=== PATIENT | female | born 1965 | race Caucasian/White ===

== ENCOUNTER 2018-04-29 18:07 | Emergency (ER) | payer MEDICAID, SELFPAY ==
[2018-04-29 18:09] VITALS: BP 138/98; PULSE 95; RESP 18; TEMP 37.1; O2SAT 99
--- NOTE | 2018-04-29 18:14 | DI.CT_ITS ---
SYMPTOM/DIAGNOSIS: RT SUPRAORBITAL PAIN AND SWELLING CT ORBITS: The study was carried out without contrast enhancement. No focal pathology is identified. There is some deterioration of image quality secondary to patient motion. Minimal mucosal thickening in the sphenoid and ethmoid sinuses are noted. There are no air fluid levels. A cortical stepoff is seen at the nasal maxillary suture anteriorly, incompletely imaged which could reflect a nondisplaced age indeterminate fracture. There is mild motion artifact at the skull base. No displaced fractures are visualized in the mandible. The right thomas-orbital soft tissues demonstrate swelling, The visualized pterygoid plates are intact. SUMMARY: No displaced fracture is seen with note made of motion artifact. A cortical step-off is seen at the nasal maxillary suture anteriorly which is incompletely issued and could reflect a nondisplaced age indeterminate fracture. Note is made of right periorbital soft tissue swelling.
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
--- NOTE | 2018-04-29 18:17 | DI.RAD_ITS ---
SYMPTOM/DIAGNOSIS: TRAUMA RIGHT WRIST: There is no evidence of a fracture or dislocation.
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
[2018-04-29 19:49] LABS: Abs Immature Grans 0.01 k/cumm (0.0-0.09); Absolute Basophil Count 0.01 k/cumm (0.0-0.2); Absolute Eosinophil Count 0.04 k/cumm (0.0-0.7); Absolute Lymphocyte Count 1.83 k/cumm (1.2-3.4); Absolute Monocyte Count 0.11 k/cumm (0.11-0.7); Absolute Neutrophil Count 2.21 k/cumm (1.2-6.7); Basophils % 0.2; Immature Grans % 0.2; Lymphocytes % 43.5; Mean Corp. HGB Concentration 34.1 g/dL (32.0-36.0); Mean Corpuscular Hemoglobin 32.4 pg (27.0-33.0); Mean Corpuscular Volume 94.9 fL (80-95); Mean Platelet Volume 10.1 fL (8.0-11.0); Monocytes % 2.6; Neutrophils % 52.5; RBC 4.32 m/cumm (4.00-5.20); RBC Distribution Width 13.3 % (11.7-14.6); White Blood Cell Count 4.21 k/cumm (4.4-10.8)
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
[2018-04-29 20:08] LABS: Anion Gap 8.2 mmol/L (3-11); BUN 24 mg/dL (7-18); CO2 25.8 mmol/L (21.0-32.0); CREATININE 0.78 mg/dL (0.55-1.02); Calcium 8.3 mg/dL (8.5-10.1); Chloride 107 mmol/L (98-107); ETHANOL BLOOD 176.4 mg/dL (<3); Glucose 90 mg/dL (70-100); Potassium 4.2 mmol/L (3.5-5.1); Sodium 141 mmol/L (136-145)
--- NOTE | 2018-04-29 20:11 | NUR.NOTE ---
Nursing Note: Pt resting comfortably - asleep but arousable. C-collar remains in place. Given blankets for comfort. Continue to monitor.
[2018-04-29 20:13] LABS: Platelet Count 83 x1000/uL (130-400)
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
[2018-04-29 20:32] LABS: *AMPHETAMINES SCREEN URINE Negative (Negative); *BARBITURATES SCREEN URINE Negative (Negative); *BENZODIAZEPINES SCREEN URINE Negative (Negative); Cannabinoids THC POSITIVE (Negative); Cocaine Screen,Urine Negative (Negative); METHADONE URINE SCREEN Negative (Negative); OPIATES URINE SCREEN Negative (Negative)
[2018-04-29 20:36] LABS: Tricyclic Antidepressants POSITIVE (Negative)
--- NOTE | 2018-04-29 22:31 | NUR.NOTE ---
Nursing Note: Pt reassessed. Resting comfortably, sleeping but arousable. Declines comfort measures
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
[2018-04-29 23:34] VITALS: BP 138/98; PULSE 95; RESP 18; TEMP 37.1; O2SAT 99
== END 2018-04-29 23:34 | disposition other institution (70) ==
PROVIDERS: Student in an Organized Health Care Education/Training Program; Emergency Provider Student in an Organized Health Care Education/Training Program; PCP Family Medicine
DX: S00.83XA Contusion of other part of head, initial encounter (principal); S02.2XXA Fracture of nasal bones, initial encounter for closed fracture; S69.91XA Unspecified injury of right wrist, hand and finger(s), initial encounter; F10.129 Alcohol abuse with intoxication, unspecified; Y90.6 Blood alcohol level of 120-199 mg/100 ml; Y35.813A Legal intervention involving manhandling, suspect injured, initial encounter; D69.6 Thrombocytopenia, unspecified; F11.20 Opioid dependence, uncomplicated; J44.9 Chronic obstructive pulmonary disease, unspecified; F17.210 Nicotine dependence, cigarettes, uncomplicated
CPT/HCPCS: 21310; 29125; 36415; 80048; 80307; 99285; 70450; 70480; 72125; 73110; 80320; 85025; L0172; L3807

== ENCOUNTER 2018-07-10 11:55 | Outpatient (CLI) | payer MEDICAID, SELFPAY ==
[2018-07-10 12:56] LABS: Abs Immature Grans 0.01 k/cumm (0.0-0.09); Absolute Basophil Count 0.01 k/cumm (0.0-0.2); Absolute Eosinophil Count 0.06 k/cumm (0.0-0.7); Absolute Lymphocyte Count 2.14 k/cumm (1.2-3.4); Absolute Monocyte Count 0.31 k/cumm (0.11-0.7); Absolute Neutrophil Count 2.61 k/cumm (1.2-6.7); Basophils % 0.2; Eosinophils % 1.2; HCT 37.2 % (36.0-46.0); HGB 12.2 g/dL (12.0-15.5); Immature Grans % 0.2; Lymphocytes % 41.6; Mean Corp. HGB Concentration 32.8 g/dL (32.0-36.0); Mean Corpuscular Hemoglobin 32.2 pg (27.0-33.0); Mean Corpuscular Volume 98.2 fL (80-95); Mean Platelet Volume 10.2 fL (8.0-11.0); Neutrophils % 50.8; Platelet Count 202 x1000/uL (130-400); RBC 3.79 m/cumm (4.00-5.20); White Blood Cell Count 5.14 k/cumm (4.4-10.8)
[2018-07-10 13:34] LABS: ALT 28 U/L (12-78); AST 28 U/L (15-37); Albumin 3.4 g/dL (3.4-5.0); Alkaline Phosphatase 74 U/L (46-116); Anion Gap 10.7 mmol/L (3-11); BUN 29 mg/dL (7-18); Bilirubin, Total 0.4 mg/dL (0.2-1.0); CO2 26.3 mmol/L (21.0-32.0); CREATININE 0.89 mg/dL (0.55-1.02); Calcium 8.6 mg/dL (8.5-10.1); Chloride 103 mmol/L (98-107); Glucose 108 mg/dL (70-100); Potassium 3.8 mmol/L (3.5-5.1); Sodium 140 mmol/L (136-145); Total Protein 7.5 g/dL (6.4-8.2)
[2018-07-11 10:00] LABS: Hepatitis C Ab w Rflx HCV PCR Reactive (NEGAT)
[2018-07-14 15:43] LABS: HCV RNA Detection Quantitative Undetected IU/mL (UNDECT)
== END 2018-07-10 12:15 ==
PROVIDERS: PCP Family Medicine; Visit Provider Nurse Practitioner Adult Health
DX: B18.2 Chronic viral hepatitis C (principal)
CPT/HCPCS: 36415; 80053; 86803; 85025; 87522

== ENCOUNTER 2018-09-07 02:49 | Emergency (ER) | payer MEDICAID, SELFPAY ==
--- NOTE | 2018-09-07 02:32 | W.ED.GENAD ---
Discharge Plan Disposition Patient Disposition: [facility] Condition: Stable Discharge Details Chief Complaint: ColdExpose Clinical Impression: Frostbite of both hands Reason For Visit: NATALIYA Primary Care Provider: Sujata Werner ED Provider: Angel Luis Gurrola Home Meds and New Rx's Prescriptions: No Action acetaminophen [Arthritis Pain Relief (acetam)] 650 MG tablet extended release 650 mg PO Q8H PRN RF: 0 lansoprazole 30 MG capsule,delayed release(DR/EC) 30 mg PO DAILY Qty: 90 RF: 3 dextroamphetamine-amphetamine [Adderall XR] 20 MG capsule,extended release 24hr 15 mg PO BID RF: 0 SHERIN Ankle Brace 1 EACH misc 1 ea Miscellaneous DAILY Qty: 1 RF: 0 promethazine 25 MG tablet 25 mg PO TID PRNQty: 90 RF: 11 spironolactone 25 MG tablet 25 mg PO DAILY Qty: 90 RF: 3 nabumetone 500 MG tablet 500 mg PO DAILY Qty: 90 RF: 3 cholecalciferol (vitamin D3) 1,000 UNIT tablet 1,000 unit PO DAILY Qty: 90 RF: 3 baclofen 10 MG tablet 10 mg PO Q4H PRN Qty: 540 RF: 3 short walking boot 1 u Miscellaneous ONCE Qty: 1 RF: 0 cetirizine 10 MG tablet 10 mg PO BID Qty: 180 RF: 3 Lyrica 100 MG capsule 100 mg PO BID Qty: 56 RF: 5 furosemide 40 MG tablet 40 mg PO DAILY Qty: 90 RF: 1 ProAir HFA 8.5 GM HFA aerosol inhaler 2 puff Inhalation Q4H PRN Qty: 5 RF: 0 Flovent HFA 12 GM HFA aerosol inhaler 110 mcg Inhalation prn bid Qty: 5 RF: 0 Multi 1 EACH tablet 1 ea PO DAILY Qty: 90 RF: 1 Boost 237 ML liquid 237 ml PO AC & HS PRNQty: 120 RF: 3 lorazepam 2 MG tablet 10 mg PO BID RF: 0 methadone [Dolophine] 10 MG tablet 40 mg PO DAILY RF: 0 cephalexin 500 MG capsule 500 mg PO QID Qty: 39 RF: 0 doxycycline hyclate 100 MG capsule 100 mg PO BID Qty: 19 RF: 0 Medical Decision Making 53 yo female states that yesterday morning at some time she was outside trying to help her dog when she fell and was unable to get up for unknown period of time. She was eventually able to get back inside and has had progressive worsening of pain, swelling and finger discoloaration of all of her fingers. On exam she has multiple rings on her fingers in multiple locations. The fingers are all significantly swollen, cold to touch and has no sensation to soft touch. She has very large blisters that appear hemorrhagic on exam on the fingers. Feel she requires tertiary care for this, nursing to try and remove the rings on her fingers and will place in warm water bath as well Spoke with [facility] who did not feel they could manage this. Spoke with Dr. Quiroz at [facility] who accepts the patient in transfer. Patient's hands were in a warm water bath for about 30 minutes, fingers are more pliable and warm to touch and do not feel continued warm water bath during transport would be beneficial as they have been at room temperature for quite some time prior to transfer. Differential Diagnosis frostbite, gangrene HPI General Mode of arrival: EMS. Date/Time Provider Initiated Documentation: 09/07/18 03:26. Limitations to Documentation: no limitations. Information obtained by: patient. History of Present Illness 53 year old F presents to the emergency department with the chief complaint of bilateral hand pain and swelling, described as severe, with intensity rated at >10. Quality is described as aching and crushing, and is localized to the upper extremity. Patient reports no radiation. Patient started experiencing this hour(s) (12) and it has been constant. No relieving factors improve symptom(s), No exacerbating factors reported . Patient notes no other symptoms.. Patient did receive the following treatments prior to arrival, none Related Data Home Medications Medication Instructions Recorded Confirmed acetaminophen [Arthritis Pain 650 mg PO Q8H PRN 12/25/16 09/07/18 Relief (acetam)] lansoprazole 30 mg PO DAILY #90 tab-cap 02/11/17 09/07/18 SHERIN Ankle Brace #1 ea 03/05/17 09/07/18 dextroamphetamine-amphetamine 15 mg PO BID tab-cap 03/05/17 09/07/18 [Adderall XR] promethazine 25 mg PO TID PRN #90 tab-cap 05/15/17 09/07/18 spironolactone 25 mg PO DAILY #90 tab-cap 05/23/17 09/07/18 cholecalciferol (vitamin D3) 1,000 unit PO DAILY #90 tab-cap 06/18/17 09/07/18 nabumetone 500 mg PO DAILY #90 tab 06/18/17 09/07/18 baclofen 10 mg PO Q4H PRN #540 tab-cap 06/26/17 09/07/18 cetirizine 10 mg PO BID #180 tab-cap 07/16/17 09/07/18 Lyrica 100 mg PO BID #56 tab-cap 08/20/17 09/07/18 Boost 237 ml PO AC & HS PRN #120 bottle 08/27/17 09/07/18 Flovent HFA 110 mcg INHALATION prn bid #5 08/27/17 09/07/18 inhaler Multi 1 ea PO DAILY #90 tab 08/27/17 09/07/18 ProAir HFA 2 puff INHALATION Q4H PRN #5 08/27/17 09/07/18 inhaler furosemide 40 mg PO DAILY #90 tab-cap 08/27/17 09/07/18 lorazepam 10 mg PO BID 11/05/17 09/07/18 cephalexin 500 mg PO QID #39 cap 11/09/17 09/07/18 doxycycline hyclate 100 mg PO BID #19 cap 11/09/17 09/07/18 methadone [Dolophine] 40 mg PO DAILY 11/09/17 09/07/18 Previous Rx's Medication Instructions Recorded spironolactone 25 mg PO DAILY #90 tab-cap 05/23/17 cholecalciferol (vitamin D3) 1,000 unit PO DAILY #90 tab-cap 06/18/17 nabumetone 500 mg PO DAILY #90 tab 06/18/17 baclofen 10 mg PO Q4H PRN #540 tab-cap 06/26/17 cetirizine 10 mg PO BID #180 tab-cap 07/16/17 Lyrica 100 mg PO BID #56 tab-cap 08/20/17 Flovent HFA 110 mcg INHALATION prn bid #5 08/27/17 inhaler Multi 1 ea PO DAILY #90 tab 08/27/17 ProAir HFA 2 puff INHALATION Q4H PRN #5 08/27/17 inhaler furosemide 40 mg PO DAILY #90 tab-cap 08/27/17 cephalexin 500 mg PO QID #39 cap 11/09/17 doxycycline hyclate 100 mg PO BID #19 cap 11/09/17 Allergies Allergy/AdvReac Type Severity Reaction Status Date / Time codeine Allergy Severe THROAT Unverified 09/07/18 03:15 SWELLING adhesive Allergy Itching Unverified 09/07/18 03:15 cat dander Allergy Unverified 09/07/18 03:15 pollen extracts Allergy Unverified 09/07/18 03:15 DANDER DUST Allergy Mild Uncoded 09/07/18 03:15 LOTIONS Allergy Unknown Uncoded 09/07/18 03:15 General MAXI: 3 Review of Systems Review of Systems All systems reviewed & are unremarkable except as noted in HPI and below Constitutional Denies chills and Denies fever(s) Cardiovascular Denies chest pain Gastrointestinal Denies abdominal pain, Denies nausea and Denies vomiting PFSH Medical History Bipolar disorder (Acute) Endocarditis (Acute) Polysubstance dependence including opioid type drug with complication, continuous use (Acute) Chronic osteomyelitis of right shoulder region (Acute) Alcohol abuse Asthma Bipolar disorder Cervical spondylosis Chronic hepatitis Drug abuse Endocarditis Endometriosis Gastroesophageal reflux disease Hepatitis C Inactive tuberculosis Lichen simplex chronicus Methicillin resistant Staphylococcus aureus infection Osteomyelitis Tobacco dependence syndrome Surgical History Abdominal hysterectomy (05/05/03) Colonoscopy - MAC Debridement, Bone Diagnostic Laproscopy EGD - MAC (~2001) Family History Mother Diabetes Brother Diabetes Other Neoplasm Social History Smoking/Tobacco Use Status: Current-Occasional Exam Const General: no acute distress Orientation: alert HENMT Head: normal to inspection Ears: external ears normal General nose exam: external nose normal Mouth: moist mucous membranes Eyes General: appearance normal, both eyes and all related structures Neck Neck: normal visual inspection Resp Effort & Inspection: normal respiratory effort and able to speak in complete sentences Cardio Rate: regular rate Skin General skin exam: pallor Neuro General: alert and oriented x3 Extrem Right upper extremity: cyanosis and edema Left upper extremity: cyanosis and edema Psych Mental Status: mental status grossly normal
--- NOTE | 2018-09-07 02:55 | ED.GENADUL_ITS ---
Discharge Plan Disposition Patient Disposition: [facility] Condition: Stable Discharge Details Chief Complaint: ColdExpose Clinical Impression: Frostbite of both hands Reason For Visit: NATALIYA Primary Care Provider: Sujata Werner ED Provider: Angel Luis Gurrola Home Meds and New Rx's Prescriptions: No Action acetaminophen [Arthritis Pain Relief (acetam)] 650 MG tablet extended release 650 mg PO Q8H PRN RF: 0 lansoprazole 30 MG capsule,delayed release(DR/EC) 30 mg PO DAILY Qty: 90 RF: 3 dextroamphetamine-amphetamine [Adderall XR] 20 MG capsule,extended release 24hr 15 mg PO BID RF: 0 SHERIN Ankle Brace 1 EACH misc 1 ea Miscellaneous DAILY Qty: 1 RF: 0 promethazine 25 MG tablet 25 mg PO TID PRNQty: 90 RF: 11 spironolactone 25 MG tablet 25 mg PO DAILY Qty: 90 RF: 3 nabumetone 500 MG tablet 500 mg PO DAILY Qty: 90 RF: 3 cholecalciferol (vitamin D3) 1,000 UNIT tablet 1,000 unit PO DAILY Qty: 90 RF: 3 baclofen 10 MG tablet 10 mg PO Q4H PRN Qty: 540 RF: 3 short walking boot 1 u Miscellaneous ONCE Qty: 1 RF: 0 cetirizine 10 MG tablet 10 mg PO BID Qty: 180 RF: 3 Lyrica 100 MG capsule 100 mg PO BID Qty: 56 RF: 5 furosemide 40 MG tablet 40 mg PO DAILY Qty: 90 RF: 1 ProAir HFA 8.5 GM HFA aerosol inhaler 2 puff Inhalation Q4H PRN Qty: 5 RF: 0 Flovent HFA 12 GM HFA aerosol inhaler 110 mcg Inhalation prn bid Qty: 5 RF: 0 Multi 1 EACH tablet 1 ea PO DAILY Qty: 90 RF: 1 Boost 237 ML liquid 237 ml PO AC & HS PRNQty: 120 RF: 3 lorazepam 2 MG tablet 10 mg PO BID RF: 0 methadone [Dolophine] 10 MG tablet 40 mg PO DAILY RF: 0 cephalexin 500 MG capsule 500 mg PO QID Qty: 39 RF: 0 doxycycline hyclate 100 MG capsule 100 mg PO BID Qty: 19 RF: 0 Medical Decision Making 53 yo female states that yesterday morning at some time she was outside trying to help her dog when she fell and was unable to get up for unknown period of time. She was eventually able to get back inside and has had progressive worsening of pain, swelling and finger discoloaration of all of her fingers. On exam she has multiple rings on her fingers in multiple locations. The fingers are all significantly swollen, cold to touch and has no sensation to soft touch. She has very large blisters that appear hemorrhagic on exam on the fingers. Feel she requires tertiary care for this, nursing to try and remove the rings on her fingers and will place in warm water bath as well Spoke with [facility] [place] did not feel they could manage this. Spoke with [facility]. Quiroz at [facility] who accepts the patient in transfer. Patient's hands were in a warm water bath for about 30 minutes, fingers are more pliable and warm to touch and do not feel continued warm water bath during transport would be beneficial as they have been at room temperature for quite some time prior to transfer. Differential Diagnosis frostbite, gangrene HPI General Mode of arrival: EMS . Date/Time Provider Initiated Documentation: 09/07/18 03:26 . Limitations to Documentation: no limitations . Information obtained by: patient . History of Present Illness 53 year old F presents to the emergency department with the chief complaint of bilateral hand pain and swelling, described as severe, with intensity rated at >10. Quality is described as aching and crushing, and is localized to the upper extremity. Patient reports no radiation. Patient started experiencing this hour(s) (12) and it has been constant. No relieving factors improve symptom(s), No exacerbating factors reported . Patient notes no other symptoms.. Patient did receive the following treatments prior to arrival, none Related Data Home Medications Medication Instructions Recorded Confirmed acetaminophen [Arthritis Pain 650 mg PO Q8H PRN 12/25/16 09/07/18 Relief (acetam)] lansoprazole 30 mg PO DAILY #90 tab-cap 02/11/17 09/07/18 SHERIN Ankle Brace #1 ea 03/05/17 09/07/18 dextroamphetamine-amphetamine 15 mg PO BID tab-cap 03/05/17 09/07/18 [Adderall XR] promethazine 25 mg PO TID PRN #90 tab-cap 05/15/17 09/07/18 spironolactone 25 mg PO DAILY #90 tab-cap 05/23/17 09/07/18 cholecalciferol (vitamin D3) 1,000 unit PO DAILY #90 tab-cap 06/18/17 09/07/18 nabumetone 500 mg PO DAILY #90 tab 06/18/17 09/07/18 baclofen 10 mg PO Q4H PRN #540 tab-cap 06/26/17 09/07/18 cetirizine 10 mg PO BID #180 tab-cap 07/16/17 09/07/18 Lyrica 100 mg PO BID #56 tab-cap 08/20/17 09/07/18 Boost 237 ml PO AC & HS PRN #120 bottle 08/27/17 09/07/18 Flovent HFA 110 mcg INHALATION prn bid #5 08/27/17 09/07/18 inhaler Multi 1 ea PO DAILY #90 tab 08/27/17 09/07/18 ProAir HFA 2 puff INHALATION Q4H PRN #5 08/27/17 09/07/18 inhaler furosemide 40 mg PO DAILY #90 tab-cap 08/27/17 09/07/18 lorazepam 10 mg PO BID 11/05/17 09/07/18 cephalexin 500 mg PO QID #39 cap 11/09/17 09/07/18 doxycycline hyclate 100 mg PO BID #19 cap 11/09/17 09/07/18 methadone [Dolophine] 40 mg PO DAILY 11/09/17 09/07/18 Previous Rx's Medication Instructions Recorded spironolactone 25 mg PO DAILY #90 tab-cap 05/23/17 cholecalciferol (vitamin D3) 1,000 unit PO DAILY #90 tab-cap 06/18/17 nabumetone 500 mg PO DAILY #90 tab 06/18/17 baclofen 10 mg PO Q4H PRN #540 tab-cap 06/26/17 cetirizine 10 mg PO BID #180 tab-cap 07/16/17 Lyrica 100 mg PO BID #56 tab-cap 08/20/17 Flovent HFA 110 mcg INHALATION prn bid #5 08/27/17 inhaler Multi 1 ea PO DAILY #90 tab 08/27/17 ProAir HFA 2 puff INHALATION Q4H PRN #5 08/27/17 inhaler furosemide 40 mg PO DAILY #90 tab-cap 08/27/17 cephalexin 500 mg PO QID #39 cap 11/09/17 doxycycline hyclate 100 mg PO BID #19 cap 11/09/17 Allergies Allergy/AdvReac Type Severity Reaction Status Date / Time codeine Allergy Severe THROAT Unverified 09/07/18 03:15 SWELLING adhesive Allergy Itching Unverified 09/07/18 03:15 cat dander Allergy Unverified 09/07/18 03:15 pollen extracts Allergy Unverified 09/07/18 03:15 DANDER DUST Allergy Mild Uncoded 09/07/18 03:15 LOTIONS Allergy Unknown Uncoded 09/07/18 03:15 General MAXI: 3 Review of Systems Review of Systems All systems reviewed & are unremarkable except as noted in HPI and below Constitutional Denies chills and Denies fever(s) Cardiovascular Denies chest pain Gastrointestinal Denies abdominal pain, Denies nausea and Denies vomiting PFSH Medical History Bipolar disorder (Acute) Endocarditis (Acute) Polysubstance dependence including opioid type drug with complication, continuous use (Acute) Chronic osteomyelitis of right shoulder region (Acute) Alcohol abuse Asthma Bipolar disorder Cervical spondylosis Chronic hepatitis Drug abuse Endocarditis Endometriosis Gastroesophageal reflux disease Hepatitis C Inactive tuberculosis Lichen simplex chronicus Methicillin resistant Staphylococcus aureus infection Osteomyelitis Tobacco dependence syndrome Surgical History Abdominal hysterectomy (05/05/03) Colonoscopy - MAC Debridement, Bone Diagnostic Laproscopy EGD - MAC (~2001) Family History Mother Diabetes Brother Diabetes Other Neoplasm Social History Smoking/Tobacco Use Status: Current-Occasional Exam Const General: no acute distress Orientation: alert HENMT Head: normal to inspection Ears: external ears normal General nose exam: external nose normal Mouth: moist mucous membranes Eyes General: appearance normal, both eyes and all related structures Neck Neck: normal visual inspection Resp Effort & Inspection: normal respiratory effort and able to speak in complete sentences Cardio Rate: regular rate Skin General skin exam: pallor Neuro General: alert and oriented x3 Extrem Right upper extremity: cyanosis and edema Left upper extremity: cyanosis and edema Psych Mental Status: mental status grossly normal
[2018-09-07] MEDS: HYDROmorphone 2 MG/ML VIAL IVP (03:00)
[2018-09-07 03:06] VITALS: BP 133/81; PULSE 125; RESP 20; TEMP 37.5; O2SAT 97
[2018-09-07 03:10] LABS: Abs Immature Grans 0.01 k/cumm (0.0-0.09); Absolute Basophil Count 0.01 k/cumm (0.0-0.2); Absolute Eosinophil Count 0.05 k/cumm (0.0-0.7); Absolute Monocyte Count 0.57 k/cumm (0.11-0.7); Absolute Neutrophil Count 4.34 k/cumm (1.2-6.7); Basophils % 0.1; Eosinophils % 0.7; HCT 40.5 % (36.0-46.0); HGB 13.8 g/dL (12.0-15.5); Immature Grans % 0.1; Lymphocytes % 26.5; Mean Corp. HGB Concentration 34.1 g/dL (32.0-36.0); Mean Corpuscular Hemoglobin 31.2 pg (27.0-33.0); Mean Corpuscular Volume 91.6 fL (80-95); Mean Platelet Volume 10.2 fL (8.0-11.0); Monocytes % 8.4; Neutrophils % 64.2; RBC 4.42 m/cumm (4.00-5.20); RBC Distribution Width 12.8 % (11.7-14.6); White Blood Cell Count 6.78 k/cumm (4.4-10.8)
[2018-09-07 03:23] LABS: ALT 34 U/L (12-78); AST 39 U/L (15-37); Albumin 3.3 g/dL (3.4-5.0); Alkaline Phosphatase 59 U/L (46-116); Anion Gap 9.3 mmol/L (3-11); BUN 19 mg/dL (7-18); CO2 24.7 mmol/L (21.0-32.0); Calcium 8.7 mg/dL (8.5-10.1); Chloride 101 mmol/L (98-107); Glucose 135 mg/dL (70-100); Potassium 3.7 mmol/L (3.5-5.1); Sodium 135 mmol/L (136-145); Total Protein 7.7 g/dL (6.4-8.2)
[2018-09-07 03:30] LABS: Prothrombin Time 10.2 sec (9.3-11.0)
[2018-09-07 03:32] LABS: ETHANOL BLOOD < 3.0 mg/dL (<3)
[2018-09-07 03:41] LABS: Platelet Count 80 x1000/uL (130-400)
[2018-09-07 03:46] VITALS: BP 133/81; PULSE 125; RESP 20; TEMP 37.5; O2SAT 97
== END 2018-09-07 03:41 ==
LOC: ER 03:25
PROVIDERS: Emergency Provider Emergency Medicine; PCP Family Medicine
DX: T33.531A Superficial frostbite of right finger(s), initial encounter (principal); T33.532A Superficial frostbite of left finger(s), initial encounter; X31.XXXA Exposure to excessive natural cold, initial encounter; W18.30XA Fall on same level, unspecified, initial encounter; R23.0 Cyanosis; R60.0 Localized edema; J44.9 Chronic obstructive pulmonary disease, unspecified; F17.210 Nicotine dependence, cigarettes, uncomplicated
CPT/HCPCS: 36415; 80053; 96374; 96375; 99285; 80320; 85025; 85610; 85730

== ENCOUNTER 2018-09-25 11:57 | Inpatient (IN) | payer MEDICAID, SELFPAY ==
[2018-09-25] VITALS (34 sets, daily range): BP systolic 103–132; BP diastolic 61–92; PULSE 80–140; RESP 11–37; TEMP 36.5; O2SAT 98–100
--- NOTE | 2018-09-25 12:12 | W.ED.GENAD ---
Discharge Plan Disposition Patient Disposition: [facility] Condition: Stable Discharge Details Chief Complaint: PsychEval Clinical Impression: Hypercalcemia, Depression, Suicidal ideations Primary Care Provider: Sujata Werner ED Provider: David Caldera Home Meds and New Rx's Prescriptions: No Action acetaminophen [Arthritis Pain Relief (acetam)] 650 MG tablet extended release 650 mg PO Q8H PRN RF: 0 lansoprazole 30 MG capsule,delayed release(DR/EC) 30 mg PO DAILY Qty: 90 RF: 3 dextroamphetamine-amphetamine [Adderall XR] 20 MG capsule,extended release 24hr 15 mg PO BID RF: 0 SHERIN Ankle Brace 1 EACH misc 1 ea Miscellaneous DAILY Qty: 1 RF: 0 promethazine 25 MG tablet 25 mg PO TID PRNQty: 90 RF: 11 spironolactone 25 MG tablet 25 mg PO DAILY Qty: 90 RF: 3 nabumetone 500 MG tablet 500 mg PO DAILY Qty: 90 RF: 3 cholecalciferol (vitamin D3) 1,000 UNIT tablet 1,000 unit PO DAILY Qty: 90 RF: 3 short walking boot 1 u Miscellaneous ONCE Qty: 1 RF: 0 cetirizine 10 MG tablet 10 mg PO BID Qty: 180 RF: 3 Lyrica 100 MG capsule 100 mg PO BID Qty: 56 RF: 5 furosemide 40 MG tablet 40 mg PO DAILY Qty: 90 RF: 1 ProAir HFA 8.5 GM HFA aerosol inhaler 2 puff Inhalation Q4H PRN Qty: 5 RF: 0 Flovent HFA 12 GM HFA aerosol inhaler 110 mcg Inhalation prn bid Qty: 5 RF: 0 Multi 1 EACH tablet 1 ea PO DAILY Qty: 90 RF: 1 Boost 237 ML liquid 237 ml PO AC & HS PRNQty: 120 RF: 3 lorazepam 2 MG tablet 10 mg PO BID RF: 0 methadone [Dolophine] 10 MG tablet 40 mg PO DAILY RF: 0 polyethylene glycol 3350 [Miralax] 17 gram Powder In Packet 17 g PO DAILY PRNRF: 0 calcium carbonate 600 mg calcium (1,500 mg) Tablet 600 mg PO BID RF: 0 diclofenac potassium 50 mg Tablet 1 tab PO BID RF: 0 Medical Decision Making This is a 53-year-old female with multiple past medical problems, who presents today for evaluation of suicidal ideations. She has had multiple stressors in her life as of late, and she states that currently she just wants her life to end. She would like to get in the bathtub and slit her wrists or take a tunnel pills so I . She denies taking any extra medications today. She has had a suicidal attempt in 2016. Patient does look notably anxious. She does show signs of chronic pain in her hands secondary to her old frostbite, but no signs of ischemia or other abnormalities. We will perform medical clearance, consult psychiatry, and recommended admission and placement. 1:57 PM Patient's laboratory workup has returned, no significant abnormalities aside for slightly elevated BUN/creatinine ratio suggesting dehydration, as well as slightly elevated calcium at 12.1. The patient shows no signs of psychosis, significant weakness, or profound fatigue. I doubt that the hypercalcemia is the cause of her depression as this would be inconsistent with a hypercalcemic episode, additionally she has a history of depression, and suicidality in the past. Treatment for this level of otherwise asymptomatic hypercalcemia is merely fluids, which we are already giving secondary to her mild dehydration. I do feel that the patient is otherwise medically cleared, and we will have mental health come and discussed the case with the patient. I do feel that she would benefit from inpatient admission with her history, previous attempts, and current plan. 3:20 PM Our mental health advocates have seen and assessed the patient, and in spite of contacting multiple facilities there are no current beds available. I have contacted the hospitalist Dr. Rajan and discussed the case with him, he agrees with the current assessment and plan. Patient will be [facility] to [facility] for further management until bed placement at a psychiatric facility can be found. I have extensively reviewed the treatment plan with the patient. I have addressed all patient concerns at this time. I have also discussed the plan with the admitting physician and they agree with the current assessment and plan and have agreed to assume responsibility for the patient. All parties demonstrate verbal understanding and agreement with our assessment and plan at this time. EKG 12: 54 Rate 123, intervals normal, sinus tachycardia, no ST elevations or depressions, less than 1 mm elevation in V1 V2. This is J-point elevation. This is normal. There is an inverted T wave in lead III and aVF. No broad terminal S wave in lead I. HPI General Date/Time Provider Initiated Documentation: 09/25/18 11:59. HPI Narrative: This is a 53-year-old female with multiple medical problems including recent frostbite of her hands bilaterally, in addition to a history of hepatitis C, COPD, bipolar disorder, and previous suicide attempt in 2016. She presents today for evaluation of suicidal ideations. Patient states that she has had multiple prior stressors and complications in her life over the last month. She feels that her life is overwhelming and she just wants it to end. She states that she would like to end her life by either cutting her wrist, taking a tub and slicing her wrists in the tub, or taking copious amounts of medications. Patient denies having taken any extra medications today. She denies any auditory or visual hallucinations. She was sent by her psychologist today for further evaluation. Aside for chronic pain, including chronic pain in her hands up to the frostbite the patient has no other complaints. No other modifying factors. She denies any recent surgeries. Related Data Home Medications Medication Instructions Recorded Confirmed acetaminophen [Arthritis Pain 650 mg PO Q8H PRN 12/25/16 09/25/18 Relief (acetam)] lansoprazole 30 mg PO DAILY #90 tab-cap 02/11/17 09/25/18 SHERIN Ankle Brace #1 ea 03/05/17 09/07/18 dextroamphetamine-amphetamine 15 mg PO BID tab-cap 03/05/17 09/07/18 [Adderall XR] promethazine 25 mg PO TID PRN #90 tab-cap 05/15/17 09/25/18 spironolactone 25 mg PO DAILY #90 tab-cap 05/23/17 09/25/18 cholecalciferol (vitamin D3) 1,000 unit PO DAILY #90 tab-cap 06/18/17 09/25/18 nabumetone 500 mg PO DAILY #90 tab 06/18/17 09/25/18 cetirizine 10 mg PO BID #180 tab-cap 07/16/17 09/25/18 Lyrica 100 mg PO BID #56 tab-cap 08/20/17 09/07/18 Boost 237 ml PO AC & HS PRN #120 bottle 08/27/17 09/25/18 Flovent HFA 110 mcg INHALATION prn bid #5 08/27/17 09/25/18 inhaler Multi 1 ea PO DAILY #90 tab 08/27/17 09/25/18 ProAir HFA 2 puff INHALATION Q4H PRN #5 08/27/17 09/25/18 inhaler furosemide 40 mg PO DAILY #90 tab-cap 08/27/17 09/25/18 lorazepam 10 mg PO BID 11/05/17 09/07/18 methadone [Dolophine] 40 mg PO DAILY 11/09/17 09/07/18 calcium carbonate 600 mg PO BID 09/25/18 09/25/18 diclofenac potassium 1 tab PO BID 09/25/18 09/25/18 polyethylene glycol 3350 [Miralax] 17 g PO DAILY PRN 09/25/18 09/25/18 Previous Rx's Medication Instructions Recorded spironolactone 25 mg PO DAILY #90 tab-cap 05/23/17 cholecalciferol (vitamin D3) 1,000 unit PO DAILY #90 tab-cap 06/18/17 nabumetone 500 mg PO DAILY #90 tab 06/18/17 cetirizine 10 mg PO BID #180 tab-cap 07/16/17 Lyrica 100 mg PO BID #56 tab-cap 08/20/17 Flovent HFA 110 mcg INHALATION prn bid #5 08/27/17 inhaler Multi 1 ea PO DAILY #90 tab 08/27/17 ProAir HFA 2 puff INHALATION Q4H PRN #5 08/27/17 inhaler furosemide 40 mg PO DAILY #90 tab-cap 08/27/17 Allergies Allergy/AdvReac Type Severity Reaction Status Date / Time codeine Allergy Severe THROAT Unverified 09/07/18 03:15 SWELLING adhesive Allergy Itching Unverified 09/07/18 03:15 cat dander Allergy Unverified 09/07/18 03:15 pollen extracts Allergy Unverified 09/07/18 03:15 DANDER DUST Allergy Mild Uncoded 09/07/18 03:15 LOTIONS Allergy Unknown Uncoded 09/07/18 03:15 General Stated Complaint: PsychEval MAXI: 2 Review of Systems Review of Systems All systems reviewed & are unremarkable except as noted in HPI and below PFSH Social History Smoking and Tabacco status: Current-Occasional Exam Narrative Exam Narrative: 1.Const: Well-nourished, Well-developed, appearing stated age 2.Eyes: PERRL, no conjunctival injection, and symmetrical lids. 3.ENT: Atraumatic external nose and ears. Moist MM. Neck: Symmetric, trachea midline, No thyromegaly. 4.CVS: +S1/S2, No murmurs or gallops. Peripheral pulses 2+ and equal in all extremities. Brisk capillary refill in all extremities. 5.RESP: Unlabored respiratory effort. Clear to auscultation bilaterally. No wheezes rales or rhonchi 6.GI: Soft, Nontender/Nondistended, No hepatosplenomegaly. No guarding or rebound. 7.MSK: Normocephalic/Atraumatic, Extremities w/o deformity or ttp,Normal movement of all extremities, his fingers are a very evi red. Notable old blisters, and chronic skin breakdown at the tips. Capillary refill remains brisk. Sensation is intact. 8.Skin: Warm, Dry. Please see musculoskeletal 9.Neuro: radiology teacher II-XII grossly intact. Sensation grossly intact, no focal neurologic deficits. 10.Psych: (AAO) x3. Very anxious appearing, tearful and crying Course Vital Signs Pulse 140 H 09/25/18 12:03 Respiratory Rate 18 09/25/18 12:03 Blood Pressure 125/92 H 09/25/18 12:03 Pulse Oximetry 100 09/25/18 12:03 Pulse 140 H 09/25/18 12:03 Respiratory Rate 18 09/25/18 12:03 Respiratory Effort Non-Labored 09/25/18 12:09 Blood Pressure 125/92 H 09/25/18 12:03 Pulse Oximetry 100 09/25/18 12:03 Oxygen Delivery Method Room Air 09/25/18 12:03 Oxygen Flow Rate 0 09/25/18 12:03 Pain Level 10 09/25/18 12:03
[2018-09-25] MEDS: Acetaminophen 500 MG TAB 1000 MG PO (12:58)
[2018-09-25] MEDS: Ketorolac 30 MG/ML VIAL IM (12:59)
[2018-09-25] MEDS: MORPHine 10 MG/ML VIAL 4 MG IVP (12:59)
[2018-09-25] MEDS: Normal Saline 1,000 ML 1000 ML IV ×3 (13:02→14:40)
[2018-09-25 13:05] LABS: Abs Immature Grans 0.02 k/cumm (0.0-0.09); HCT 46.5 % (36.0-46.0); HGB 16.1 g/dL (12.0-15.5); Mean Corp. HGB Concentration 34.6 g/dL (32.0-36.0); Mean Corpuscular Hemoglobin 30.7 pg (27.0-33.0); Mean Corpuscular Volume 88.7 fL (80-95); Mean Platelet Volume 9.8 fL (8.0-11.0); RBC 5.24 m/cumm (4.00-5.20); RBC Distribution Width 13.8 % (11.7-14.6); White Blood Cell Count 11.35 k/cumm (4.4-10.8)
[2018-09-25 13:05] LABS: Bilirubin Negative (Negative); Blood Negative (Negative); Clarity Clear; Glucose Negative (Negative); Ketones Trace mg/dL (Negative); Leukocyte Esterase Negative (Negative); Nitrite Negative (Negative); Specific Gravity 1.015 (1.005-1.025); Urobilinogen 0.2 EU/dL (Up TO 0.2); pH 5.5 (5-8)
[2018-09-25 13:18] LABS: *AMPHETAMINES SCREEN URINE Negative (Negative); *BARBITURATES SCREEN URINE Negative (Negative); *BENZODIAZEPINES SCREEN URINE Negative (Negative); Cannabinoids THC POSITIVE (Negative); Cocaine Screen,Urine Negative (Negative); METHADONE URINE SCREEN Negative (Negative); OPIATES URINE SCREEN Negative (Negative)
[2018-09-25 13:21] LABS: Tricyclic Antidepressants POSITIVE (Negative)
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
[2018-09-25 13:22] LABS: Absolute Monocyte Count 0.68 k/cumm (0.11-0.7); Absolute Neutrophil Count 8.17 k/cumm (1.2-6.7); Atypical Lymphocytes % 5; Diff Comment Manual Differential; Platelet Count 220 x1000/uL (130-400); RBC Morphology Normal
[2018-09-25 13:27] LABS: ALT 26 U/L (12-78); AST 23 U/L (15-37); Albumin 4.1 g/dL (3.4-5.0); Alkaline Phosphatase 70 U/L (46-116); Anion Gap 11.2 mmol/L (3-11); BUN 40 mg/dL (7-18); Bilirubin, Total 0.7 mg/dL (0.2-1.0); CO2 30.8 mmol/L (21.0-32.0); CREATININE 1.57 mg/dL (0.55-1.02); Chloride 93 mmol/L (98-107); Estimated GFR 34.73 (mL/min/1.73m2); Glucose 100 mg/dL (70-100); Potassium 3.6 mmol/L (3.5-5.1); Sodium 135 mmol/L (136-145); TSH (W/Ref FT4) 1.39 uIU/mL (0.358-3.74); Total Protein 10.1 g/dL (6.4-8.2)
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
[2018-09-25 13:36] LABS: Calcium 12.1 mg/dL (8.5-10.1)
[2018-09-25 13:38] LABS: Salicylate 4.4 mg/dL (2.8-20.0)
[2018-09-25 13:45] LABS: ETHANOL BLOOD < 3.0 mg/dL (<3)
[2018-09-25 13:46] LABS: Acetaminophen < 2 ug/mL (10-30)
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
[2018-09-25 15:56] LABS: ALT 19 U/L (12-78); AST 14 U/L (15-37); Albumin 2.4 g/dL (3.4-5.0); Alkaline Phosphatase 40 U/L (46-116); Anion Gap 7.1 mmol/L (3-11); BUN 35 mg/dL (7-18); Bilirubin, Total 0.3 mg/dL (0.2-1.0); CO2 27.9 mmol/L (21.0-32.0); CREATININE 1.22 mg/dL (0.55-1.02); Calcium 8.1 mg/dL (8.5-10.1); Chloride 107 mmol/L (98-107); Estimated GFR 46.47 (mL/min/1.73m2); Glucose 138 mg/dL (70-100); Sodium 142 mmol/L (136-145)
[2018-09-25 16:28] LABS: Potassium 2.8 mmol/L (3.5-5.1)
[2018-09-25] MEDS: Potassium Chloride 20 MEQ TABCR 40 MEQ PO (16:35)
--- NOTE | 2018-09-25 17:04 | HPE_ITS ---
Date of service: 09/25/18 Time of Service: 16:43 Assessment and Plan (1) Depression: Current visit: Yes Status: Chronic Acute on chronic depression. She is voicing suicidal ideation. She had at this point has not had any active attempt but states that she would either slit her wrists or take an overdose. Mental health has seen her and is looking for psychiatric placement. (2) Bipolar disorder: Current visit: Yes Status: Chronic Not currently actively treating bipolar disorder. It is not clear that she has had active follow-up with an ROSA Quesada. She says she sees Nadiya Tyler in [facility] for psychiatric treatment. (3) Tobacco dependence syndrome: Current visit: Yes Status: Chronic Will provide nicotine replete (4) Hepatitis C: Current visit: Yes Status: Chronic No evidence of jaundice or hepatosplenomegaly. No evidence of chronic liver disease at this time. (5) Psychogenic nonepileptic seizure: Current visit: Yes Status: Chronic She has been on Klonopin 1 mg twice daily. Will continue (6) Attention deficit disorder (ADD) in adult: Current visit: Yes Status: Chronic She has been on Adderall XR 20 mg twice daily. Will continue. (7) History of intravenous drug use in remission: Current visit: Yes Status: Resolved She denies any recent IV drug use. Her urine drug screen does not show evidence of intravenous drug abuse. (8) On stimulant medication: Current visit: Yes Status: Chronic Chronically on Adderall for ADHD History of Present Illness Chief Complaint: Suicidal ideation Narrative: This is a 53-year-old woman who presents to the emergency room with suicidal ideation. She states that she is depressed and can no longer take care of herself. Her plan is to either take a drug overdose or slit her wrists. She has a history of a previous very serious drug overdose attempt. She has underlying bipolar disorder, a history of substance abuse. She was evaluated by mental health in the emergency room in an attempt to voluntarily place her in a psychiatric facility failed as there w ere no available beds. She is being admitted to [facility] for further observation in anticipation of psychiatric bed availability. Review of Systems Constitutional Denies excessive sweating, Denies frequent falls, Denies headache(s) and Reports weight loss ENT Denies dizziness, Denies headache(s), Reports nasal congestion and Denies throat swelling Cardiovascular Denies chest pain, Denies edema, Denies dyspnea, Denies dyspnea on exertion and Denies orthopnea Respiratory Denies change in phlegm color, Denies cough, Denies excessive phlegm production, Denies dyspnea and Denies dyspnea on exertion Gastrointestinal Denies change in bowel habits, Denies diarrhea, Denies nausea and Denies vomiting Genitourinary Denies urinary frequency and Denies urinary incontinence Musculoskeletal Denies back pain and Reports deformity (Both hands show residual signs from previous frostbite, swelling, redness, ) Integumentary/Breasts Denies rash, Denies sores and Denies wounds Neurologic Denies confusion, Denies dizziness, Denies frequent falls, Denies headache(s), Denies focal weakness and Denies sensory deficit Psychiatric Reports anxiety, Denies confusion, Denies depression, Reports difficulty concentrating, Reports irritability, Reports mood swings and Reports suicidal ideation Endocrine Denies cold intolerance and Denies excessive sweating Hematologic/Lymphatic Denies easy bleeding and Denies easy bruising Allergic/Immunologic Denies urticaria and Denies throat swelling [facility] Medical History Tobacco dependence syndrome (Chronic) Inactive tuberculosis (Inactive) Drug abuse (Inactive) Alcohol abuse (Inactive) Chronic hepatitis (Chronic) Bipolar disorder (Chronic) Endocarditis (Resolved) Methicillin resistant Staphylococcus aureus infection (Resolved) Cervical spondylosis (Chronic) Lichen simplex chronicus (Resolved) Hepatitis C (Chronic) Gastroesophageal reflux disease (Chronic) Asthma (Chronic) Osteomyelitis (Resolved) Thrombocytopenia (Resolved 08/23/16) Staphylococcal infection of skin (Resolved 11/07/16) Sleep disturbance (Resolved 08/23/16) Psychogenic nonepileptic seizure (Chronic 11/27/16) Paresthesia (Chronic 08/23/16) Osteomyelitis (Resolved 07/09/14) On stimulant medication (Chronic 08/20/17) Mood disorder (Chronic 08/23/16) MRSA (methicillin resistant Staphylococcus aureus) (Resolved 07/09/14) Lichen simplex chronicus (Resolved 07/16/14) History of intravenous drug use in remission (Resolved 07/09/14) History of endocarditis (Resolved 07/09/14) GERD (gastroesophageal reflux disease) (Chronic 07/09/14) Depression (Chronic 08/23/16) Congenital connective tissue disorder (Chronic) Cirrhosis of liver without ascites (Chronic 11/27/16) Chronic pain syndrome (Chronic 10/03/16) Chronic nausea (Chronic 07/09/14) Cervical spondylosis (Chronic 07/09/14) COPD (chronic obstructive pulmonary disease) (Chronic 08/23/16) Attention deficit disorder (ADD) in adult (Chronic) Alcohol abuse (Resolved 07/09/14) Adjustment disorder with mixed anxiety and depressed mood (Chronic 08/27/17) Acute allergic rhinitis due to pollen (Chronic 05/29/17) Polysubstance dependence including opioid type drug with complication, continuous use (Resolved) Chronic osteomyelitis of right shoulder region (Chronic) Endometriosis (Resolved) Surgical History Colonoscopy - MAC (Resolved) Debridement, Bone (Resolved) Abdominal hysterectomy (Resolved 05/05/03) Diagnostic Laproscopy (Resolved) EGD - MAC (Resolved ~2001) Family History Mother Diabetes Brother Diabetes Other Neoplasm Social History Smoking and Tabacco status: Current-Occasional Meds Home Medications Medication Instructions Recorded Confirmed Type acetaminophen [Arthritis Pain 650 mg PO Q8H PRN 12/25/16 09/25/18 History Relief (acetam)] lansoprazole 30 mg PO DAILY #90 tab-cap 02/11/17 09/25/18 History SHERIN Ankle Brace #1 ea 03/05/17 09/07/18 History dextroamphetamine-amphetamine 15 mg PO BID tab-cap 03/05/17 09/07/18 History [Adderall XR] promethazine 25 mg PO TID PRN #90 tab-cap 05/15/17 09/25/18 History spironolactone 25 mg PO DAILY #90 tab-cap 05/23/17 09/25/18 Rx cholecalciferol (vitamin D3) 1,000 unit PO DAILY #90 tab-cap 06/18/17 09/25/18 Rx nabumetone 500 mg PO DAILY #90 tab 06/18/17 09/25/18 Rx Short Walking Boot 1 u MISCELLANEOUS ONCE #1 unit 07/11/17 09/07/18 Clinic cetirizine 10 mg PO BID #180 tab-cap 07/16/17 09/25/18 Rx Lyrica 100 mg PO BID #56 tab-cap 08/20/17 09/07/18 Rx Boost 237 ml PO AC & HS PRN #120 bottle 08/27/17 09/25/18 History Flovent HFA 110 mcg INHALATION prn bid #5 08/27/17 09/25/18 Rx inhaler Multi 1 ea PO DAILY #90 tab 08/27/17 09/25/18 Rx ProAir HFA 2 puff INHALATION Q4H PRN #5 08/27/17 09/25/18 Rx inhaler furosemide 40 mg PO DAILY #90 tab-cap 08/27/17 09/25/18 Rx calcium carbonate 600 mg PO BID 09/25/18 09/25/18 History clonazepam [Klonopin] 1 mg PO BID 09/25/18 09/25/18 History diclofenac potassium 1 tab PO BID 09/25/18 09/25/18 History polyethylene glycol 3350 [Miralax] 17 g PO DAILY PRN 09/25/18 09/25/18 History Allergies Allergy/AdvReac Type Severity Reaction Status Date / Time codeine Allergy Severe THROAT Unverified 09/07/18 03:15 SWELLING adhesive Allergy Itching Unverified 09/07/18 03:15 cat dander Allergy Unverified 09/07/18 03:15 pollen extracts Allergy Unverified 09/07/18 03:15 DANDER DUST Allergy Mild Uncoded 09/07/18 03:15 LOTIONS Allergy Unknown Uncoded 09/07/18 03:15 Exam Narrative Exam Narrative: Anxious appearing, pressured speech, frequent tearful episodes which rapidly joe Const General: cooperative, comfortable, no acute distress and disheveled Nutritional Appearance: thin Orientation: alert, awake and oriented x3 HENMT Head: normal to inspection Ears: hearing grossly normal bilaterally, TM normal on the right and TM normal on the left Outer ear/TM images: 1. red, dry areas 2. red, dry areas General nose exam: external nose normal Face and sinus: face symmetric Mouth: oropharynx normal Teeth and gingiva: poor dentition (No upper teeth, only front teeth in the lower) Eyes General: appearance normal, both eyes and all related structures Neck Neck: normal visual inspection Thyroid: symmetrical Carotids: normal carotid upstroke Lymphatic: no lymphadenopathy noted Chest Chest: normal inspection of the chest Resp Effort & Inspection: normal respiratory effort Auscultation: clear to auscultation bilaterally Cardio Jugular venous pressure: no JVD Rate: regular rate Rhythm: regular rhythm Heart Sounds: S1 normal, S2 normal and no murmurs GI Inspection: normal to inspection Palpation: soft, no hepatosplenomegaly and nontender Back/Spine/Pelvis Back: no CVA tenderness Cervical Spine: normal cervical lordosis Thoracic/Lumbar Spine: thoracic and lumbar spine normal to inspection Skin General skin exam: no rashes or lesions noted Wounds: amputation site (Tips of 2 of her 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 exfoliated, crusted over, no infection) Neuro General: alert, awake, oriented x3, moves all extremities and no focal motor deficits Cranial Nerves: CN's II-XI intact bilaterally Speech: speech normal Extrem General: normal to inspection Hand/finger images: 1. swollen, tender 2. swollen, tender Psych Appearance: disheveled Speech and Movement: agitated and pressured speech Mood: anxious mood, dysthymic mood and manic mood Affect: labile affect, animated and anxious affect Attitude: cooperative Thought Process: circumstantial Insight: limited Other: I can't take care of myself anymore Results Labs : 09/25/18 12:50 09/25/18 15:19 Laboratory Results - last 24 hr 09/25/18 09/25/18 09/25/18 12:00 12:00 12:50 WBC RBC Hgb Hct MCV MCH MCHC RDW Plt Count MPV Immature Gran % Neutrophils % Lymphocytes % Atypical Lymphs % Monocytes % Eosinophils % Basophils % Absolute Neutrophils Absolute Lymphocytes Absolute Monocytes Absolute Eosinophils Absolute Basophils Differential Comment RBC Morphology Sodium Potassium Chloride Carbon Dioxide Anion Gap BUN Creatinine Estimated GFR/1.73 m2 Glucose Calcium Total Bilirubin AST ALT Alkaline Phosphatase Total Protein Albumin TSH Urine Color Yellow Urine Clarity Clear Urine pH 5.5 Ur Specific [place] 1.015 Urine Protein Negative Urine Ketones Trace H Urine Blood Negative Urine Nitrite Negative Urine Bilirubin Negative Urine Urobilinogen 0.2 Ur Leukocyte Esterase Negative Urine Glucose Negative Salicylates 4.4 Urine Opiates Screen Negative Urine Methadone Screen Negative Acetaminophen < 2 L Ur Barbiturates Screen Negative Ur Tricyclics Screen Positive Ur Amphetamines Screen Negative U Benzodiazepines Scrn Negative Urine Cocaine Screen Negative Ur THC Screen Positive Ethyl Alcohol 09/25/18 09/25/18 09/25/18 12:50 12:50 15:19 WBC 11.35 H RBC 5.24 H Hgb 16.1 H Hct 46.5 H MCV 88.7 MCH 30.7 MCHC 34.6 RDW 13.8 Plt Count 220 D MPV 9.8 Immature Gran % 0.0 Neutrophils % 72.0 Lymphocytes % 17.0 Atypical Lymphs % 5 Monocytes % 6.0 Eosinophils % 0.0 Basophils % 0.0 Absolute Neutrophils 8.17 H Absolute Lymphocytes 2.50 Absolute Monocytes 0.68 Absolute Eosinophils 0.00 Absolute Basophils 0.00 Differential Comment Manual differential RBC Morphology Normal Sodium 135 L 142 Potassium 3.6 2.8 L* Chloride 93 L 107 Carbon Dioxide 30.8 27.9 Anion Gap 11.2 H 7.1 BUN 40 H 35 H Creatinine 1.57 H 1.22 H Estimated GFR/1.73 m2 34.73 46.47 Glucose 100 138 H Calcium 12.1 H* 8.1 L Total Bilirubin 0.7 0.3 AST 23 14 L ALT 26 19 Alkaline Phosphatase 70 40 L Total Protein 10.1 H 6.0 L Albumin 4.1 2.4 L TSH 1.39 Urine Color Urine Clarity Urine pH Ur Specific [place] Urine Protein Urine Ketones Urine Blood Urine Nitrite Urine Bilirubin Urine Urobilinogen Ur Leukocyte Esterase Urine Glucose Salicylates Urine Opiates Screen Urine Methadone Screen Acetaminophen Ur Barbiturates Screen Ur Tricyclics Screen Ur Amphetamines Screen U Benzodiazepines Scrn Urine Cocaine Screen Ur THC Screen Ethyl Alcohol < 3.0 Last Vital Signs Pulse 109 H 09/25/18 15:16 Resp 15 09/25/18 15:16 BP 115/68 09/25/18 15:16 Pulse Ox 100 09/25/18 12:03
[2018-09-25] MEDS: clonazePAM 1 MG TAB PO (21:43)
[2018-09-25] MEDS: Pregabalin 100 MG CAP PO (21:44)
[2018-09-25] MEDS: Acetaminophen 325 MG TAB PO (21:45)
[2018-09-25] MEDS: Ibuprofen 400 MG TAB PO (21:46)
[2018-09-26 01:16] VITALS: BP 99/59; PULSE 95; RESP 20; TEMP 36.6; O2SAT 98
[2018-09-26] MEDS: clonazePAM 1 MG TAB PO ×2 (08:04→19:29)
[2018-09-26] MEDS: Lansoprazole 30 MG CAPCR PO (08:04)
[2018-09-26] MEDS: Pregabalin 100 MG CAP PO ×2 (08:04→19:29)
[2018-09-26 08:22] VITALS: BP 120/79; PULSE 109; RESP 28; TEMP 36.6; O2SAT 97
--- NOTE | 2018-09-26 10:22 | INITIAL_ITS ---
- If Service Date Differs Date of service: 09/26/18 Time of Service: 09:53 Care Management Initial Assess REASON FOR HOSPITALIZATION:: Suicidal Ideation PAST MEDICAL HISTORY/PAST SURGICAL HISTORY:: Tobacco dependence syndrome (Chronic). Inactive tuberculosis (Inactive). Drug abuse (Inactive). Alcohol abuse (Inactive). Chronic hepatitis (Chronic). Bipolar disorder (Chronic). Endocarditis (Resolved). Methicillin resistant Staphylococcus aureus infection (Resolved). Cervical spondylosis (Chronic). Lichen simplex chronicus (Resolved). Hepatitis C (Chronic). Gastroesophageal reflux disease (Chronic). Asthma (Chronic). Osteomyelitis (Resolved). Thrombocytopenia (Resolved 08/23/16). Staphylococcal infection of skin (Resolved 11/07/16). Sleep disturbance (Resolved 08/23/16). Psychogenic nonepileptic seizure (Chronic 11/27/16). Paresthesia (Chronic 08/23/16). Osteomyelitis (Resolved 07/09/14). On stimulant medication (Chronic 08/20/17). Mood disorder (Chronic 08/23/16). MRSA (methicillin resistant Staphylococcus aureus) (Resolved 07/09/14). Lichen simplex chronicus (Resolved 07/16/14). History of intravenous drug use in remission (Resolved 07/09/14). History of endocarditis (Resolved 07/09/14). GERD (gastroesophageal reflux disease) (Chronic 07/09/14). Depression (Chronic 08/23/16). Congenital connective tissue disorder (Chronic). Cirrhosis of liver without ascites (Chronic 11/27/16). Chronic pain syndrome (Chronic 10/03/16). Chronic nausea (Chronic 07/09/14). Cervical spondylosis (Chronic 07/09/14). COPD (chronic obstructive pulmonary disease) (Chronic 08/23/16). Attention deficit disorder (ADD) in adult (Chronic). Alcohol abuse (Resolved 07/09/14). Adjustment disorder with mixed anxiety and depressed mood (Chronic 08/27/17). Acute allergic rhinitis due to pollen (Chronic 05/29/17). Polysubstance dependence including opioid type drug with complication, continuous use (Resolved). Chronic osteomyelitis of right shoulder region (Chronic). Endometriosis (Resolved). Colonoscopy - MAC (Resolved). Debridement, Bone (Resolved). Abdominal hysterectomy (Resolved 05/05/03). Diagnostic Laproscopy (Resolved). EGD - MAC (Resolved ~2001) PREVIOUS FUNCTIONAL STATUS/SOCIAL/FAMILY SUPPORTS:: Joe resides with a friend locally. She is independent at baseline, and states that she sees a therapist in the community. CURRENT FUNCTIONAL STATUS:: Currently Joe is lying in bed. She is tearful at times throughout discussion. Joe states that she would like to make a phone call to her daughter, which CM has provided a phone for. ADVANCE DIRECTIVES:: None on file Has patient been provided with information about the portal?: Yes Did the patient sign up for the portal?: No (already signed up) CODE STATUS:: Full Code INSURANCE COVERAGE / FINANCIAL ISSUES:: Medicaid CURRENT HOME/COMMUNITY SERVICES/EQUIPMENT:: Currently Joe has a counselor in the community. she has no medical equipment at home. PRIMARY CARE PHYSICIAN:: Sujata Werner POTENTIAL DISCHARGE NEEDS:: Psychiatric facility placement PATIENT/FAMILY EDUCATION NEEDS:: Review DC instructions, any limitations, and ongoing DC planning discussion. Discuss 'Ask Me Three' ANTICIPATED BARRIERS TO DISCHARGE:: None identified at this time. TRANSPORTATION:: Via [employer] PLAN:: Joe to be placed at a psychiatric facility. Transportation to be via [employer] which CM will assist to facilitate.
--- NOTE | 2018-09-26 11:03 | DI.RAD_ITS ---
SYMPTOMS/DIAGNOSIS: LEUKOCYTOSIS PORTABLE AP CHEST: Note is made of proximal humeral deformity on the right as noted on previous examinations. The heart is not enlarged. The lungs are clear with changes of COPD and scarring. CONCLUSION: No evidence of acute disease.
[2018-09-26] MEDS: Normal Saline 1,000 ML 1000 ML IV (12:07)
[2018-09-26 12:22] LABS: Abs Immature Grans 0.01 k/cumm (0.0-0.09); Absolute Basophil Count 0.02 k/cumm (0.0-0.2); Absolute Eosinophil Count 0.01 k/cumm (0.0-0.7); Absolute Lymphocyte Count 1.93 k/cumm (1.2-3.4); Absolute Monocyte Count 0.39 k/cumm (0.11-0.7); Basophils % 0.3; Eosinophils % 0.2; HGB 12.7 g/dL (12.0-15.5); Immature Grans % 0.2; Lymphocytes % 29.3; Mean Corp. HGB Concentration 33.4 g/dL (32.0-36.0); Mean Corpuscular Hemoglobin 30.7 pg (27.0-33.0); Mean Corpuscular Volume 91.8 fL (80-95); Mean Platelet Volume 9.8 fL (8.0-11.0); Monocytes % 5.9; Neutrophils % 64.1; Platelet Count 137 x1000/uL (130-400); RBC 4.14 m/cumm (4.00-5.20); White Blood Cell Count 6.59 k/cumm (4.4-10.8)
[2018-09-26 12:29] VITALS: BP 123/81; RESP 18; TEMP 37.1; O2SAT 96
[2018-09-26 12:32] LABS: Absolute Neutrophil Count 4.22 k/cumm (1.2-6.7)
[2018-09-26 12:38] LABS: Anion Gap 6.6 mmol/L (3-11); BUN 26 mg/dL (7-18); CO2 26.4 mmol/L (21.0-32.0); CREATININE 0.81 mg/dL (0.55-1.02); Chloride 107 mmol/L (98-107); Glucose 91 mg/dL (70-100); Magnesium 1.5 mg/dL (1.8-2.4); Potassium 4.1 mmol/L (3.5-5.1); Sodium 140 mmol/L (136-145)
[2018-09-26 13:02] LABS: Bilirubin Negative (Negative); Blood Negative (Negative); Clarity Clear; Glucose Negative (Negative); Ketones Negative (Negative); Leukocyte Esterase Negative (Negative); Nitrite Negative (Negative); Urobilinogen 0.2 EU/dL (Up TO 0.2)
[2018-09-26] MEDS: Magnesium Chloride 64 MG TABCR 128 MG PO (13:18)
[2018-09-26] MEDS: MAGNESIUM SULFATE 2 GM/50 ML BAG IVPB (13:18)
[2018-09-26] MEDS: Acetaminophen 325 MG TAB PO (13:50)
[2018-09-26] MEDS: Ibuprofen 400 MG TAB PO (13:50)
[2018-09-26] MEDS: traMADol 50 MG TAB PO (14:51)
--- NOTE | 2018-09-26 15:00 | PDOC.CMPRO ---
- If Service Date Differs Date of service: 09/26/18 Time of Service: 15:00 Care Management Progress Note VOLUNTARY FOR INPATIENT PSYCHIATRIC STABILIZATION. Joe is cooperative and appropriate in all interactions since arriving at [facility]; she has demonstrated appropriate coping and communication skills, has articulated her needs and concerns and is fully engaged during staff interactions. Patient has been crying throughout the conversation and is very emotional. Safety plan has been established with patient, and care team, to adhere to patient goals, identify restrictions based on behavioral status, address nutrition, and determine allowed personal belongings, tools for hygiene and personal care. Determine level of activity including ambulation, level of supervision, visitors, and determine privileges based on behaviors and level of engagement by pt. SAFETY PLAN: 1. Will remain on suicide precautions. In Paper Clothes 2. Will remain in room under direct supervision of one-on-one staff at all times provided by CPSO, SCRIP CLERK, DIRECTOR OF MEDICAL STAFF SERVICES supervisor natural gas plant. 3. May have paper cups, plates, finger foods as well as a metal spoon with which to eat meals. [facility] staff will be responsible for accounting of utensils after meals. 4. Follow [facility] Management of the Admitted Behavioral Health Patient policy. 5. Comfort bath system, may shower if staff available 6. No personal belongings in room 7. Visitors at the discretion of the provider 8. Phone at the discretion of the provider, and if patient?s behavior is appropriate 8. Activities: Coloring, paper, crayons, television if available. 9. May have music therapy IPAD and cordless headphones at the discretion of the provider 11. Due to VOLUNTARY status, if patient wishes to leave [facility], the [facility] day care worker must be contacted to re-evaluate patient prior to patient exiting the building.
[2018-09-26] MEDS: Normal Saline 1,000 ML 80 ML IV (15:40)
[2018-09-26] MEDS: Lidocaine/Prilocaine Cream 5 GM TUBE (15:46)
[2018-09-26 16:00] VITALS: BP 124/80; PULSE 70; RESP 14; TEMP 36.2; O2SAT 98
[2018-09-26] MEDS: Normal Saline Flush 10 ML SYR IVP (17:14)
[2018-09-26 17:30] VITALS: BP 126/70; PULSE 82; RESP 14; TEMP 36; O2SAT 98
--- NOTE | 2018-09-26 17:30 | PHARADMIT ---
Addendum entered by Owen Parham III 09/30/18 12:12: Pharmacy Note Subjective Hand abscess is resolving, ABX switched to Kelfex 1000mg po tid x 14 days. Observed seizure overnight. Objective VS-OK Pain:05/14 ANC- 0.44 WBC- 2.11 Lytes, SCr, H&H,-OK still no BM Assessment Hand cellulits resolving Plan MD Concerned regarding ANC Original Note: Addendum entered by Kandi Corado 09/28/18 11:15: Pharmacy Note Subjective Some discussion about her wanting to leave AMA yesterday Objective BP ok, HR>100 at times, Afebrile, pain 05/14, weight up 3.5kg since admission, I/O ++ Lytes in range Micro right hand drainage: scant/gram positive Vanco trough high 27.3 Assessment IVF's dc'd Buspar dc'd, Hydroxyzine changed to scheduled for anxiety Held Vanco dose total of 12 hours, rescheduled for 750mg IV Q12h Zosyn continues Adderall XR changed from BID to TID with special times (odd dosing) Flexeril added prn for chronic back pain-not rec'd any doses Lovenox for DVT prophylaxis Pain meds: APAP, Flexeril, Ibuprofen, MS IVP, Lyrica No BM recorded, pt voiding independently Plan watch for Micro sensitivity, follow Vanco, Hx of MRSA, may be able to narrow Anbx coverage Original Note: Admission Pharmacy Clinical Review Code Status Full Code Current Weight 45.359 kg Renally Cleared and Narrow Therapeutic Index Meds CRCL ~69 QTc Value / Action Taken 435 BP Control, Fever 123/81 afebrile Electrolytes reviewed K 4.1 (up from 2.8); Mag 1.5 DVT Prophylaxis none Opiate Usage / Scheduled Bowel Regimen Ordered Tramadol prn and Morphine IVP PRN; docusate and miralax Plt/SCr for Heparin / Enoxaparin 137/0.81 INR for Warfarin n/a H/H stable, WBC/Bands 38.0/12.7 Antibiotic appropriateness Zosyn and Vanco (right hand abcess) Cultures and Sensitivities Pending Surgical ABX d/c within 24 hr n/a DM control / Insulin Dosing n/a Heart Failure (Check EF%) (SHERIN's, B-Block, Diuretics) furosemide 40mg daily (home med) sprinolactone 25mg daily (home med) IV to PO Switch no Home Meds Reviewed yes Home Meds Not Ordered promethazine 25 MG tablet 25 mg PO TID PRNQty: 90 RF: 11 spironolactone 25 MG tablet 25 mg PO DAILY Qty: 90 RF: 3 nabumetone 500 MG tablet 500 mg PO DAILY Qty: 90 RF: 3 cholecalciferol (vitamin D3) 1,000 UNIT tablet 1,000 unit PO DAILY Qty: 90 RF: 3 cetirizine 10 MG tablet 10 mg PO BID Qty: 180 RF: 3 Lyrica 100 MG capsule 100 mg PO BID Qty: 56 RF: 5 furosemide 40 MG tablet 40 mg PO DAILY Qty: 90 RF: 1 ProAir HFA 8.5 GM HFA aerosol inhaler 2 puff Inhalation Q4H PRN Qty: 5 RF: 0 Flovent HFA 12 GM HFA aerosol inhaler 110 mcg Inhalation prn bid Qty: 5 RF: 0 Multi 1 EACH tablet 1 ea PO DAILY Qty: 90 RF: 1 Boost 237 ML liquid 237 ml PO AC & HS PRNQty: 120 RF: 3 lorazepam 2 MG tablet 10 mg PO BID RF: 0 methadone [Dolophine] 10 MG tablet 40 mg PO DAILY RF: 0 calcium carbonate 600 mg calcium (1,500 mg) Tablet 600 mg PO BID RF: 0 diclofenac potassium 50 mg Tablet 1 tab PO BID RF: 0 Comments Waiting for a bed at [facility]; IV abx started due to right hand abcess
[2018-09-26] MEDS: PIPERACILLIN/TAZO 3.375 GM in Normal Saline 50 ML IVPB ×2 (19:04→23:38)
--- NOTE | 2018-09-26 21:23 | PGE_ITS ---
Date of Service Date of service: 09/26/18 Time of Service: 14:30 Assessment and Plan (1) Cellulitis and abscess of hand: Current visit: Yes Status: Acute now s/p I&D by Dr Merlos. The patient has a history of MRSA - will cover with vancomycin/zosyn. Await wound culture. (2) Frostbite of both hands: Current visit: Yes Status: Acute with secondary cellulitis. As above (3) Depression: Current visit: Yes Status: Chronic with suicidal ideation ( she would either slit her wrists or take an overdose). Discharge to a psychiatric facility once cellulitis improves/resolves. (4) Bipolar disorder: Current visit: Yes Status: Chronic Not currently actively treating bipolar disorder. It is not clear that she has had active follow-up with an ROSA Quesada. She says she sees Nadiya Tyler in [facility] for psychiatric treatment. (5) Tobacco dependence syndrome: Current visit: Yes Status: Chronic Nicotrol inhaler (6) Hepatitis C: Current visit: Yes Status: Chronic No evidence of jaundice or hepatosplenomegaly. No evidence of chronic liver disease at this time. Per CT of the abdomen in 12/2016, she has hepatic steatosis, but no cirrhosis. (7) Psychogenic nonepileptic seizure: Current visit: Yes Status: Chronic Continue Klonopin 1 mg twice daily. (8) Attention deficit disorder (ADD) in adult: Current visit: Yes Status: Chronic Continue Adderall XR 20 mg twice daily (9) History of intravenous drug use in remission: Current visit: Yes Status: Resolved She denies any recent IV drug use. Her urine drug screen does not show evidence of intravenous drug abuse. (10) On stimulant medication: Current visit: Yes Status: Chronic Chronically on Adderall for ADHD (11) Discharge planning issues: Current visit: Yes Status: Acute Full code Awaiting medical clearance prior to transfer to a psychiatric facility (12) DVT prophylaxis: Current visit: Yes Status: Acute Lovenox SC Subjective Interval history since last seen: Ms Peña complains of uncontrolled pain in her hands/fingers, especially her R hand. There is a fluid collection that is now visible on her R hand that wasn't there before, and fingers look more red. She is very anxious, agitated, screaming and tearful, and I am unable to get her to focus on anything I am asking. Exam Narrative Exam Narrative: General: A&Ox3, very agitated HEENT: EOMI, MMM Heart: RRR, tachycardic Lungs: CTAB GI: abdomen is soft, nontender, nondistended Extremeties: B hands with sausage like fingers, which do look erythematous. R hand with an abscess on dorsal surface, about 2 cm in diameter, extremely TTP; tips of multiple fingers appear necrosed. Objective Objective Clinical Data: Abnormal lab results 09/26/18 Range/Units 12:00 BUN 26 H D (7-18) mg/dL Calcium 8.0 L (8.5-10.1) mg/dL Magnesium 1.5 L (1.8-2.4) mg/dL Vital Signs Temperature 37.1 C 09/26/18 12:29 Temperature Source Tympanic 09/26/18 08:22 Pulse 109 H 09/26/18 08:22 Pulse Rhythm Regular 09/26/18 16:00 Pulse 104 H 09/25/18 16:31 Respiratory Rate 18 09/26/18 12:29 Respiratory Effort Non-Labored 09/26/18 16:00 Respiratory Depth Normal 09/26/18 16:00 Respiratory Pattern Normal 09/26/18 16:00 Blood Pressure 123/81 09/26/18 12:29 Blood Pressure Mean 73 09/25/18 16:31 Pulse Oximetry 98 09/26/18 16:00 Oxygen Delivery Method Room Air 09/26/18 16:00 Oxygen Flow Rate 0 09/26/18 16:00 Pain Level 10 09/26/18 12:29 Intake & Output 09/25/18 09/26/18 09/26/18 23:59 11:59 23:59 Intake Total 3120 / 3120 0 / 660 660 / 660 Balance 3120 / 3120 0 / 660 660 / 660 Weight 45.359 kg Intake: IV 3000 / 3000 Oral 120 / 120 0 / 660 660 / 660 Other: Urine Color Yellow Yellow Urine Appearance Clear Clear Clear Urine Odor None None Voiding Methods Toilet Toilet Laboratory Results WBC 6.59 k/cumm (4.4-10.8) D 09/26/18 12:00 RBC 4.14 m/cumm (4.00-5.20) 09/26/18 12:00 Hgb 12.7 g/dL (12.0-15.5) D 09/26/18 12:00 Hct 38.0 % (36.0-46.0) 09/26/18 12:00 MCV 91.8 fL (80-95) D 09/26/18 12:00 MCH 30.7 pg (27.0-33.0) 09/26/18 12:00 MCHC 33.4 g/dL (32.0-36.0) 09/26/18 12:00 RDW 14.0 % (11.7-14.6) 09/26/18 12:00 Plt Count 137 x1000/uL (130-400) 09/26/18 12:00 MPV 9.8 fL (8.0-11.0) 09/26/18 12:00 Immature Gran % 0.2 09/26/18 12:00 Neutrophils % 64.1 09/26/18 12:00 Lymphocytes % 29.3 09/26/18 12:00 Atypical Lymphs % 5 09/25/18 12:50 Monocytes % 5.9 09/26/18 12:00 Eosinophils % 0.2 09/26/18 12:00 Basophils % 0.3 09/26/18 12:00 Absolute Neutrophils 4.22 k/cumm (1.2-6.7) 09/26/18 12:00 Absolute Lymphocytes 1.93 k/cumm (1.2-3.4) 09/26/18 12:00 Absolute Monocytes 0.39 k/cumm (0.11-0.7) 09/26/18 12:00 Absolute Eosinophils 0.01 k/cumm (0.0-0.7) 09/26/18 12:00 Absolute Basophils 0.02 k/cumm (0.0-0.2) 09/26/18 12:00 Differential Comment Manual differential 09/25/18 12:50 RBC Morphology Normal 09/25/18 12:50 Sodium 140 mmol/L (136-145) 09/26/18 12:00 Potassium 4.1 mmol/L (3.5-5.1) D 09/26/18 12:00 Chloride 107 mmol/L (98-107) 09/26/18 12:00 Carbon Dioxide 26.4 mmol/L (21.0-32.0) 09/26/18 12:00 Anion Gap 6.6 mmol/L (3-11) 09/26/18 12:00 BUN 26 mg/dL (7-18) H D 09/26/18 12:00 Creatinine 0.81 mg/dL (0.55-1.02) 09/26/18 12:00 Estimated GFR/1.73 m2 >= 60.00 (mL/min/1.73m2) 09/26/18 12:00 Glucose 91 mg/dL (70-100) 09/26/18 12:00 Calcium 8.0 mg/dL (8.5-10.1) L 09/26/18 12:00 Magnesium 1.5 mg/dL (1.8-2.4) L 09/26/18 12:00 Total Bilirubin 0.3 mg/dL (0.2-1.0) 09/25/18 15:19 AST 14 U/L (15-37) L 09/25/18 15:19 ALT 19 U/L (12-78) 09/25/18 15:19 Alkaline Phosphatase 40 U/L (46-116) L 09/25/18 15:19 Total Protein 6.0 g/dL (6.4-8.2) L 09/25/18 15:19 Albumin 2.4 g/dL (3.4-5.0) L 09/25/18 15:19 TSH 1.39 uIU/mL (0.358-3.74) 09/25/18 12:50 Urine Color Yellow (Yellow) 09/26/18 12:50 Urine Clarity Clear 09/26/18 12:50 Urine pH 7.0 (5-8) 09/26/18 12:50 Ur Specific [place] 1.020 (1.005-1.025) 09/26/18 12:50 Urine Protein Negative mg/dL (Negative) 09/26/18 12:50 Urine Ketones Negative mg/dL (Negative) 09/26/18 12:50 Urine Blood Negative (Negative) 09/26/18 12:50 Urine Nitrite Negative (Negative) 09/26/18 12:50 Urine Bilirubin Negative (Negative) 09/26/18 12:50 Urine Urobilinogen 0.2 EU/dL (Up TO 0.2) 09/26/18 12:50 Ur Leukocyte Esterase Negative (Negative) 09/26/18 12:50 Urine Glucose Negative mg/dL (Negative) 09/26/18 12:50 Salicylates 4.4 mg/dL (2.8-20.0) 09/25/18 12:50 Urine Opiates Screen Negative (Negative) 09/25/18 12:00 Urine Methadone Screen Negative (Negative) 09/25/18 12:00 Acetaminophen < 2 ug/mL (10-30) L 09/25/18 12:50 Ur Barbiturates Screen Negative (Negative) 09/25/18 12:00 Ur Tricyclics Screen Positive (Negative) 09/25/18 12:00 Ur Amphetamines Screen Negative (Negative) 09/25/18 12:00 U Benzodiazepines Scrn Negative (Negative) 09/25/18 12:00 Urine Cocaine Screen Negative (Negative) 09/25/18 12:00 Ur THC Screen Positive (Negative) 09/25/18 12:00 Ethyl Alcohol < 3.0 mg/dL (<3) 09/25/18 12:50
[2018-09-26] MEDS: Enoxaparin 40 MG/0.4 ML SYR SC (22:47)
[2018-09-27 00:28] VITALS: BP 121/78; PULSE 71; RESP 18; TEMP 37.4; O2SAT 93
[2018-09-27] MEDS: VANCOMYCIN 750 MG in Normal Saline 250 ML 167 MG IVPB ×2 (01:40→18:44)
[2018-09-27] MEDS: Ibuprofen 400 MG TAB PO ×2 (05:33→20:38)
[2018-09-27] MEDS: PIPERACILLIN/TAZO 3.375 GM in Normal Saline 50 ML IVPB ×4 (05:33→23:35)
[2018-09-27 07:52] LABS: HCT 37.1 % (36.0-46.0); HGB 12.2 g/dL (12.0-15.5); Mean Corp. HGB Concentration 32.9 g/dL (32.0-36.0); Mean Corpuscular Hemoglobin 30.3 pg (27.0-33.0); Mean Corpuscular Volume 92.1 fL (80-95); Mean Platelet Volume 10.4 fL (8.0-11.0); Platelet Count 125 x1000/uL (130-400); RBC 4.03 m/cumm (4.00-5.20); RBC Distribution Width 14.1 % (11.7-14.6); White Blood Cell Count 4.27 k/cumm (4.4-10.8)
[2018-09-27 08:09] LABS: Anion Gap 8.5 mmol/L (3-11); BUN 19 mg/dL (7-18); CO2 26.5 mmol/L (21.0-32.0); CREATININE 0.79 mg/dL (0.55-1.02); Calcium 8.6 mg/dL (8.5-10.1); Chloride 106 mmol/L (98-107); Glucose 84 mg/dL (70-100); Potassium 4.6 mmol/L (3.5-5.1); Sodium 141 mmol/L (136-145)
[2018-09-27] MEDS: Lansoprazole 30 MG CAPCR PO (08:20)
[2018-09-27] MEDS: clonazePAM 1 MG TAB PO ×2 (08:20→20:37)
[2018-09-27] MEDS: Pregabalin 100 MG CAP PO ×2 (08:20→20:37)
[2018-09-27] MEDS: Magnesium Chloride 64 MG TABCR PO (08:20)
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
[2018-09-27 08:51] VITALS: BP 131/78; PULSE 97; RESP 18; TEMP 36.6; O2SAT 99
--- NOTE | 2018-09-27 09:44 | PDOC.CMPRO ---
- If Service Date Differs Date of service: 09/27/18 Time of Service: 09:44 Care Management Progress Note S/O: Joe states she is not feeling suicidal at this time and she has no intentions of harming herself. She states she was sad about her daughters situation and was tearful. She states she wants to move in with her daughter in [place], [place] and has been looking for an apartment in that area. Joe did meet with mental health (please see [facility] note). Joe will be taken of suicidal precautions at this time per mental health and provider. Joe is active in the room. She walks in the room frequently she is asking to wear her own clothing. Joe has a large amount of her belongings here. Nursing is coordinating washing of her clothes with laundry services. Joe is currently homeless she does not have her own apartment and has recently from her fiance. She has been working with [employer] on aging toward her housing goals. CM did review options including the [facility] as a resource. Joe will remain on IV antibiotics over the weekend. She was started on Xanax for symptoms of anxiety and will be monitored closely. Joe will need a new consult for mental health if needed. Joe will be referred to [facility] upon discharge for services for outpatient treatment. A: Joe is a 53 year old female with a significant history of Bipolar, depression, previous suicide attempts and multiple psychiatric admissions.Joe was admitted with SI which has since stabilized. She is now currently inpatient for cellulitis and abscess of right hand r/t recent frostbite. P: Joe will be discharged home vs [facility] when medically ready. She is currently being treated for right hand cellulitis and will remain inpatient over the weekend. Joe will transport via [facility] upon discharge.
[2018-09-27 09:50] VITALS: O2SAT 98
[2018-09-27] MEDS: Mometasone 220 MCG 14 DOSE INHALER 2 PUFF IH (09:50)
--- NOTE | 2018-09-27 09:50 | CMPROGNOTE_ITS ---
- If Service Date Differs Date of service: 09/27/18 Time of Service: 09:44 Care Management Progress Note S/O: Joe states she is not feeling suicidal at this time and she has no intentions of harming herself. She states she was sad about her daughters situation and was tearful. She states she wants to move in with her daughter in [place], [place] and has been looking for an apartment in that area. Joe did meet with mental health (please see [facility] note). Joe will be taken of suicidal precautions at this time per mental health and provider. Joe is active in the room. She walks in the room frequently she is asking to wear her own clothing. Joe has a large amount of her belongings here. Nursing is coordinating washing of her clothes with laundry services. Joe is currently homeless she does not have her own apartment and has recently from her fiance. She has been working with [employer] on aging toward her housing goals. CM did review options including the [facility] as a resource. Jeo will remain on IV antibiotics over the weekend. She was started on Xanax for symptoms of anxiety and will be monitored closely. Joe will need a new consult for mental health if needed. Joe will be referred to [facility] upon discharge for services for outpatient treatment. A: Joe is a 53 year old female with a significant history of Bipolar, depression, previous suicide attempts and multiple psychiatric admissions.Joe was admitted with SI which has since stabilized. She is now currently inpatient for cellulitis and abscess of right hand r/t recent frostbite. P: Joe will be discharged home vs [facility] when medically ready. She is currently being treated for right hand cellulitis and will remain inpatient over the weekend. Joe will transport via [facility] upon discharge.
[2018-09-27 11:04] LABS: Magnesium 2.1 mg/dL (1.8-2.4)
[2018-09-27] MEDS: VANCOMYCIN 750 MG in Normal Saline 250 ML 166 MG IVPB (11:35)
--- NOTE | 2018-09-27 12:44 | W.PM.PROGNOT ---
Date of Service Date of service: 09/27/18 Time of Service: 12:45 Assessment and Plan (1) Cellulitis and abscess of hand: Current visit: Yes Status: Acute s/p I&D by Dr Merlos. has a history of MRSA - will cover with vancomycin/zosyn. wound culture pending (2) Frostbite of both hands: Current visit: Yes Status: Acute cellulitis secondary to frostbite. As above (3) Depression: Current visit: Yes Status: Chronic Denying SI and HI today, no intent on harming herself. She wants to go home and get outpatient help (4) Bipolar disorder: Current visit: Yes Status: Chronic Not currently taking medication for bipolar. having manic phases. Xanax 0.25 mg BID prn for anxiety. (5) Psychogenic nonepileptic seizure: Current visit: Yes Status: Chronic Continue Klonopin 1 mg twice daily. (6) Attention deficit disorder (ADD) in adult: Current visit: Yes Status: Chronic Continue Adderall XR 20 mg twice daily (7) On stimulant medication: Current visit: Yes Status: Chronic Chronically on Adderall for ADHD (8) Discharge planning issues: Current visit: Yes Status: Acute Full code Awaiting medical clearance prior to transfer to a psychiatric facility (9) DVT prophylaxis: Current visit: Yes Status: Acute Lovenox SC (10) Anxious mood: Start date: 09/27/18 Start time: 13:34 Current visit: Yes Status: Chronic currently hyperfocused, anxious, talking about multiple topics and concerned about finding a house. xanax 0.25mg po bid prn has been ordered for anxiety. Subjective Interval history since last seen: Ms Peña is having hyperfocused ideas today. Not really able to concentrate on one topic. Continues to talk about a court case and looking for apartments with her daughter. She appears anxious. She is asking for flexeril for her neck and back she does endorse taking it TID. It has been ordered 10 mg TID prn. She does feel her hand is getting better and she is having less pain. Her hand does appear less swollen as she was comparing it today to pictures she had on her phone from a couple days ago. It is not as erythemic as well. She is currently on vancomycin 1 gm while awaiting cultures. She has a hx or MRSA infections. Today she is not suicidal or homicidal. Exam Const General: cooperative, comfortable, no acute distress and disheveled Nutritional Appearance: thin Orientation: alert, awake and oriented x3 HENMT Head: normal to inspection Teeth and gingiva: poor dentition (No upper teeth, only front teeth in the lower) Eyes General: appearance normal, both eyes and all related structures Neck Neck: normal visual inspection Thyroid: symmetrical Lymphatic: no lymphadenopathy noted Chest Chest: normal inspection of the chest Resp Effort & Inspection: normal respiratory effort Auscultation: clear to auscultation bilaterally Cardio Jugular venous pressure: no JVD Rate: regular rate Rhythm: regular rhythm Heart Sounds: S1 normal and S2 normal GI Inspection: normal to inspection Palpation: soft, no hepatosplenomegaly and nontender Back/Spine/Pelvis Back: no CVA tenderness Cervical Spine: normal cervical lordosis Thoracic/Lumbar Spine: thoracic and lumbar spine normal to inspection Skin General skin exam: no rashes or lesions noted Neuro General: alert, awake, oriented x3, moves all extremities and no focal motor deficits Cranial Nerves: CN's II-XI intact bilaterally Speech: speech normal Extrem General: normal to inspection Right upper extremity: hand (erythematous, swollen s/p I&D) Psych Appearance: disheveled Mental Status: other Speech and Movement: speech and movement normal and agitated Mood: congruent mood, anxious mood, dysthymic mood, manic mood and other Affect: normal affect, labile affect, animated and anxious affect Attitude: cooperative Thought Process: normal and circumstantial Thought Content: normal Insight: insight good and limited Objective Objective Clinical Data: Abnormal lab results 09/27/18 09/27/18 Range/Units 06:45 06:45 WBC 4.27 L D (4.4-10.8) k/cumm Plt Count 125 L (130-400) x1000/uL BUN 19 H D (7-18) mg/dL Vital Signs Temperature 37.4 C 09/27/18 00:28 Temperature Source Tympanic 09/27/18 00:28 Pulse 71 09/27/18 00:28 Pulse Rhythm Regular 09/26/18 23:27 Pulse 104 H 09/25/18 16:31 Respiratory Rate 18 09/27/18 00:28 Respiratory Effort Non-Labored 09/26/18 23:27 Respiratory Depth Normal 02/22/19 23:27 Respiratory Pattern Normal 09/26/18 23:27 Blood Pressure 121/78 09/27/18 00:28 Blood Pressure Mean 73 09/25/18 16:31 Pulse Oximetry 93 L 09/27/18 00:28 Oxygen Delivery Method Room Air 09/27/18 00:28 Oxygen Flow Rate 0 09/27/18 00:28 Pain Level 9 09/27/18 08:20 Intake & Output 09/26/18 09/27/18 09/27/18 23:59 11:59 23:59 Intake Total 2547.333 / 2547.333 1387.333 / 1387.333 Balance 2547.333 / 2547.333 1387.333 / 1387.333 Weight 48.9 kg Intake: IV 1887.333 / 1887.333 647.333 / 647.333 Oral 660 / 660 740 / 740 Other: Urine Color Yellow Yellow Urine Appearance Clear Clear Urine Odor None Normal Voiding Methods Toilet Toilet Laboratory Results WBC 4.27 k/cumm (4.4-10.8) L D 09/27/18 06:45 RBC 4.03 m/cumm (4.00-5.20) 09/27/18 06:45 Hgb 12.2 g/dL (12.0-15.5) 09/27/18 06:45 Hct 37.1 % (36.0-46.0) 09/27/18 06:45 MCV 92.1 fL (80-95) 09/27/18 06:45 MCH 30.3 pg (27.0-33.0) 09/27/18 06:45 MCHC 32.9 g/dL (32.0-36.0) 09/27/18 06:45 RDW 14.1 % (11.7-14.6) 09/27/18 06:45 Plt Count 125 x1000/uL (130-400) L 09/27/18 06:45 MPV 10.4 fL (8.0-11.0) 09/27/18 06:45 Immature Gran % 0.2 09/26/18 12:00 Neutrophils % 64.1 09/26/18 12:00 Lymphocytes % 29.3 09/26/18 12:00 Atypical Lymphs % 5 09/25/18 12:50 Monocytes % 5.9 09/26/18 12:00 Eosinophils % 0.2 09/26/18 12:00 Basophils % 0.3 09/26/18 12:00 Absolute Neutrophils 4.22 k/cumm (1.2-6.7) 09/26/18 12:00 Absolute Lymphocytes 1.93 k/cumm (1.2-3.4) 09/26/18 12:00 Absolute Monocytes 0.39 k/cumm (0.11-0.7) 09/26/18 12:00 Absolute Eosinophils 0.01 k/cumm (0.0-0.7) 09/26/18 12:00 Absolute Basophils 0.02 k/cumm (0.0-0.2) 09/26/18 12:00 Differential Comment Manual differential 09/25/18 12:50 RBC Morphology Normal 09/25/18 12:50 Sodium 141 mmol/L (136-145) 09/27/18 06:45 Potassium 4.6 mmol/L (3.5-5.1) 09/27/18 06:45 Chloride 106 mmol/L (98-107) 09/27/18 06:45 Carbon Dioxide 26.5 mmol/L (21.0-32.0) 09/27/18 06:45 Anion Gap 8.5 mmol/L (3-11) 09/27/18 06:45 BUN 19 mg/dL (7-18) H D 09/27/18 06:45 Creatinine 0.79 mg/dL (0.55-1.02) 09/27/18 06:45 Estimated GFR/1.73 m2 >= 60.00 (mL/min/1.73m2) 09/27/18 06:45 Glucose 84 mg/dL (70-100) 09/27/18 06:45 Calcium 8.6 mg/dL (8.5-10.1) 09/27/18 06:45 Magnesium 2.1 mg/dL (1.8-2.4) 09/27/18 06:15 Total Bilirubin 0.3 mg/dL (0.2-1.0) 09/25/18 15:19 AST 14 U/L (15-37) L 09/25/18 15:19 ALT 19 U/L (12-78) 09/25/18 15:19 Alkaline Phosphatase 40 U/L (46-116) L 09/25/18 15:19 Total Protein 6.0 g/dL (6.4-8.2) L 09/25/18 15:19 Albumin 2.4 g/dL (3.4-5.0) L 09/25/18 15:19 TSH 1.39 uIU/mL (0.358-3.74) 09/25/18 12:50 Urine Color Yellow (Yellow) 09/26/18 12:50 Urine Clarity Clear 09/26/18 12:50 Urine pH 7.0 (5-8) 09/26/18 12:50 Ur Specific [place] 1.020 (1.005-1.025) 09/26/18 12:50 Urine Protein Negative mg/dL (Negative) 09/26/18 12:50 Urine Ketones Negative mg/dL (Negative) 09/26/18 12:50 Urine Blood Negative (Negative) 09/26/18 12:50 Urine Nitrite Negative (Negative) 09/26/18 12:50 Urine Bilirubin Negative (Negative) 09/26/18 12:50 Urine Urobilinogen 0.2 EU/dL (Up TO 0.2) 09/26/18 12:50 Ur Leukocyte Esterase Negative (Negative) 09/26/18 12:50 Urine Glucose Negative mg/dL (Negative) 09/26/18 12:50 Salicylates 4.4 mg/dL (2.8-20.0) 09/25/18 12:50 Urine Opiates Screen Negative (Negative) 09/25/18 12:00 Urine Methadone Screen Negative (Negative) 09/25/18 12:00 Acetaminophen < 2 ug/mL (10-30) L 09/25/18 12:50 Ur Barbiturates Screen Negative (Negative) 09/25/18 12:00 Ur Tricyclics Screen Positive (Negative) 09/25/18 12:00 Ur Amphetamines Screen Negative (Negative) 09/25/18 12:00 U Benzodiazepines Scrn Negative (Negative) 09/25/18 12:00 Urine Cocaine Screen Negative (Negative) 09/25/18 12:00 Ur THC Screen Positive (Negative) 09/25/18 12:00 Ethyl Alcohol < 3.0 mg/dL (<3) 09/25/18 12:50
--- NOTE | 2018-09-27 12:44 | PDOC.MHPN2 ---
Date of service: 09/27/18 Time of Service: 12:45 Mental Health Progress Note Progress Note: Presenting Issue: Joe first came to [facility] on 09/25/18 at her psychiatric provider's recommendation due to suicidal ideation with intent and plan. Precipitating Factors Joe was feeling overwhelmed by pain and concerns that she will end up in a wheelchair. She also was frustrated with the housing agency assisting her in finding an apartment. Today when I meet with Joe, she greets me with I'm not going to do anything stupid. She denies current suicidal ideation and states that she is feeling better, though continues to be extremely anxious. Disposition * Behavior: Cooperative. *Eye Contact: Good. *Mood: Anxious. *Affect: Congruent to mood. *Appetite: Poor. *Sleep(trouble falling/staying asleep): Poor. Plan(please elaborate and include that physician is consulted with plan and/or placement): Joe is currently denying suicidal ideation. She therefore will be removed from suicide precautions at [facility]. As long as her mood continues to be improved and she continues to deny SI, Joe no longer meets criteria for psych hospitalization. She, however, will remain at [facility] for a few additional days as she is not medically stable due to an infection. Clinician's Name , Title, and Signature Make sure that you are photocopying and submitting this to [facility] records Dept. to be scanned into chart.
--- NOTE | 2018-09-27 13:06 | MHPN_ITS ---
Date of service: 09/27/18 Time of Service: 12:45 Mental Health Progress Note Progress Note: Presenting Issue: Joe first came to [facility] on 09/25/18 at her psychiatric provider's recommendation due to suicidal ideation with intent and plan. Precipitating Factors Joe was feeling overwhelmed by pain and concerns that she will end up in a wheelchair. She also was frustrated with the housing agency assisting her in finding an apartment. Today when I meet with Joe, she greets me with I'm not going to do anything stupid. She denies current suicidal ideation and states that she is feeling better, though continues to be extremely anxious. Disposition * Behavior: Cooperative. *Eye Contact: Good. *Mood: Anxious. *Affect: Congruent to mood. *Appetite: Poor. *Sleep(trouble falling/staying asleep): Poor. Plan(please elaborate and include that physician is consulted with plan and/or placement): Joe is currently denying suicidal ideation. She therefore will be removed from suicide precautions at [facility]. As long as her mood continues to be improved and she continues to deny SI, Joe no longer meets criteria for psych hospitalization. She, however, will remain at [facility] for a few additional days as she is not medically stable due to an infection. Clinician's Name , Title, and Signature Make sure that you are photocopying and submitting this to [facility] records Dept. to be scanned into chart.
[2018-09-27] MEDS: ALPRAZolam 0.25 MG TAB PO (14:31)
[2018-09-27] MEDS: MAGNESIUM SULFATE 2 GM/50 ML BAG IVPB (15:05)
[2018-09-27] MEDS: Normal Saline 1,000 ML 80 ML IV (15:44)
[2018-09-27 15:52] VITALS: BP 117/79; PULSE 86; RESP 18; TEMP 37.1; O2SAT 96
[2018-09-27] MEDS: Normal Saline Flush 10 ML SYR IVP (16:22)
[2018-09-27] MEDS: Oxymetazolone 0.05% SPRAY 15 ML BTL NS (19:35)
[2018-09-27] MEDS: Acetaminophen 325 MG TAB PO (20:37)
[2018-09-27] MEDS: busPIRone 5 MG TAB PO (20:38)
[2018-09-28] MEDS: VANCOMYCIN 750 MG in Normal Saline 250 ML 167 MG IVPB (01:14)
[2018-09-28] MEDS: PIPERACILLIN/TAZO 3.375 GM in Normal Saline 50 ML IVPB ×2 (05:34→11:46)
[2018-09-28 07:30] LABS: Abs Immature Grans 0.01 k/cumm (0.0-0.09); Absolute Basophil Count 0.02 k/cumm (0.0-0.2); Absolute Eosinophil Count 0.06 k/cumm (0.0-0.7); Absolute Lymphocyte Count 1.09 k/cumm (1.2-3.4); Absolute Monocyte Count 0.17 k/cumm (0.11-0.7); Absolute Neutrophil Count 1.22 k/cumm (1.2-6.7); Basophils % 0.8; Eosinophils % 2.3; HCT 36.6 % (36.0-46.0); HGB 12.3 g/dL (12.0-15.5); Immature Grans % 0.4; Lymphocytes % 42.4; Mean Corp. HGB Concentration 33.6 g/dL (32.0-36.0); Mean Corpuscular Hemoglobin 31.1 pg (27.0-33.0); Mean Corpuscular Volume 92.7 fL (80-95); Mean Platelet Volume 10.5 fL (8.0-11.0); Monocytes % 6.6; Neutrophils % 47.5; Platelet Count 109 x1000/uL (130-400); RBC 3.95 m/cumm (4.00-5.20); White Blood Cell Count 2.57 k/cumm (4.4-10.8)
[2018-09-28 07:38] LABS: Anion Gap 5.3 mmol/L (3-11); BUN 17 mg/dL (7-18); CO2 27.7 mmol/L (21.0-32.0); CREATININE 1.01 mg/dL (0.55-1.02); Calcium 8.3 mg/dL (8.5-10.1); Chloride 108 mmol/L (98-107); Estimated GFR 57.79 (mL/min/1.73m2); Glucose 90 mg/dL (70-100); Magnesium 2.1 mg/dL (1.8-2.4); Potassium 4.7 mmol/L (3.5-5.1); Sodium 141 mmol/L (136-145)
[2018-09-28] MEDS: busPIRone 5 MG TAB PO (07:59)
[2018-09-28] MEDS: Pregabalin 100 MG CAP PO ×2 (07:59→20:59)
[2018-09-28] MEDS: Magnesium Chloride 64 MG TABCR PO (08:00)
[2018-09-28] MEDS: Lansoprazole 30 MG CAPCR PO (08:00)
[2018-09-28] MEDS: clonazePAM 1 MG TAB PO ×2 (08:00→21:00)
[2018-09-28 08:04] VITALS: BP 109/77; PULSE 93; RESP 20; TEMP 36.2; O2SAT 93
[2018-09-28 08:11] LABS: Diff Comment Agrees w/ Instrument
[2018-09-28] MEDS: Acetaminophen 325 MG TAB PO (08:17)
[2018-09-28] MEDS: traMADol 50 MG TAB PO ×2 (08:17→15:17)
[2018-09-28 09:22] VITALS: BP 110/78; PULSE 108; RESP 18; TEMP 37.1
[2018-09-28 09:23] VITALS: BP 110/78; PULSE 108; RESP 18; TEMP 37.1; O2SAT 96
[2018-09-28 09:30] VITALS: O2SAT 98
--- NOTE | 2018-09-28 09:31 | CMPROGNOTE_ITS ---
- If Service Date Differs Date of service: 09/28/18 Time of Service: 09:31 Care Management Progress Note S/O: Joe thoughts are scattered, she is talkative, she is shaky and active in the room. She expresses frustration that new medication was ordered to treat her symptoms of anxiety and she was not aware. She expresses concern that she will no longer be on her clonidine was stopped by her primary care provider and she has been told that Dr. Werner will no longer prescribe it. Joe states that she needs this medication to control her PN ES seizures related to her anxiety. Joe states that she has nowhere to go when she leaves here, and that she is unable to return to her friend Frandy's house. Joe is currently receiving IV antibiotics for right hand cellulitis related to frostbite. She remains acute no change in status today anticipate she will transition to oral a ntibiotics when she is ready for discharge. A: Joe is a 53 year old female with a significant history of Bipolar, depression, previous suicide attempts and multiple psychiatric admissions.Joe was admitted with SI which has since stabilized. She is now currently inpatient for cellulitis and abscess of right hand r/t recent frostbite. P: Joe will be discharged home vs warming longterm when medically ready. She is currently being treated for right hand cellulitis and will remain inpatient over the weekend. CM will fax a referral to chronic healthcare economics manager at [facility], and follow-up with credit counselor on aging related to housing and supports in the community. Joe will transport via [facility] upon discharge.
[2018-09-28 10:17] LABS: Vancomycin, Trough 27.3 ug/mL (10.0-20.0)
--- NOTE | 2018-09-28 11:15 | W.PM.PROGNOT ---
Date of Service Date of service: 09/28/18 Time of Service: 12:01 Assessment and Plan (1) Cellulitis and abscess of hand: Current visit: Yes Status: Acute s/p I&D by Dr Merlos. has a history of MRSA - will cover with vancomycin/zosyn. wound culture pending (2) Frostbite of both hands: Current visit: Yes Status: Acute cellulitis secondary to frostbite. As above (3) Depression: Current visit: Yes Status: Chronic Denying SI and HI today (4) Bipolar disorder: Current visit: Yes Status: Chronic Not currently taking medication for bipolar. having manic phases. Atarax 50 mg BID for anxiety. (5) Psychogenic nonepileptic seizure: Current visit: Yes Status: Chronic Continue Klonopin 1 mg twice daily. (6) Attention deficit disorder (ADD) in adult: Current visit: Yes Status: Chronic Continue Adderall XR 20 mg twice daily (7) On stimulant medication: Current visit: Yes Status: Chronic Chronically on Adderall for ADHD (8) Discharge planning issues: Current visit: Yes Status: Acute will go home or to services on discharge (9) DVT prophylaxis: Current visit: Yes Status: Acute Lovenox SC (10) Anxious mood: Current visit: Yes Status: Chronic currently depressed anxious, she was upset about the buspar which was ordered she has taken it in the past, buspar was dcd and atarax was started 50 mg BID Subjective Interval history since last seen: Ms Peña is having depression today. She will talk in normal sentences followed up bouts of crying. She is denying SI. She is upset about medication and finding a physician today. She was upset that she was placed on buspar she states she has tried this in the past and it has not worked. She was started on atarax 50 mg PO BID. Her fluids have been dcd as she is eating drinking and having no n/v/d. She does endorse a poor diet, ensure has been added to her meal trays. Per nursing she did have an event this am. She was ambulating with a walker and IV pole and fell to her knees. She c/o pain to her left hand but is refusing imaging, She states nothing is broken, I don't need an xray. PT/OT have been consulted to work with her. Exam Const General: cooperative, comfortable and no acute distress Nutritional Appearance: thin Orientation: alert, awake and oriented x3 HENMT Head: normal to inspection Teeth and gingiva: poor dentition (No upper teeth, only front teeth in the lower) Eyes General: appearance normal, both eyes and all related structures Neck Neck: normal visual inspection Thyroid: symmetrical Lymphatic: no lymphadenopathy noted Chest Chest: normal inspection of the chest Resp Effort & Inspection: normal respiratory effort Auscultation: clear to auscultation bilaterally Cardio Jugular venous pressure: no JVD Rate: regular rate Rhythm: regular rhythm Heart Sounds: S1 normal, S2 normal and no murmurs GI Inspection: normal to inspection Palpation: soft, no hepatosplenomegaly and nontender Back/Spine/Pelvis Back: no CVA tenderness Cervical Spine: normal cervical lordosis Thoracic/Lumbar Spine: thoracic and lumbar spine normal to inspection Skin General skin exam: no rashes or lesions noted Wounds: amputation site (Tips of 2 of her 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 exfoliated, crusted over, no infection) Other: wound to first digit healing Neuro General: alert, awake, oriented x3, moves all extremities and no focal motor deficits Extrem General: normal to inspection Right upper extremity: hand (erythematous, swollen s/p I&D) Psych Appearance: disheveled Mental Status: other Speech and Movement: speech and movement normal, agitated and pressured speech Mood: congruent mood, anxious mood, dysthymic mood, manic mood and other Affect: normal affect, labile affect, animated and anxious affect Attitude: cooperative Thought Process: normal and circumstantial Thought Content: normal Insight: insight good and limited Objective Objective Clinical Data: Abnormal lab results 09/28/18 09/28/18 09/28/18 Range/Units 06:35 06:35 09:38 WBC 2.57 L D (4.4-10.8) k/cumm RBC 3.95 L (4.00-5.20) m/cumm Plt Count 109 L (130-400) x1000/uL Absolute Lymphocytes 1.09 L (1.2-3.4) k/cumm Chloride 108 H (98-107) mmol/L Calcium 8.3 L (8.5-10.1) mg/dL Vancomycin Trough 27.3 H* (10.0-20.0) ug/mL Vital Signs Temperature 37.1 C 09/28/18 09:23 Temperature Source Tympanic 09/28/18 09:22 Pulse 108 H 09/28/18 09:23 Pulse Rhythm Regular 09/27/18 19:36 Pulse 104 H 09/25/18 16:31 Respiratory Rate 18 09/28/18 09:23 Respiratory Effort Non-Labored 09/27/18 19:36 Respiratory Depth Normal 09/27/18 19:36 Respiratory Pattern Normal 09/27/18 19:36 Blood Pressure 110/78 09/28/18 09:23 Blood Pressure Mean 73 09/25/18 16:31 Pulse Oximetry 96 09/28/18 09:23 Oxygen Delivery Method Room Air 09/28/18 09:23 Oxygen Flow Rate 0 09/28/18 09:23 Pain Level 10 09/28/18 09:22 Intake & Output 09/27/18 09/27/18 09/28/18 11:59 23:59 11:59 Intake Total 1452.667 / 2519.334 1066.667 / 2519.334 688.000 / 688.000 Balance 1452.667 / 2519.334 1066.667 / 2519.334 688.000 / 688.000 Weight 48.9 kg 48.9 kg Intake: IV 712.667 / 2484.502 1412.667 / 1779.334 688.000 / 688.000 Oral 740 / 740 Other: Urine Color Yellow Yellow Urine Appearance Clear Clear Clear Urine Odor Normal Normal Comment pt voiding independently in the bathroom Voiding Methods Toilet Toilet Toilet Laboratory Results WBC 2.57 k/cumm (4.4-10.8) L D 09/28/18 06:35 RBC 3.95 m/cumm (4.00-5.20) L 09/28/18 06:35 Hgb 12.3 g/dL (12.0-15.5) 09/28/18 06:35 Hct 36.6 % (36.0-46.0) 09/28/18 06:35 MCV 92.7 fL (80-95) 09/28/18 06:35 MCH 31.1 pg (27.0-33.0) 09/28/18 06:35 MCHC 33.6 g/dL (32.0-36.0) 09/28/18 06:35 RDW 14.0 % (11.7-14.6) 09/28/18 06:35 Plt Count 109 x1000/uL (130-400) L 09/28/18 06:35 MPV 10.5 fL (8.0-11.0) 09/28/18 06:35 Immature Gran % 0.4 09/28/18 06:35 Neutrophils % 47.5 09/28/18 06:35 Lymphocytes % 42.4 09/28/18 06:35 Atypical Lymphs % 5 09/25/18 12:50 Monocytes % 6.6 09/28/18 06:35 Eosinophils % 2.3 09/28/18 06:35 Basophils % 0.8 09/28/18 06:35 Absolute Neutrophils 1.22 k/cumm (1.2-6.7) 09/28/18 06:35 Absolute Lymphocytes 1.09 k/cumm (1.2-3.4) L 09/28/18 06:35 Absolute Monocytes 0.17 k/cumm (0.11-0.7) 09/28/18 06:35 Absolute Eosinophils 0.06 k/cumm (0.0-0.7) 09/28/18 06:35 Absolute Basophils 0.02 k/cumm (0.0-0.2) 09/28/18 06:35 Differential Comment Agrees w/ instrument 09/28/18 06:35 RBC Morphology Normal 09/25/18 12:50 Sodium 141 mmol/L (136-145) 09/28/18 06:35 Potassium 4.7 mmol/L (3.5-5.1) 09/28/18 06:35 Chloride 108 mmol/L (98-107) H 09/28/18 06:35 Carbon Dioxide 27.7 mmol/L (21.0-32.0) 09/28/18 06:35 Anion Gap 5.3 mmol/L (3-11) 09/28/18 06:35 BUN 17 mg/dL (7-18) 09/28/18 06:35 Creatinine 1.01 mg/dL (0.55-1.02) 09/28/18 06:35 Estimated GFR/1.73 m2 57.79 (mL/min/1.73m2) 09/28/18 06:35 Glucose 90 mg/dL (70-100) 09/28/18 06:35 Calcium 8.3 mg/dL (8.5-10.1) L 09/28/18 06:35 Magnesium 2.1 mg/dL (1.8-2.4) 09/28/18 06:35 Total Bilirubin 0.3 mg/dL (0.2-1.0) 09/25/18 15:19 AST 14 U/L (15-37) L 09/25/18 15:19 ALT 19 U/L (12-78) 09/25/18 15:19 Alkaline Phosphatase 40 U/L (46-116) L 09/25/18 15:19 Total Protein 6.0 g/dL (6.4-8.2) L 09/25/18 15:19 Albumin 2.4 g/dL (3.4-5.0) L 09/25/18 15:19 TSH 1.39 uIU/mL (0.358-3.74) 09/25/18 12:50 Urine Color Yellow (Yellow) 09/26/18 12:50 Urine Clarity Clear 09/26/18 12:50 Urine pH 7.0 (5-8) 09/26/18 12:50 Ur Specific [place] 1.020 (1.005-1.025) 09/26/18 12:50 Urine Protein Negative mg/dL (Negative) 09/26/18 12:50 Urine Ketones Negative mg/dL (Negative) 09/26/18 12:50 Urine Blood Negative (Negative) 09/26/18 12:50 Urine Nitrite Negative (Negative) 09/26/18 12:50 Urine Bilirubin Negative (Negative) 09/26/18 12:50 Urine Urobilinogen 0.2 EU/dL (Up TO 0.2) 09/26/18 12:50 Ur Leukocyte Esterase Negative (Negative) 09/26/18 12:50 Urine Glucose Negative mg/dL (Negative) 09/26/18 12:50 Vancomycin Trough 27.3 ug/mL (10.0-20.0) H* 09/28/18 09:38 Salicylates 4.4 mg/dL (2.8-20.0) 09/25/18 12:50 Urine Opiates Screen Negative (Negative) 09/25/18 12:00 Urine Methadone Screen Negative (Negative) 09/25/18 12:00 Acetaminophen < 2 ug/mL (10-30) L 09/25/18 12:50 Ur Barbiturates Screen Negative (Negative) 09/25/18 12:00 Ur Tricyclics Screen Positive (Negative) 09/25/18 12:00 Ur Amphetamines Screen Negative (Negative) 09/25/18 12:00 U Benzodiazepines Scrn Negative (Negative) 09/25/18 12:00 Urine Cocaine Screen Negative (Negative) 09/25/18 12:00 Ur THC Screen Positive (Negative) 09/25/18 12:00 Ethyl Alcohol < 3.0 mg/dL (<3) 09/25/18 12:50
[2018-09-28] MEDS: Enoxaparin 40 MG/0.4 ML SYR SC (11:18)
[2018-09-28] MEDS: Normal Saline Flush 10 ML SYR IVP ×3 (11:47→19:06)
[2018-09-28 12:20] LABS: RBC Morphology Normal
[2018-09-28] MEDS: VANCOMYCIN 750 MG in Normal Saline 250 ML 166.667 MG IVPB (13:53)
[2018-09-28] MEDS: Ibuprofen 400 MG TAB PO (15:17)
[2018-09-28 16:34] VITALS: BP 169/68; PULSE 100; RESP 19; TEMP 37.1; O2SAT 97
[2018-09-28 20:04] VITALS: BP 117/93; PULSE 95; RESP 16; TEMP 36; O2SAT 94
[2018-09-28] MEDS: hydrOXYzine HCL 25 MG TAB 50 MG PO (20:59)
[2018-09-29] MEDS: VANCOMYCIN 750 MG in Normal Saline 250 ML 166.667 MG IVPB (01:28)
[2018-09-29] MEDS: Normal Saline Flush 10 ML SYR IVP ×8 (01:29→20:18)
--- NOTE | 2018-09-29 03:10 | NUR.NOTE ---
Nursing Note: Pt able to sleep but awaken due to Vancomycin IV at 0200 which upsets patient. Requested for nicotrol and morphine given for pain and with some relief. Voiding independently. Conversant and easily redirected. Behaviors offered are manageable.
[2018-09-29 07:43] LABS: Absolute Basophil Count 0.01 k/cumm (0.0-0.2); Absolute Eosinophil Count 0.06 k/cumm (0.0-0.7); Absolute Lymphocyte Count 1.23 k/cumm (1.2-3.4); Absolute Monocyte Count 0.16 k/cumm (0.11-0.7); Basophils % 0.5; Eosinophils % 2.9; HCT 33.6 % (36.0-46.0); HGB 11.3 g/dL (12.0-15.5); Lymphocytes % 59.7; Mean Corp. HGB Concentration 33.6 g/dL (32.0-36.0); Mean Corpuscular Hemoglobin 31.2 pg (27.0-33.0); Mean Corpuscular Volume 92.8 fL (80-95); Mean Platelet Volume 10.4 fL (8.0-11.0); Monocytes % 7.8; Neutrophils % 29.1; RBC 3.62 m/cumm (4.00-5.20); RBC Distribution Width 13.9 % (11.7-14.6); White Blood Cell Count 2.06 k/cumm (4.4-10.8)
[2018-09-29 07:54] LABS: Anion Gap 5.1 mmol/L (3-11); BUN 25 mg/dL (7-18); CO2 27.9 mmol/L (21.0-32.0); CREATININE 0.71 mg/dL (0.55-1.02); Calcium 8.3 mg/dL (8.5-10.1); Chloride 106 mmol/L (98-107); Glucose 112 mg/dL (70-100); Magnesium 1.7 mg/dL (1.8-2.4); Potassium 4.2 mmol/L (3.5-5.1); Sodium 139 mmol/L (136-145)
[2018-09-29 08:19] LABS: Diff Comment Diff Reviewed; Platelet Count 109 x1000/uL (130-400); RBC Morphology Normal
[2018-09-29] MEDS: Pregabalin 100 MG CAP PO (08:34)
[2018-09-29] MEDS: clonazePAM 1 MG TAB PO ×2 (08:34→20:20)
[2018-09-29] MEDS: hydrOXYzine HCL 25 MG TAB 50 MG PO (08:35)
[2018-09-29] MEDS: Magnesium Chloride 64 MG TABCR PO (08:36)
[2018-09-29] MEDS: Lansoprazole 30 MG CAPCR PO (08:36)
[2018-09-29 09:00] VITALS: BP 132/83; PULSE 118; RESP 22; TEMP 36.9; O2SAT 99
[2018-09-29] MEDS: Enoxaparin 40 MG/0.4 ML SYR SC (09:30)
[2018-09-29] MEDS: MAGNESIUM SULFATE 2 GM/50 ML BAG IVPB (09:45)
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
--- NOTE | 2018-09-29 11:46 | PT.INIE ---
Date of service: 09/29/18 Time of Service: 08:50 PT Notes Inpatient Physical Therapy Evaluation Date: 09/29/18 Referring Doctor: Dianne Peck NP PT Orders: PT CONSULT: weakness, hand infection Precautions: Fall, standard Patient Profile/Admitting Diagnosis: Patient admitted 09/26/2018 for psychiatric disorder. She was also found to have cellulitis of the right hand secondary to frostbite; she underwent I&D performed by Dr. Merlos on 09/26. She suffered a fall in her hospital room 224, and PT consult was requested to assess mobility. PMHX: Tobacco dependence syndrome (Chronic) Inactive tuberculosis (Inactive) Drug abuse (Inactive) Alcohol abuse (Inactive) Chronic hepatitis (Chronic) Bipolar disorder (Chronic) Endocarditis (Resolved) Methicillin resistant Staphylococcus aureus infection (Resolved) Cervical spondylosis (Chronic) Lichen simplex chronicus (Resolved) Hepatitis C (Chronic) Gastroesophageal reflux disease (Chronic) Asthma (Chronic) Osteomyelitis (Resolved) Thrombocytopenia (Resolved 08/23/16) Staphylococcal infection of skin (Resolved 11/07/16) Sleep disturbance (Resolved 08/23/16) Psychogenic nonepileptic seizure (Chronic 11/27/16) Paresthesia (Chronic 08/23/16) Osteomyelitis (Resolved 07/09/14) On stimulant medication (Chronic 08/20/17) Mood disorder (Chronic 08/23/16) MRSA (methicillin resistant Staphylococcus aureus) (Resolved 07/09/14) Lichen simplex chronicus (Resolved 07/16/14) History of intravenous drug use in remission (Resolved 07/09/14) History of endocarditis (Resolved 07/09/14) GERD (gastroesophageal reflux disease) (Chronic 07/09/14) Depression (Chronic 08/23/16) Congenital connective tissue disorder (Chronic) Cirrhosis of liver without ascites (Chronic 11/27/16) Chronic pain syndrome (Chronic 10/03/16) Chronic nausea (Chronic 07/09/14) Cervical spondylosis (Chronic 07/09/14) COPD (chronic obstructive pulmonary disease) (Chronic 08/23/16) Attention deficit disorder (ADD) in adult (Chronic) Alcohol abuse (Resolved 07/09/14) Adjustment disorder with mixed anxiety and depressed mood (Chronic 08/27/17) Acute allergic rhinitis due to pollen (Chronic 05/29/17) Polysubstance dependence including opioid type drug with complication, continuous use (Resolved) Chronic osteomyelitis of right shoulder region (Chronic) Endometriosis (Resolved) Social History/Home Situation: Patient reports that she is currently homeless. She has family in the [place] area, and states that she is hopeful she will be able to stay with them upon discharge. She states that she plans to stay with her daughter, who is currently in the process of looking for a new living situation herself. Her baseline level of mobility is difficult to ascertain, although patient does report history of multiple falls. Equipment Owned/DME: None Subjective: Patient states that she is having a difficult day. She is having a great deal of pain in her right hand, and states that she has a great deal of social stressors. States Objective: General Observation: Sitting at edge of bed at initiation of session. Patient is in constant motion during session, frequently rocking forward and back. Mental Status: A and O x3, although with deviating history and need for frequent cueing and redirection Pain: 10/10 right hand ROM: Right Upper Extremity: Shoulder flexion allows 140 degrees. Elbow motion grossly within normal limits. Hand motion allows only partial clothing sorter. Left Upper Extremity: Shoulder flexion allows 120 degrees. Elbow motion grossly within normal limits. Hand motion allows only partial clothing sorter. Right Lower Extremity: WFL Left Lower Extremity: WFL Strength: Right Upper Extremity: Shoulder flexion grossly 3-/5. Left Upper Extremity: Shoulder flexion grossly 3-/5. Right Lower Extremity: hip Flexion 3+/5. Quads 3+/5. Ankle dorsiflexion 3/5 Left Lower Extremity: hip Flexion 3+/5. Quads 4/5. Ankle dorsiflexion 3/5 Sensation: Diminished through plantar aspect of both feet Bed Mobility/Transfers: Supine to sit: Supervision Sit to supine: Supervision Sit to stand: Supervision Stand to sit: Supervision Bed to chair: FW W, CG Gait: Patient ambulates 20 feet with FW W and contact-guard. She demonstrates poor safety awareness, with loss of balance x2, requiring assistance for recovery. She has positive antalgia, with right knee buckling on various occasions during ambulation. Balance: Static Sitting: Good Dynamic Sitting: Good Static Standing: Fair Dynamic Standing: poor Special Tests: Mobility Limitations Standardized Measure [facility] AM-PAC 6 clicks Basic Mobility Inpatient Short Form: Raw Score: 18 CMS Score: 51% deficit Informed Consent/Education: Patient instructed in purpose of PT consult and plan of care. Assessment: Patient is a 53 year old female referred to physical therapy services with the diagnosis of weakness, hand infection. Patient presents with clinical signs and symptoms consistent with chronic mobility issues, exacerbated by recent hospitalization to address psychiatric disorder and cellulitis of the right hand. Patient has a long history of falls, as well as a complicated medical history, placing her at high risk for future falls. She has lower extremity weakness and balance deficits, on top of limitations in safety awareness, which make her an unsafe candidate for return to independent living in the community. She currently demonstrates the following impairment level findings: 1. Decreased safety awareness 2. Decreased balance 3. Decreased LE strength 4. Decreased UE ROM Impairments are contributing to the following functional limitations: 1. High fall risk 2. Decreased independence with household distance ambulation Patient is assessed as High 52004 complexity based on the following: History: 53-year-old female with extensive medical history, admitted for management of psychiatric disorder and cellulitis of the right hand. She has a long history of falls, as well as contributing social factors including current homelessness. Examination: Functional limitations as noted above, with patient unable to demonstrate appropriate safety awareness for independent ambulation, and already suffering a fall during her hospitalization Presentation: Unstable Decision Making: High complexity Goals: Goals X1 week 1. Supine-Sit: Supervision 2. Sit-Supine : Supervision 3. Sit-Stand: Supervision 4. Stand-Sit : Supervision 5. Bed-Chair: Supervision 6. Chair-Bed: Supervision 7. Gait: Supervision with FWW x 50' Plan of Care/Treatment Plan: 1x/day, 7 days/week x 1 week. Plan of care has been reviewed with the [employer] providing the service under Physical Therapy direction. Initiate Physical Therapy intervention for strengthening, bed mobility, transfers, gait, stairs, balance training, use of assistive device. DISCHARGE RECOMMENDATIONS: nursing home facility for continued rehabilitation TREATMENT CODE/TIME: [id number] ([id number])
--- NOTE | 2018-09-29 11:52 | IN_ITS ---
Date of service: 09/29/18 Time of Service: 08:50 PT Notes Inpatient Physical Therapy Evaluation Date: 09/29/18 Referring Doctor: Dianne Peck NP PT Orders: PT CONSULT: weakness, hand infection Precautions: Fall, standard Patient Profile/Admitting Diagnosis: Patient admitted 09/26/2018 for psychiatric disorder. She was also found to have cellulitis of the right hand secondary to frostbite; she underwent I&D performed by Dr. Merlos on 09/26. She suffered a fall in her hospital room 224, and PT consult was requested to assess mobility. PMHX: Tobacco dependence syndrome (Chronic) Inactive tuberculosis (Inactive) Drug abuse (Inactive) Alcohol abuse (Inactive) Chronic hepatitis (Chronic) Bipolar disorder (Chronic) Endocarditis (Resolved) Methicillin resistant Staphylococcus aureus infection (Resolved) Cervical spondylosis (Chronic) Lichen simplex chronicus (Resolved) Hepatitis C (Chronic) Gastroesophageal reflux disease (Chronic) Asthma (Chronic) Osteomyelitis (Resolved) Thrombocytopenia (Resolved 08/23/16) Staphylococcal infection of skin (Resolved 11/07/16) Sleep disturbance (Resolved 08/23/16) Psychogenic nonepileptic seizure (Chronic 11/27/16) Paresthesia (Chronic 08/23/16) Osteomyelitis (Resolved 07/09/14) On stimulant medication (Chronic 08/20/17) Mood disorder (Chronic 08/23/16) MRSA (methicillin resistant Staphylococcus aureus) (Resolved 07/09/14) Lichen simplex chronicus (Resolved 07/16/14) History of intravenous drug use in remission (Resolved 07/09/14) History of endocarditis (Resolved 07/09/14) GERD (gastroesophageal reflux disease) (Chronic 07/09/14) Depression (Chronic 08/23/16) Congenital connective tissue disorder (Chronic) Cirrhosis of liver without ascites (Chronic 11/27/16) Chronic pain syndrome (Chronic 10/03/16) Chronic nausea (Chronic 07/09/14) Cervical spondylosis (Chronic 07/09/14) COPD (chronic obstructive pulmonary disease) (Chronic 08/23/16) Attention deficit disorder (ADD) in adult (Chronic) Alcohol abuse (Resolved 07/09/14) Adjustment disorder with mixed anxiety and depressed mood (Chronic 08/27/17) Acute allergic rhinitis due to pollen (Chronic 05/29/17) Polysubstance dependence including opioid type drug with complication, continuous use (Resolved) Chronic osteomyelitis of right shoulder region (Chronic) Endometriosis (Resolved) Social History/Home Situation: Patient reports that she is currently homeless. She has family in the [place] area, and states that she is hopeful she will be able to stay with them upon discharge. She states that she plans to stay with her daughter, who is currently in the process of looking for a new living situation herself. Her baseline level of mobility is difficult to ascertain, although patient does report history of multiple falls. Equipment Owned/DME: None Subjective: Patient states that she is having a difficult day. She is having a great deal of pain in her right hand, and states that she has a great deal of social stressors. States Objective: General Observation: Sitting at edge of bed at initiation of session. Patient is in constant motion during session, frequently rocking forward and back. Mental Status: A and O x3, although with deviating history and need for frequent cueing and redirection Pain: 10/10 right hand ROM: Right Upper Extremity: Shoulder flexion allows 140 degrees. Elbow motion grossly within normal limits. Hand motion allows only partial managed care specialist. Left Upper Extremity: Shoulder flexion allows 120 degrees. Elbow motion grossly within normal limits. Hand motion allows only partial managed care specialist. Right Lower Extremity: WFL Left Lower Extremity: WFL Strength: Right Upper Extremity: Shoulder flexion grossly 3-/5. Left Upper Extremity: Shoulder flexion grossly 3-/5. Right Lower Extremity: hip Flexion 3+/5. Quads 3+/5. Ankle dorsiflexion 3/5 Left Lower Extremity: hip Flexion 3+/5. Quads 4/5. Ankle dorsiflexion 3/5 Sensation: Diminished through plantar aspect of both feet Bed Mobility/Transfers: Supine to sit: Supervision Sit to supine: Supervision Sit to stand: Supervision Stand to sit: Supervision Bed to chair: FW W, CG Gait: Patient ambulates 20 feet with FW W and contact-guard. She demonstrates poor safety awareness, with loss of balance x2, requiring assistance for recovery. She has positive antalgia, with right knee buckling on various occasions during ambulation. Balance: Static Sitting: Good Dynamic Sitting: Good Static Standing: Fair Dynamic Standing: poor Special Tests: Mobility Limitations Standardized Measure [facility] AM-PAC 6 clicks Basic Mobility Inpatient Short Form: Raw Score: 18 CMS Score: 51% deficit Informed Consent/Education: Patient instructed in purpose of PT consult and plan of care. Assessment: Patient is a 53 year old female referred to physical therapy services with the diagnosis of weakness, hand infection. Patient presents with clinical signs and symptoms consistent with chronic mobility issues, exacerbated by recent hospitalization to address psychiatric disorder and cellulitis of the right hand. Patient has a long history of falls, as well as a complicated medical history, placing her at high risk for future falls. She has lower extremity weakness and balance deficits, on top of limitations in safety awareness, which make her an unsafe candidate for return to independent living in the community. She currently demonstrates the following impairment level findings: 1. Decreased safety awareness 2. Decreased balance 3. Decreased LE strength 4. Decreased UE ROM Impairments are contributing to the following functional limitations: 1. High fall risk 2. Decreased independence with household distance ambulation Patient is assessed as High 00540 complexity based on the following: History: 53-year-old female with extensive medical history, admitted for management of psychiatric disorder and cellulitis of the right hand. She has a long history of falls, as well as contributing social factors including current homelessness. Examination: Functional limitations as noted above, with patient unable to demonstrate appropriate safety awareness for independent ambulation, and already suffering a fall during her hospitalization Presentation: Unstable Decision Making: High complexity Goals: Goals X1 week 1. Supine-Sit: Supervision 2. Sit-Supine : Supervision 3. Sit-Stand: Supervision 4. Stand-Sit : Supervision 5. Bed-Chair: Supervision 6. Chair-Bed: Supervision 7. Gait: Supervision with FWW x 50' Plan of Care/Treatment Plan: 1x/day, 7 days/week x 1 week. Plan of care has been reviewed with the OFFICE COORDINATOR providing the service under Physical Therapy direction. Initiate Physical Therapy intervention for strengthening, bed mobility, transfers, gait, stairs, balance training, use of assistive device. DISCHARGE RECOMMENDATIONS: alf facility for continued rehabilitation TREATMENT CODE/TIME: [id number] ([id number])
[2018-09-29] MEDS: traMADol 50 MG TAB PO ×2 (12:11→17:18)
[2018-09-29] MEDS: Normal Saline 500 ML 10 ML IV (12:12)
[2018-09-29] MEDS: Acetaminophen 325 MG TAB PO ×2 (12:14→17:18)
--- NOTE | 2018-09-29 13:53 | W.NUTCONSULT ---
Date of service: 09/29/18 Time of Service: 13:53 Nutritional Consult ASSESSMENT: Ms. Peña has variable PO intake here from refusing meals to eating 100% of her meal. She gets strawberry Ensure plus with each meal. She is on a regular diet with psychiatric precautions. She is 62 and 48.9 kg. Her BMI is 19.7 kg/m2 which is WNL. Of note, her weight in November of 2017 was 56.1 kg and in April of 2018 was 51.4 kg. These weights represent a 19.6% and 4.9% weight loss respectively. Her weight loss since November of 2017 is considered significant, however her weight loss since April of 2018 is only mild and looking at serial weights has stabilized. NUTRITIONAL DIAGNOSIS: Unintentional weight loss related inadequate intake of calories and protein as evidenced by weight loss noted above. INTERVENTION: Will continue to encourage nutrient dense oral intake of foods and fluids. Will continue to encourage Ensure Plus with meals. MONITORING AND EVALUATION: 1. Will monitor PO intake, weight, and progress. 2. Will evaluate nutrition care plan ongoing and adjust as needed. Time Spent in Nutritional Counseling and Treatment: MOODY
--- NOTE | 2018-09-29 14:17 | PDOC.CMPRO ---
- If Service Date Differs Date of service: 09/29/18 Time of Service: 14:17 Care Management Progress Note S/O: Joe is sitting up in her bed when this play writer visits. Her thoughts are very scattered throughout discussion. Joe requests that this CM contact Urgent care with her ([phone]) in regards to DC plans. CM spoke with Urgent Care with Joe present, whom referred Joe to [facility] [phone]. CM and Joe spoke with [facility], [facility], whom states that they are a private pay company, and that due to Joe's finances she would not qualify for this. CM attempted to speak with Joe about SNF's locally, and she states she would like to be placed in [place], as this is closer to her daughter. Joe was unable to give this play writer choices for SNF's in the [place] area, as she was very scattered with her thought process throughout discussion, and talking about her history, as well as her daughters past. Joe states that she would ultimately like to move into an apartment with her daughter. Alexa Duffy, [facility], will be in to visit with Joe today, which CM notified her of, Joe is receptive to this. Nevin Troncoso has also spoken with Joe today from [facility]. A: Joe is a 53 year old female with a significant history of Bipolar, depression, previous suicide attempts and multiple psychiatric admissions.Joe was admitted with SI which has since stabilized. She is now currently inpatient for cellulitis and abscess of right hand r/t recent frostbite. P: Joe will be discharged to a SNF once medically cleared, and once appropriate placement is found. She is currently being treated for right hand cellulitis and will remain inpatient over the weekend. Joe will transport via [facility] upon discharge.
--- NOTE | 2018-09-29 14:29 | CMPROGNOTE_ITS ---
- If Service Date Differs Date of service: 09/29/18 Time of Service: 14:17 Care Management Progress Note S/O: Joe is sitting up in her bed when this gag writer visits. Her thoughts are very scattered throughout discussion. Joe requests that this CM contact Urgent care with her ([phone]) in regards to DC plans. CM spoke with Urgent Care with Joe present, whom referred Joe to [facility] [phone]. CM and Joe spoke with [facility], [facility], whom states that they are a private pay company, and that due to Joe's finances she would not qualify for this. CM attempted to speak with Joe about SNF's locally, and she states she would like to be placed in [place], as this is closer to her daughter. Joe was unable to give this gag writer choices for SNF's in the [place] area, as she was very scattered with her thought process throughout discussion, and talking about her history, as well as her daughters past. Joe states that she would ultimately like to move into an apartment with her daughter. Alexa Duffy, [facility], will be in to visit with Joe today, which CM notified her of, Joe is receptive to this. Nevin Troncoso has also spoken with Joe today from [facility]. A: Joe is a 53 year old female with a significant history of Bipolar, depression, previous suicide attempts and multiple psychiatric admissions.Joe was admitted with SI which has since stabilized. She is now currently inpatient for cellulitis and abscess of right hand r/t recent frostbite. P: Joe will be discharged to a SNF once medically cleared, and once appropriate placement is found. She is currently being treated for right hand cellulitis and will remain inpatient over the weekend. Joe will transport via [facility] upon discharge.
--- NOTE | 2018-09-29 14:41 | PGE_ITS ---
Date of Service Date of service: 09/29/18 Time of Service: 14:47 Assessment and Plan (1) Cellulitis and abscess of hand: Current visit: Yes Status: Acute culture identified MSSA, ID contacted and antibiotic changed to cefazolin per recommendation. (2) Frostbite of both hands: Current visit: Yes Status: Acute Increasing pain to hands, tingling, burning, lyrica increased to 200 mg BID (3) Depression: Current visit: Yes Status: Chronic Denying SI and HI today (4) Bipolar disorder: Current visit: Yes Status: Chronic Atarax increased to 100 mg BID, pt states not helping but appearing less anxious today then last 2 days and did get dressed and put makeup on today. (5) Psychogenic nonepileptic seizure: Current visit: Yes Status: Chronic Continue Klonopin 1 mg twice daily. (6) Attention deficit disorder (ADD) in adult: Current visit: Yes Status: Chronic Continue Adderall XR 20 mg twice daily (7) On stimulant medication: Current visit: Yes Status: Chronic Chronically on Adderall for ADHD (8) Discharge planning issues: Current visit: Yes Status: Acute PT/OT recommendation SNIF for rehab due to high fall risk and injury (9) DVT prophylaxis: Current visit: Yes Status: Acute Lovenox SC (10) Anxious mood: Current visit: Yes Status: Chronic see above. Subjective Interval history since last seen: Ms Peña is all over the place today with converstation. She will talk in normal sentences followed up bouts of crying. She is denying SI. She was started on atarax 50 mg PO BID she does not believe it is working, though she appears to less anxious today. Her dose was increased to 100 mg BID. Her wound culture came back with MSSA after speaking with ID she has been taking off of vancomycin and placed on cefazolin for better coverage. She is upset abou t losing her hand today. She states the color is worse and the pain is worse. She c/o worsening neuropathy pain with pins and needles and tingling. She currently takes lyrica it has been increased to 200 mg BID. The wound on the first finger digit has increased since yesterday and become more discolored. We will evaluate in 24 hours to see if wound is improving with change in antibiotics. Exam Const General: cooperative, comfortable and no acute distress Nutritional Appearance: thin Orientation: alert, awake and oriented x3 Limitations: physical limitations HENMT Head: normal to inspection Teeth and gingiva: poor dentition (No upper teeth, only front teeth in the lower) Eyes General: appearance normal, both eyes and all related structures Neck Neck: normal visual inspection Lymphatic: no lymphadenopathy noted Chest Chest: normal inspection of the chest Resp Effort & Inspection: normal respiratory effort Auscultation: clear to auscultation bilaterally Cardio Jugular venous pressure: no JVD Rate: regular rate Rhythm: regular rhythm Heart Sounds: S1 normal, S2 normal and no murmurs GI Inspection: normal to inspection Palpation: soft, no hepatosplenomegaly and nontender Back/Spine/Pelvis Back: no CVA tenderness Cervical Spine: normal cervical lordosis Thoracic/Lumbar Spine: thoracic and lumbar spine normal to inspection Skin General skin exam: no rashes or lesions noted Wounds: amputation site (Tips of 2 of her 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 exfoliated, crusted over, no infection) Other: wound to first digit from tip to mid nail bed Neuro General: alert, awake, oriented x3, moves all extremities and no focal motor deficits Extrem General: normal to inspection Right upper extremity: hand (erythematous, swollen s/p I&D) Other: right hand with wound and erythema, cool to touch, left hand is erythemic Psych Appearance: disheveled Mental Status: other Speech and Movement: speech and movement normal, agitated and pressured speech Mood: congruent mood, anxious mood, dysthymic mood, manic mood and other Affect: normal affect, labile affect, animated and anxious affect Attitude: cooperative Thought Process: normal, circumstantial and flight of ideas Insight: limited Judgment: limited Objective Objective Clinical Data: Abnormal lab results 09/29/18 09/29/18 Range/Units 07:30 07:30 WBC 2.06 L (4.4-10.8) k/cumm RBC 3.62 L (4.00-5.20) m/cumm Hgb 11.3 L (12.0-15.5) g/dL Hct 33.6 L (36.0-46.0) % Plt Count 109 L (130-400) x1000/uL Absolute Neutrophils 0.60 L (1.2-6.7) k/cumm BUN 25 H (7-18) mg/dL Glucose 112 H (70-100) mg/dL Calcium 8.3 L (8.5-10.1) mg/dL Magnesium 1.7 L (1.8-2.4) mg/dL Vital Signs Temperature 36.9 C 09/29/18 09:00 Temperature Source Temporal Artery Scan 09/29/18 09:00 Pulse 118 H 09/29/18 09:00 Pulse Rhythm Regular 09/28/18 22:04 Pulse 104 H 09/25/18 16:31 Respiratory Rate 22 09/29/18 09:00 Respiratory Effort 09/29/18 08:00 Respiratory Depth Shallow 09/29/18 08:00 Respiratory Pattern Tachypnea 09/29/18 08:00 Blood Pressure 132/83 09/29/18 09:00 Blood Pressure Mean 73 09/25/18 16:31 Pulse Oximetry 99 09/29/18 09:00 Oxygen Delivery Method Room Air 09/29/18 09:00 Oxygen Flow Rate 0 09/29/18 09:00 Pain Level 10 09/29/18 03:28 Intake & Output 09/28/18 09/29/18 09/29/18 23:59 11:59 23:59 Intake Total 1030 / 2293.333 740 / 740 Balance 1030 / 2293.333 740 / 740 Intake: IV 310 / 1093.333 250 / 250 Oral 720 / 1200 490 / 490 Other: Urine Color Yellow Urine Appearance Cloudy Urine Odor Normal Voiding Methods Toilet Toilet Laboratory Results WBC 2.06 k/cumm (4.4-10.8) L 09/29/18 07:30 RBC 3.62 m/cumm (4.00-5.20) L 09/29/18 07:30 Hgb 11.3 g/dL (12.0-15.5) L 09/29/18 07:30 Hct 33.6 % (36.0-46.0) L 09/29/18 07:30 MCV 92.8 fL (80-95) 09/29/18 07:30 MCH 31.2 pg (27.0-33.0) 09/29/18 07:30 MCHC 33.6 g/dL (32.0-36.0) 09/29/18 07:30 RDW 13.9 % (11.7-14.6) 09/29/18 07:30 Plt Count 109 x1000/uL (130-400) L 09/29/18 07:30 MPV 10.4 fL (8.0-11.0) 09/29/18 07:30 Immature Gran % 0.0 09/29/18 07:30 Neutrophils % 29.1 09/29/18 07:30 Lymphocytes % 59.7 09/29/18 07:30 Atypical Lymphs % 5 09/25/18 12:50 Monocytes % 7.8 09/29/18 07:30 Eosinophils % 2.9 09/29/18 07:30 Basophils % 0.5 09/29/18 07:30 Absolute Neutrophils 0.60 k/cumm (1.2-6.7) L 09/29/18 07:30 Absolute Lymphocytes 1.23 k/cumm (1.2-3.4) 09/29/18 07:30 Absolute Monocytes 0.16 k/cumm (0.11-0.7) 09/29/18 07:30 Absolute Eosinophils 0.06 k/cumm (0.0-0.7) 09/29/18 07:30 Absolute Basophils 0.01 k/cumm (0.0-0.2) 09/29/18 07:30 Differential Comment Diff reviewed 09/29/18 07:30 RBC Morphology Normal 09/29/18 07:30 Sodium 139 mmol/L (136-145) 09/29/18 07:30 Potassium 4.2 mmol/L (3.5-5.1) 09/29/18 07:30 Chloride 106 mmol/L (98-107) 09/29/18 07:30 Carbon Dioxide 27.9 mmol/L (21.0-32.0) 09/29/18 07:30 Anion Gap 5.1 mmol/L (3-11) 09/29/18 07:30 BUN 25 mg/dL (7-18) H 09/29/18 07:30 Creatinine 0.71 mg/dL (0.55-1.02) 09/29/18 07:30 Estimated GFR/1.73 m2 >= 60.00 (mL/min/1.73m2) 09/29/18 07:30 Glucose 112 mg/dL (70-100) H 09/29/18 07:30 Calcium 8.3 mg/dL (8.5-10.1) L 09/29/18 07:30 Magnesium 1.7 mg/dL (1.8-2.4) L 09/29/18 07:30 Total Bilirubin 0.3 mg/dL (0.2-1.0) 09/25/18 15:19 AST 14 U/L (15-37) L 09/25/18 15:19 ALT 19 U/L (12-78) 09/25/18 15:19 Alkaline Phosphatase 40 U/L (46-116) L 09/25/18 15:19 Total Protein 6.0 g/dL (6.4-8.2) L 09/25/18 15:19 Albumin 2.4 g/dL (3.4-5.0) L 09/25/18 15:19 TSH 1.39 uIU/mL (0.358-3.74) 09/25/18 12:50 Urine Color Yellow (Yellow) 09/26/18 12:50 Urine Clarity Clear 09/26/18 12:50 Urine pH 7.0 (5-8) 09/26/18 12:50 Ur Specific [place] 1.020 (1.005-1.025) 09/26/18 12:50 Urine Protein Negative mg/dL (Negative) 09/26/18 12:50 Urine Ketones Negative mg/dL (Negative) 09/26/18 12:50 Urine Blood Negative (Negative) 09/26/18 12:50 Urine Nitrite Negative (Negative) 09/26/18 12:50 Urine Bilirubin Negative (Negative) 09/26/18 12:50 Urine Urobilinogen 0.2 EU/dL (Up TO 0.2) 09/26/18 12:50 Ur Leukocyte Esterase Negative (Negative) 09/26/18 12:50 Urine Glucose Negative mg/dL (Negative) 09/26/18 12:50 Vancomycin Trough 27.3 ug/mL (10.0-20.0) H* 09/28/18 09:38 Salicylates 4.4 mg/dL (2.8-20.0) 09/25/18 12:50 Urine Opiates Screen Negative (Negative) 09/25/18 12:00 Urine Methadone Screen Negative (Negative) 09/25/18 12:00 Acetaminophen < 2 ug/mL (10-30) L 09/25/18 12:50 Ur Barbiturates Screen Negative (Negative) 09/25/18 12:00 Ur Tricyclics Screen Positive (Negative) 09/25/18 12:00 Ur Amphetamines Screen Negative (Negative) 09/25/18 12:00 U Benzodiazepines Scrn Negative (Negative) 09/25/18 12:00 Urine Cocaine Screen Negative (Negative) 09/25/18 12:00 Ur THC Screen Positive (Negative) 09/25/18 12:00 Ethyl Alcohol < 3.0 mg/dL (<3) 09/25/18 12:50
--- NOTE | 2018-09-29 18:21 | NUR.NOTE ---
pt reported to nurse that if she was not allowed to go outside to have a cigarette that she would have a seizure- several minutes later she slid down wall to floor and began shaking in all 4 extremities- placed pillow under pt's head and monitored for safety- Dr. Pena notified- withing 2 minutes pt was awake and crying. Requested different nurse to assist her back to bed. Vital signs assessed- primary nurse was notified. Nursing Note:
[2018-09-29] MEDS: LORazepam 2 MG/ML VIAL 1 MG IVP (18:52)
[2018-09-29 19:30] VITALS: BP 130/90; PULSE 100; RESP 22; TEMP 36; O2SAT 99
[2018-09-29] MEDS: Pregabalin 100 MG CAP 200 MG PO (20:19)
[2018-09-29] MEDS: hydrOXYzine HCL 50 MG TAB 100 MG PO (20:21)
--- NOTE | 2018-09-29 21:14 | PGE_ITS ---
Date of Service Date of service: 09/29/18 Time of Service: 13:11 Assessment and Plan (1) Abscess of right hand: Current visit: Yes Status: Acute Joe is a 53yo with a resolving abscess of the right hand. There are no systemic signs. There is no significant reaccumulation on exam today. She has no signs of flexor tenosynovitis. She does have some sensitivy at the finger's end. This right index finger is shorteneed wisome palpable bone at the wound base. This causes some discomfort. At this point, she may get switched to orals. I placed DuoDerm onto the end of the index finger with te hopes to decrease the sensitivitiy. She tolerated thi well. Subjective Interval history since last seen: Joe reports that the dorsum of the hand s doing much better. She doesn't complain of pain at that area. However, she has had some increasing pain at the tip of the index finger. Erythema is much improved. No fever or chills. She reports diffuse numbness to all of the fingers, but especially the right index finger. Exam Narrative Exam Narrative: Evaluation of the right hand shows significantly less prominesne. Th earea of I&D has gone down and is without discharge. The tip of the index finger show some partical amputation. She is able to make a fist, lacking only the termnal 5-10 degrees. There is gobal decreasd sensation at the fingertips. No pain along the flexor tendon sheath. Objective Objective Clinical Data: Abnormal lab results 09/29/18 09/29/18 Range/Units 07:30 07:30 WBC 2.06 L (4.4-10.8) k/cumm RBC 3.62 L (4.00-5.20) m/cumm Hgb 11.3 L (12.0-15.5) g/dL Hct 33.6 L (36.0-46.0) % Plt Count 109 L (130-400) x1000/uL Absolute Neutrophils 0.60 L (1.2-6.7) k/cumm BUN 25 H (7-18) mg/dL Glucose 112 H (70-100) mg/dL Calcium 8.3 L (8.5-10.1) mg/dL Magnesium 1.7 L (1.8-2.4) mg/dL Vital Signs Temperature 36 C L 02/25/19 19:30 Temperature Source Tympanic 09/29/18 19:30 Pulse 100 H 09/29/18 19:30 Pulse Rhythm Regular 09/29/18 15:20 Pulse 104 H 09/25/18 16:31 Respiratory Rate 22 09/29/18 19:30 Respiratory Effort 09/29/18 15:20 Respiratory Depth Normal 09/29/18 15:20 Respiratory Pattern Normal 09/29/18 15:20 Blood Pressure 130/90 09/29/18 19:30 Blood Pressure Mean 73 09/25/18 16:31 Pulse Oximetry 99 09/29/18 19:30 Oxygen Delivery Method Room Air 09/29/18 19:30 Oxygen Flow Rate 0 09/29/18 19:30 Pain Level 10 09/29/18 03:28 Intake & Output 09/28/18 09/29/18 09/29/18 23:59 11:59 23:59 Intake Total 1030 / 2293.333 740 / 1684.666 944.666 / 1684.666 Balance 1030 / 2293.333 740 / 1684.666 944.666 / 1684.666 Intake: IV 310 / 1093.333 250 / 404.666 154.666 / 404.666 Oral 720 / 1200 490 / 1280 790 / 1280 Other: Urine Color Yellow Urine Appearance Cloudy Cloudy Urine Odor Normal Voiding Methods Toilet Toilet Toilet Laboratory Results WBC 2.06 k/cumm (4.4-10.8) L 09/29/18 07:30 RBC 3.62 m/cumm (4.00-5.20) L 09/29/18 07:30 Hgb 11.3 g/dL (12.0-15.5) L 09/29/18 07:30 Hct 33.6 % (36.0-46.0) L 09/29/18 07:30 MCV 92.8 fL (80-95) 09/29/18 07:30 MCH 31.2 pg (27.0-33.0) 09/29/18 07:30 MCHC 33.6 g/dL (32.0-36.0) 09/29/18 07:30 RDW 13.9 % (11.7-14.6) 09/29/18 07:30 Plt Count 109 x1000/uL (130-400) L 09/29/18 07:30 MPV 10.4 fL (8.0-11.0) 09/29/18 07:30 Immature Gran % 0.0 09/29/18 07:30 Neutrophils % 29.1 09/29/18 07:30 Lymphocytes % 59.7 09/29/18 07:30 Atypical Lymphs % 5 09/25/18 12:50 Monocytes % 7.8 09/29/18 07:30 Eosinophils % 2.9 09/29/18 07:30 Basophils % 0.5 09/29/18 07:30 Absolute Neutrophils 0.60 k/cumm (1.2-6.7) L 09/29/18 07:30 Absolute Lymphocytes 1.23 k/cumm (1.2-3.4) 09/29/18 07:30 Absolute Monocytes 0.16 k/cumm (0.11-0.7) 09/29/18 07:30 Absolute Eosinophils 0.06 k/cumm (0.0-0.7) 09/29/18 07:30 Absolute Basophils 0.01 k/cumm (0.0-0.2) 09/29/18 07:30 Differential Comment Diff reviewed 09/29/18 07:30 RBC Morphology Normal 09/29/18 07:30 Sodium 139 mmol/L (136-145) 09/29/18 07:30 Potassium 4.2 mmol/L (3.5-5.1) 09/29/18 07:30 Chloride 106 mmol/L (98-107) 09/29/18 07:30 Carbon Dioxide 27.9 mmol/L (21.0-32.0) 09/29/18 07:30 Anion Gap 5.1 mmol/L (3-11) 09/29/18 07:30 BUN 25 mg/dL (7-18) H 09/29/18 07:30 Creatinine 0.71 mg/dL (0.55-1.02) 09/29/18 07:30 Estimated GFR/1.73 m2 >= 60.00 (mL/min/1.73m2) 09/29/18 07:30 Glucose 112 mg/dL (70-100) H 09/29/18 07:30 Calcium 8.3 mg/dL (8.5-10.1) L 09/29/18 07:30 Magnesium 1.7 mg/dL (1.8-2.4) L 09/29/18 07:30 Total Bilirubin 0.3 mg/dL (0.2-1.0) 09/25/18 15:19 AST 14 U/L (15-37) L 09/25/18 15:19 ALT 19 U/L (12-78) 09/25/18 15:19 Alkaline Phosphatase 40 U/L (46-116) L 09/25/18 15:19 Total Protein 6.0 g/dL (6.4-8.2) L 09/25/18 15:19 Albumin 2.4 g/dL (3.4-5.0) L 09/25/18 15:19 TSH 1.39 uIU/mL (0.358-3.74) 09/25/18 12:50 Urine Color Yellow (Yellow) 09/26/18 12:50 Urine Clarity Clear 09/26/18 12:50 Urine pH 7.0 (5-8) 09/26/18 12:50 Ur Specific [place] 1.020 (1.005-1.025) 09/26/18 12:50 Urine Protein Negative mg/dL (Negative) 09/26/18 12:50 Urine Ketones Negative mg/dL (Negative) 09/26/18 12:50 Urine Blood Negative (Negative) 09/26/18 12:50 Urine Nitrite Negative (Negative) 09/26/18 12:50 Urine Bilirubin Negative (Negative) 09/26/18 12:50 Urine Urobilinogen 0.2 EU/dL (Up TO 0.2) 09/26/18 12:50 Ur Leukocyte Esterase Negative (Negative) 09/26/18 12:50 Urine Glucose Negative mg/dL (Negative) 09/26/18 12:50 Vancomycin Trough 27.3 ug/mL (10.0-20.0) H* 09/28/18 09:38 Salicylates 4.4 mg/dL (2.8-20.0) 09/25/18 12:50 Urine Opiates Screen Negative (Negative) 09/25/18 12:00 Urine Methadone Screen Negative (Negative) 09/25/18 12:00 Acetaminophen < 2 ug/mL (10-30) L 09/25/18 12:50 Ur Barbiturates Screen Negative (Negative) 09/25/18 12:00 Ur Tricyclics Screen Positive (Negative) 09/25/18 12:00 Ur Amphetamines Screen Negative (Negative) 09/25/18 12:00 U Benzodiazepines Scrn Negative (Negative) 09/25/18 12:00 Urine Cocaine Screen Negative (Negative) 09/25/18 12:00 Ur THC Screen Positive (Negative) 09/25/18 12:00 Ethyl Alcohol < 3.0 mg/dL (<3) 09/25/18 12:50
[2018-09-29 23:45] VITALS: BP 128/74; PULSE 102; RESP 20; TEMP 36.3; O2SAT 98
[2018-09-30] MEDS: Ibuprofen 400 MG TAB PO ×3 (00:01→13:12)
[2018-09-30] MEDS: traMADol 50 MG TAB PO ×3 (00:05→22:27)
[2018-09-30] MEDS: Normal Saline Flush 10 ML SYR IVP ×6 (01:10→18:43)
[2018-09-30] MEDS: Acetaminophen 325 MG TAB PO ×4 (04:57→22:28)
[2018-09-30 07:26] VITALS: BP 120/78; PULSE 112; RESP 20; TEMP 36.5; O2SAT 99
[2018-09-30 07:29] LABS: Anion Gap 5.8 mmol/L (3-11); BUN 24 mg/dL (7-18); CO2 29.2 mmol/L (21.0-32.0); CREATININE 0.91 mg/dL (0.55-1.02); Chloride 105 mmol/L (98-107); Glucose 105 mg/dL (70-100); Magnesium 1.9 mg/dL (1.8-2.4); Potassium 4.1 mmol/L (3.5-5.1); Sodium 140 mmol/L (136-145)
[2018-09-30 07:30] LABS: Absolute Basophil Count 0.02 k/cumm (0.0-0.2); Absolute Eosinophil Count 0.02 k/cumm (0.0-0.7); HCT 37.8 % (36.0-46.0); HGB 12.4 g/dL (12.0-15.5); Mean Corp. HGB Concentration 32.8 g/dL (32.0-36.0); Mean Corpuscular Hemoglobin 30.2 pg (27.0-33.0); Mean Platelet Volume 10.7 fL (8.0-11.0); Platelet Count 116 x1000/uL (130-400); RBC 4.11 m/cumm (4.00-5.20); RBC Distribution Width 13.8 % (11.7-14.6); White Blood Cell Count 2.11 k/cumm (4.4-10.8)
[2018-09-30] MEDS: clonazePAM 1 MG TAB PO ×2 (07:53→22:28)
[2018-09-30] MEDS: Lansoprazole 30 MG CAPCR PO (07:53)
[2018-09-30] MEDS: hydrOXYzine HCL 50 MG TAB 100 MG PO ×2 (07:53→22:28)
[2018-09-30] MEDS: Pregabalin 100 MG CAP 200 MG PO ×2 (07:53→22:27)
[2018-09-30] MEDS: Magnesium Chloride 64 MG TABCR PO (07:53)
[2018-09-30 08:21] LABS: Absolute Lymphocyte Count 1.52 k/cumm (1.2-3.4); Absolute Monocyte Count 0.11 k/cumm (0.11-0.7); Absolute Neutrophil Count 0.44 k/cumm (1.2-6.7); Atypical Lymphocytes % 4
[2018-09-30 08:22] LABS: Diff Comment Manual Differential; RBC Morphology Normal
--- NOTE | 2018-09-30 09:56 | PT.INTREAT ---
Date of service: 09/30/18 Time of Service: 09:30 PT Notes Inpatient Physical Therapy Treatment Note [facility] Date: 09/30/18 PRECAUTIONS:Fall, standard SUBJECTIVE: Joe states that she is having a very difficult time. At initiation of session, she is standing at the entrance of her room, unilateral UE support to WW, yelling toward the nurses station. She states that she does not feel that anyone understands her condition and that she feels like she's dying. Patient also reports that she had previously been w/c bound, she estimates for 5 years prior to 2016. She's now working with her PCP to obtain a new chair, stating that knows she can't fall anymore. Later in the session she reports that she does not intend to get a w/c, and that she doesn't care if she falls again. OBJECTIVE: PAIN: 05/14 bilat hands BED MOBILITY/TRANSFERS Supine-sit: supervision Sit-supine: supervision Sit-stand: supervision Stand-sit: supervision Bed-Chair: FWW with CG, poor safety awareness with need for frequent cues for FWW management GAIT Assistive Device: FWW Weight bearing: Full Assist: CG Distance: 20'x2 Deviation: significant ataxia, buckling of the RLE, poor safety awareness THEREX: Patient was instructed in seated and supine exercises, within her pain tolerance. She tolerates limited LE and core stabilization exercises, with need for frequent cues and redirection. ASSESSMENT: Patient continues to be high fall risk, with significant anxiety during today's session. She is subsequently only able to participate in PT intervention to a limited degree, and with little to no carryover in terms of safety awareness. PLAN: Continue attempts to progress strengthening. TREATMENT CODE/TIME: 25 minutes (9:30-9:55), [id number]
[2018-09-30] MEDS: Enoxaparin 40 MG/0.4 ML SYR SC (10:03)
[2018-09-30] MEDS: Magnesium Oxide 400 MG TAB PO (10:03)
--- NOTE | 2018-09-30 10:05 | PTTR_ITS ---
Date of service: 09/30/18 Time of Service: 09:30 PT Notes Inpatient Physical Therapy Treatment Note [facility] Date: 09/30/18 PRECAUTIONS:Fall, standard SUBJECTIVE: Joe states that she is having a very difficult time. At initiatio n of session, she is standing at the entrance of her room, unilateral UE support to WW, yelling toward the nurses station. She states that she does not feel that anyone understands her condition and that she feels like she's dying. Patient also reports that she had previously been w/c bound, she estimates for 5 years prior to 2016. She's now working with her PCP to obtain a new chair, stating that knows she can't fall anymore. Later in the session she reports that she does not intend to get a w/c, and that she doesn't care if she falls again. OBJECTIVE: PAIN: 10/10 bilat hands BED MOBILITY/TRANSFERS Supine-sit: supervision Sit-supine: supervision Sit-stand: supervision Stand-sit: supervision Bed-Chair: FWW with CG, poor safety awareness with need for frequent cues for FWW management GAIT Assistive Device: FWW Weight bearing: Full Assist: CG Distance: 20'x2 Deviation: significant ataxia, buckling of the RLE, poor safety awareness THEREX: Patient was instructed in seated and supine exercises, within her pain tolerance. She tolerates limited LE and core stabilization exercises, with need for frequent cues and redirection. ASSESSMENT: Patient continues to be high fall risk, with significant anxiety during today's session. She is subsequently only able to participate in PT intervention to a limited degree, and with little to no carryover in terms of safety awareness. PLAN: Continue attempts to progress strengthening. TREATMENT CODE/TIME: 25 minutes (9:30-9:55), [id number]
--- NOTE | 2018-09-30 10:27 | NUR.NOTE ---
Nursing Note: 1005 Pt given medication for pain, Pt requesting medication for anxiety. Pt states she is going outside to smoke whether we (the staff) like it or not. Tried to explain to Pt that she is on protective precautions now but Pt does not listen and talks over this nurse. Offered Pt both nicotine patch and nicotrol inhaler, both of which were refused. CC aware.
--- NOTE | 2018-09-30 11:08 | OT.INTREAT ---
Date of service: 09/30/18 Time of Service: 10:05 Occupational Therapy Notes Occupational Therapy Inpatient Treatment Note Date: 09/30/18 PRECAUTIONS: Fall, Contact SUBJECTIVE: Pt was sitting on side of bed when OT arrived. She was upset with nursing staff but then later reported she has had great care at [facility]. She was talking about multiple different situations at once. She states she is upset and feels that she is going to lose all of her fingers. OBJECTIVE: PAIN:c/o pain in (B) hands which pt would yell My hands hurt so bad then pt would change the subject. FUNCTIONAL MOBILITY Rolling L/R: S Sit-stand: S with poor safety awareness Stand-sit: S with poor safety awareness Bed-Chair: S with poor safety awareness required mod vc for use of walker as pt would start to walk without it Chair-bed: S with poor safety awareness required mod vc for use of walker as pt would start to walk without it BATHING: Upper Body: Standing at sink with S as pt would not allow gait belt or CGA she demonstrated poor safety awareness with increased need for vc for use of walker. Pt demonstrated poor body mechanics and increased safety concern. She washed her hands (palms only) 6x during OT session. DRESSING: Lower Extremity: Sitting on bed pt was able to (I) don and doff (B) socks but required mod vc to do so. ASSESSMENT/PLAN: Pt was only able to perform limited part of OT session as she refuses ADL care. She is anxious and rocking back and forth through most of OT session. She does not demonstrate safe functional mobility for ADLs or safety awareness. She has decreased (I) in ADLs due to safety in functional mobility as well as decreased carry over in education and trained techniques provided to her. OT feels that pt would benefit from motorized wheelchair to increase pts safety and (I) in ADL routines. TREATMENT CODES/TIME: [id number], 25 minutes (08:46) Neli Mata OTR/[facility]
--- NOTE | 2018-09-30 11:21 | OTTR_ITS ---
Date of service: 09/30/18 Time of Service: 10:05 Occupational Therapy Notes Occupational Therapy Inpatient Treatment Note Date: 09/30/18 PRECAUTIONS: Fall, Contact SUBJECTIVE: Pt was sitting on side of bed when OT arrived. She was upset with nursing staff but then later reported she has had great care at [facility]. She was talking about multiple different situations at once. She states she is upset and feels that she is going to lose all of her fingers. OBJECTIVE: PAIN:c/o pain in (B) hands which pt would yell My hands hurt so bad then pt would change the subject. FUNCTIONAL MOBILITY Rolling L/R: S Sit-stand: S with poor safety awareness Stand-sit: S with poor safety awareness Bed-Chair: S with poor safety awareness required mod vc for use of walker as pt would start to walk without it Chair-bed: S with poor safety awareness required mod vc for use of walker as pt would start to walk without it BATHING: Upper Body: Standing at sink with S as pt would not allow gait belt or CGA she demonstrated poor safety awareness with increased need for vc for use of walker. Pt demonstrated poor body mechanics and increased safety concern. She washed her hands (palms only) 6x during OT session. DRESSING: Lower Extremity: Sitting on bed pt was able to (I) don and doff (B) socks but required mod vc to do so. ASSESSMENT/PLAN: Pt was only able to perform limited part of OT session as she refuses ADL care. She is anxious and rocking back and forth through most of OT session. She does not demonstrate safe functional mobility for ADLs or safety awareness. She has decreased (I) in ADLs due to safety in functional mobility as well as decreased carry over in education and trained techniques provided to her. OT feels that pt would benefit from motorized wheelchair to increase pts safety and (I) in ADL routines. TREATMENT CODES/TIME: [id number], 25 minutes (08:46) Neli Mata OTR/[facility]
--- NOTE | 2018-09-30 12:11 | NUR.NOTE ---
Nursing Note: 1200 This nurse entered Pt's room to administer noon time medication, Pt finally was able to reach her daughter on her cell phone. Pt requested this nurse provide information to daughter stating, I'm giving you permission to talk to her, go ahead. This nurse did not offer any information, just merely confirmed what Pt told daughter regarding low white blood cell counts. Pt and daughter asked what caused this, this nurse stated these questions would be better suited to the provider as they know the details of the Pt's present condition. This nurse agreed to take down daughter's phone number and pass it along to provider at earliest convenience. CC notified.
--- NOTE | 2018-09-30 12:55 | PDOC.CMPRO ---
- If Service Date Differs Date of service: 09/30/18 Time of Service: 12:55 Care Management Progress Note S/O: Joe is sitting up in her chair when this copywriter visits this morning, she came to the Care Management office with her FWW today to request a visit. Joe states that her daughter Elisabet is requesting an update from CM. CM attempted to call Elisabet ([phone]) and there was no answer, and CM was unable to leave a . CM called the below SNF's in regards to potential SNF placement for Joe. Joe states that she does not want to go to SNF when CM visits with her, and would like to facilitate Housing in [place]. CM explained that this is something that Joe would need to work on in regards to an apartment in [place]. CM notified Joe that she could return to her previous living situation, and discussed that she is also able to go to the [facility], or [facility] at time of DC. CM spoke with Kathy Duffy, [facility], in regards to the above, and to notify that Joe would be in need of assistance with obtaining a motorized w/c at time of DC per Cesia, PT,. HARISH also spoke with Kary Shanks, whom states that the only bed that she has available is on the 3rd floor and is a short term bed. [place] [facility] [place] - No [facility] - [place] - No A: Joe is a 53 year old female with a significant history of Bipolar, depression, previous suicide attempts and multiple psychiatric admissions.Joe was admitted with SI which has since stabilized. She is now currently inpatient for cellulitis and abscess of right hand r/t recent frostbite. P: Joe will be discharged to her previous living arrangement vs. meet with economic services at time of DC. She will F/U with PCP and plan of care as prescribed. Joe will also F/U with outpatient PT, as well as PCP in regards to a motorized w/c.
[2018-09-30] MEDS: Cephalexin 500 MG CAP 1000 MG PO ×2 (13:12→21:00)
--- NOTE | 2018-09-30 13:44 | CMPROGNOTE_ITS ---
- If Service Date Differs Date of service: 09/30/18 Time of Service: 12:55 Care Management Progress Note S/O: Joe is sitting up in her chair when this residential mortgage underwriter visits this morning, she came to the Care Management office with her FWW today to request a visit. Joe states that her daughter Elisabet is requesting an update from CM. CM attempted to call Elisabet ([phone]) and there was no answer, and CM was unable to leave a . CM called the below SNF's in regards to potential SNF placement for Joe. Joe states that she does not want to go to SNF when CM visits with her, and would like to facilitate Housing in [place]. CM explained that this is something that Joe would need to work on in regards to an apartment in [place]. CM notified Joe that she could return to her previous living situation, and discussed that she is also able to go to the [facility], or [facility] at time of DC. CM spoke with Kathy Duffy, [facility], in regards to the above, and to notify that Joe would be in need of assistance with obtaining a motorized w/c at time of DC per Cesia, PT,. HARISH also spoke with Kary Shanks, whom states that the only bed that she has available is on the 3rd floor and is a short term bed. [place] [facility] [place] - No [facility] - [place] - No A: Joe is a 53 year old female with a significant history of Bipolar, depression, previous suicide attempts and multiple psychiatric admissions.Joe was admitted with SI which has since stabilized. She is now currently inpatient for cellulitis and abscess of right hand r/t recent frostbite. P: Joe will be discharged to her previous living arrangement vs. meet with economic services at time of DC. She will F/U with PCP and plan of care as prescribed. Joe will also F/U with outpatient PT, as well as PCP in regards to a motorized w/c.
--- NOTE | 2018-09-30 14:41 | NUR.NOTE ---
Nursing Note: 1313 Pt complaining of pain, this nurse brought in 650 mg Tylenol, 50 mg Tramadol, and 400 mg Ibuprofen in addition to 1400 dose of PO abx and 100 mg of atarax. Pt refused the atarax, stating I know what that stuff is it doesn't help, it doesn't calm me down. Pt also initially refused Tylenol, Tramadol, Ibuprofen stating That stuff doesn't work for me anyway, why should I take it? This nurse explained to Pt that taking these medications may help alleviate some nerve pain associated with the frostbite. Pt agreeable to taking abx and pain medications, but refused atarax. Provider put in order for gabapentin back-timed for this morning, but Pt refused saying I can't take that, it makes me swell. Pt then proceeded to ask for other means of medication including that medication that starts with an L that they gave me yesterday to calm down, more Lyrica, and methadone. CC aware.
--- NOTE | 2018-09-30 16:18 | PGE_ITS ---
Date of Service Date of service: 09/30/18 Time of Service: 16:14 Assessment and Plan (1) Cellulitis and abscess of hand: Current visit: Yes Status: Acute Cellulitis to bilateral hands with abscess to right status post I&D. Culture grew MSSA. Antibiotics changed to IV cefazolin yesterday. Transition to oral Keflex today, 1 g 3 times daily. Will need to complete a 14-day course for soft tissue infection. Dr. Merlos, orthopedics, has been following and agrees with transition to oral antibiotics today. Low-dose gabapentin added today for increased pain control. He will follow-up with her in the clinic for an elective amputation of fingertips. (2) Abscess of right hand: Current visit: Yes Status: Acute As above. Continue Keflex, will need to complete a 14-day course. (3) Frostbite of both hands: Current visit: Yes Status: Acute As above with cellulitis bilateral hands and abscess to right hand status post incision and drainage. (4) Bipolar disorder: Current visit: Yes Status: Chronic Appears anxious today. Atarax increased to 3 times daily today. (5) Psychogenic nonepileptic seizure: Current visit: Yes Status: Chronic Reported having seizure last night after she was being told that she cannot go outside to smoke. She received Ativan x1. Continue Klonopin 1 mg twice daily. Continue to monitor. (6) On stimulant medication: Current visit: Yes Status: Chronic Chronically on Adderall for ADHD. (7) DVT prophylaxis: Current visit: Yes Status: Acute Subcutaneous Lovenox. (8) Discharge planning issues: Current visit: Yes Status: Acute She is a full code. PT initially recommended rehab due to her high risk for falls. She has been ambulating in the ma with a walker. Plan to discuss with PT to determine if she has progressed enough to not require rehab prior to returning home. Basis discussed with Dr. Pena who is in agreement. Subjective Interval history since last seen: Joe Peña is a 53-year-old female with a past medical history significant for anxiety, bipolar disorder, mood disorder, psychogenic nonepileptic seizures, hepatitis C, endocarditis, tobacco abuse, who is currently being treated for cellulitis of bilateral hands, and abscess of right hand status post frostbite. She has been followed by orthopedics, Dr. Merlos recommend switching from IV to oral antibiotics with plans to follow-up with her in the future as an outpatient for possible elective amputation of fingertips. Joe appears anxious today. She reports pain in her hands, she is asking for methadone, she states methadone is the only thing that works for me. She is also demanding to go outside and smoke. We discussed improved management of her anxiety and nicotine replacement to help with her cravings. She is adamant that she wants to smoke and that she is going to leave AMA. She denies any other concerns, no shortness of breath, cough, chest pain, pressure, palpitations, nausea, vomiting, diarrhea. She is very focused on going outside to smoke and initiating methadone for her pain. She reports that she feels tingling and pins and needles in her fingertips and that her fingers are numb. Exam Narrative Exam Narrative: General: Thin, chronically ill-appearing female, alert and oriented x3. HEENT: Normocephalic, atraumatic, poor dentition, mucous membranes moist. Pup ils equal and round. Neck: Supple, no JVD. Respiratory: Respirations even and unlabored, lung sounds clear to auscultation throughout, no rales or wheeze. Cardioascular: Heart has regular rate and rhythm, no murmur appreciated. Abdomen: Normoactive bowel sounds, soft, nontender on palpation. Extremities: Bilateral hands with edematous, erythematous fingers, left hand with more swelling then the left. Erythema extends across the distal aspect of the palm bilaterally. DuoDERM's on fingertips. Fingers not especially warm to touch. Right lower extremity with trace edema. Pedal pulses palpable bilaterally. Psychiatric: Appears cheerful, appears anxious, talking incessantly, moving from subject to subject with flight of ideas, labile mood. Objective Objective Clinical Data: Abnormal lab results 09/30/18 09/30/18 Range/Units 06:12 06:12 WBC 2.11 L (4.4-10.8) k/cumm Plt Count 116 L (130-400) x1000/uL Absolute Neutrophils 0.44 L* (1.2-6.7) k/cumm BUN 24 H (7-18) mg/dL Glucose 105 H (70-100) mg/dL Vital Signs Temperature 36.5 C 09/30/18 07:26 Temperature Source Tympanic 09/30/18 07:26 Pulse 112 H 09/30/18 07:26 Pulse Rhythm Regular 09/30/18 07:50 Pulse 104 H 09/25/18 16:31 Respiratory Rate 20 09/30/18 07:26 Respiratory Effort Non-Labored 09/30/18 07:50 Respiratory Depth Normal 09/30/18 07:50 Respiratory Pattern Normal 09/30/18 07:50 Blood Pressure 120/78 09/30/18 07:26 Blood Pressure Mean 73 09/25/18 16:31 Pulse Oximetry 99 09/30/18 07:26 Oxygen Delivery Method Room Air 09/30/18 07:26 Oxygen Flow Rate 0 09/30/18 07:26 Pain Level 10 09/30/18 15:06 Intake & Output 09/29/18 09/30/18 09/30/18 23:59 11:59 23:59 Intake Total 1044.666 / 1784.666 370 / 620 250 / 620 Balance 1044.666 / 1784.666 370 / 620 250 / 620 Intake: IV 254.666 / 504.666 120 / 130 10 / 130 Oral 790 / 1280 250 / 490 240 / 490 Other: Urine Appearance Cloudy Comment Urine not seen, voiding independently and flushing. Voiding Methods Toilet Toilet Laboratory Results WBC 2.11 k/cumm (4.4-10.8) L 09/30/18 06:12 RBC 4.11 m/cumm (4.00-5.20) 09/30/18 06:12 Hgb 12.4 g/dL (12.0-15.5) 09/30/18 06:12 Hct 37.8 % (36.0-46.0) 09/30/18 06:12 MCV 92.0 fL (80-95) 09/30/18 06:12 MCH 30.2 pg (27.0-33.0) 09/30/18 06:12 MCHC 32.8 g/dL (32.0-36.0) 09/30/18 06:12 RDW 13.8 % (11.7-14.6) 09/30/18 06:12 Plt Count 116 x1000/uL (130-400) L 09/30/18 06:12 MPV 10.7 fL (8.0-11.0) 09/30/18 06:12 Immature Gran % 0.0 09/30/18 06:12 Neutrophils % 21.0 09/30/18 06:12 Lymphocytes % 68.0 09/30/18 06:12 Atypical Lymphs % 4 09/30/18 06:12 Monocytes % 5.0 09/30/18 06:12 Eosinophils % 1.0 09/30/18 06:12 Basophils % 1.0 09/30/18 06:12 Absolute Neutrophils 0.44 k/cumm (1.2-6.7) L* 09/30/18 06:12 Absolute Lymphocytes 1.52 k/cumm (1.2-3.4) 09/30/18 06:12 Absolute Monocytes 0.11 k/cumm (0.11-0.7) 09/30/18 06:12 Absolute Eosinophils 0.02 k/cumm (0.0-0.7) 09/30/18 06:12 Absolute Basophils 0.02 k/cumm (0.0-0.2) 09/30/18 06:12 Differential Comment Manual differential 09/30/18 06:12 RBC Morphology Normal 09/30/18 06:12 Sodium 140 mmol/L (136-145) 09/30/18 06:12 Potassium 4.1 mmol/L (3.5-5.1) 09/30/18 06:12 Chloride 105 mmol/L (98-107) 09/30/18 06:12 Carbon Dioxide 29.2 mmol/L (21.0-32.0) 09/30/18 06:12 Anion Gap 5.8 mmol/L (3-11) 09/30/18 06:12 BUN 24 mg/dL (7-18) H 09/30/18 06:12 Creatinine 0.91 mg/dL (0.55-1.02) 09/30/18 06:12 Estimated GFR/1.73 m2 >= 60.00 (mL/min/1.73m2) 09/30/18 06:12 Glucose 105 mg/dL (70-100) H 09/30/18 06:12 Calcium 9.0 mg/dL (8.5-10.1) 09/30/18 06:12 Magnesium 1.9 mg/dL (1.8-2.4) 09/30/18 06:12 Total Bilirubin 0.3 mg/dL (0.2-1.0) 09/25/18 15:19 AST 14 U/L (15-37) L 09/25/18 15:19 ALT 19 U/L (12-78) 09/25/18 15:19 Alkaline Phosphatase 40 U/L (46-116) L 09/25/18 15:19 Total Protein 6.0 g/dL (6.4-8.2) L 09/25/18 15:19 Albumin 2.4 g/dL (3.4-5.0) L 09/25/18 15:19 TSH 1.39 uIU/mL (0.358-3.74) 09/25/18 12:50 Urine Color Yellow (Yellow) 09/26/18 12:50 Urine Clarity Clear 09/26/18 12:50 Urine pH 7.0 (5-8) 09/26/18 12:50 Ur Specific Eldred 1.020 (1.005-1.025) 09/26/18 12:50 Urine Protein Negative mg/dL (Negative) 09/26/18 12:50 Urine Ketones Negative mg/dL (Negative) 09/26/18 12:50 Urine Blood Negative (Negative) 09/26/18 12:50 Urine Nitrite Negative (Negative) 09/26/18 12:50 Urine Bilirubin Negative (Negative) 09/26/18 12:50 Urine Urobilinogen 0.2 EU/dL (Up TO 0.2) 09/26/18 12:50 Ur Leukocyte Esterase Negative (Negative) 09/26/18 12:50 Urine Glucose Negative mg/dL (Negative) 09/26/18 12:50 Vancomycin Trough 27.3 ug/mL (10.0-20.0) H* 09/28/18 09:38 Salicylates 4.4 mg/dL (2.8-20.0) 09/25/18 12:50 Urine Opiates Screen Negative (Negative) 09/25/18 12:00 Urine Methadone Screen Negative (Negative) 09/25/18 12:00 Acetaminophen < 2 ug/mL (10-30) L 09/25/18 12:50 Ur Barbiturates Screen Negative (Negative) 09/25/18 12:00 Ur Tricyclics Screen Positive (Negative) 09/25/18 12:00 Ur Amphetamines Screen Negative (Negative) 09/25/18 12:00 U Benzodiazepines Scrn Negative (Negative) 09/25/18 12:00 Urine Cocaine Screen Negative (Negative) 09/25/18 12:00 Ur THC Screen Positive (Negative) 09/25/18 12:00 Ethyl Alcohol < 3.0 mg/dL (<3) 09/25/18 12:50
[2018-09-30 18:20] VITALS: BP 157/77; PULSE 107; RESP 20; TEMP 36.6; O2SAT 99
[2018-09-30] MEDS: LORazepam 2 MG/ML VIAL 1 MG IVP (18:42)
[2018-09-30] MEDS: Cyclobenzaprine 10 MG TAB PO (22:27)
[2018-09-30] MEDS: Gabapentin 300 MG CAP PO (22:28)
[2018-09-30 22:35] VITALS: PULSE 99; RESP 16; TEMP 37; O2SAT 95
[2018-10-01] MEDS: Lansoprazole 30 MG CAPCR PO (06:44)
[2018-10-01] MEDS: traMADol 50 MG TAB PO ×2 (06:44→13:27)
[2018-10-01] MEDS: Acetaminophen 325 MG TAB PO ×2 (06:44→13:26)
[2018-10-01 07:45] VITALS: BP 118/69; PULSE 91; RESP 20; TEMP 36.7; O2SAT 98
[2018-10-01] MEDS: Normal Saline Flush 10 ML SYR IVP ×2 (08:37→09:58)
[2018-10-01] MEDS: Magnesium Chloride 64 MG TABCR PO (08:39)
[2018-10-01] MEDS: Pregabalin 100 MG CAP 200 MG PO (08:39)
[2018-10-01] MEDS: Cephalexin 500 MG CAP 1000 MG PO ×2 (08:39→13:26)
[2018-10-01] MEDS: clonazePAM 1 MG TAB PO (08:39)
[2018-10-01] MEDS: Ibuprofen 400 MG TAB PO ×2 (08:40→13:27)
[2018-10-01 10:13] LABS: Absolute Basophil Count 0.01 k/cumm (0.0-0.2); Absolute Eosinophil Count 0.04 k/cumm (0.0-0.7); Absolute Lymphocyte Count 1.29 k/cumm (1.2-3.4); Absolute Monocyte Count 0.15 k/cumm (0.11-0.7); Absolute Neutrophil Count 1.49 k/cumm (1.2-6.7); Basophils % 0.3; Eosinophils % 1.3; HCT 38.7 % (36.0-46.0); HGB 12.9 g/dL (12.0-15.5); Lymphocytes % 43.3; Mean Corp. HGB Concentration 33.3 g/dL (32.0-36.0); Mean Corpuscular Hemoglobin 30.4 pg (27.0-33.0); Mean Corpuscular Volume 91.1 fL (80-95); Mean Platelet Volume 10.5 fL (8.0-11.0); Neutrophils % 50.1; RBC 4.25 m/cumm (4.00-5.20); RBC Distribution Width 13.9 % (11.7-14.6); White Blood Cell Count 2.98 k/cumm (4.4-10.8)
[2018-10-01 10:17] LABS: Anion Gap 6.5 mmol/L (3-11); BUN 25 mg/dL (7-18); CO2 27.5 mmol/L (21.0-32.0); CREATININE 1.04 mg/dL (0.55-1.02); Chloride 104 mmol/L (98-107); Estimated GFR 55.87 (mL/min/1.73m2); Glucose 93 mg/dL (70-100); Magnesium 1.8 mg/dL (1.8-2.4); Sodium 138 mmol/L (136-145)
[2018-10-01 10:22] LABS: Diff Comment Diff Reviewed; Platelet Count 123 x1000/uL (130-400); RBC Morphology Normal
[2018-10-01] MEDS: Enoxaparin 40 MG/0.4 ML SYR SC (10:55)
--- NOTE | 2018-10-01 10:59 | OT.INTREAT ---
Date of service: 10/01/18 Time of Service: 07:40 Occupational Therapy Notes Occupational Therapy Inpatient Treatment Note Date: 10/01/18 PRECAUTIONS: Contact, fall SUBJECTIVE: Pt was lying in bed when OT arrived. She was agreeable to OT session and reports that she did not sleep well last night due to noise in the room next to her. She states that she just wants her hands to be better. OBJECTIVE: PAIN:9/10 pain in (B) digits on (B) hands. FUNCTIONAL MOBILITY Rolling L/R: (I) Supine-sit: S Sit-supine: S Sit-stand: S, FWW with poor safety awareness Stand-sit: S, FWW with poor safety awareness Bed-Chair: S, FWW with poor safety awareness Chair-bed: S, FWW with poor safety awareness BATHING: Standing at sink with FWW, S with poor safety awareness and pt does not feel that she requires (A) at this time- Upper Body: (I) washing (B) hands and face. Lower Body: NT as pt denies. DRESSING: Upper Extremity: (I) in sitting don and doffing personal robe Lower Extremity: Sitting in bed (I) don and doffing (B) socks and slippers, (I) pulling up shorts in the standing position with FWW, with S after toileting routine. GROOMING: Standing at sink with FWW pt was able to (I) brush her hair. She denies brushing teeth reporting she is waiting for her breakfast at this time. TOILETING: Device: Toilet Assist: (I) with toileting hygiene with decreased safety awareness ASSESSMENT/PLAN: Pt is demonstrating increased (I) in ADLs but presents with very poor safety awareness. She performs functional mobility for ADLs with vc for use of walker. Pt does not demonstrate her ADLs safely and she is very verbal and frequently yells about her pain throughout session. She is not receptive to vc and states multiple times throughout session that she is very smart and that multiple doctors have told her she is smart. Pt would benefit from continued skilled OT intervention for increased (I) in ADLs/IADLs at this time. TREATMENT CODES/TIME: 71015, 20 minutes (07:40) Neli Mata OTR/[facility]
--- NOTE | 2018-10-01 13:01 | NUR.NOTE ---
Nursing Note: MORTEZA Pickard was in the ma when pt was on the phone and walking back from care managers when pt told person on the phone that she was ready to commit suicide. MORTEZA reported it to PAT Valdez.
--- NOTE | 2018-10-01 13:37 | PT.INTREAT ---
Date of service: 10/01/18 Time of Service: 13:37 PT Notes 10/01/18 SUBJECTIVE: Joe stating she is not good today. She notes that her condition is never going to improve and she does not feel physical therapy is going to help her at this point. She notes that she is very agitated today. OBJECTIVE: Pt seated at EOB. Agreeable to PT treatment. TRANSFERS Sit to stand: S Stand to sit: S Sit to supine:S Supine to sit: S GAIT: Pt declines Therex: Pt performs strengthening exercises in supine and seated positions with constant cueing to complete task at hand. See flow sheet for specifics. ASSESSMENT: Pt only able to participate in PT to a limited degree today. She is agitated and is tearful often throughout treatment as she explains her history and injuries. PLAN: Continue current POC. Treatment time: 10:10-10:30. [id number] Brianna Leary PTA
--- NOTE | 2018-10-01 14:13 | PDOC.CMDIS ---
- If Service Date Differs Date of service: 10/01/18 Time of Service: 14:13 LACE Index Scoring Tool - Questions: Length of Stay (in days): 4 - 6 Acuity (Admit via E.D.?): Yes Comorbidities: Chronic Pulmonary Disease E.D. Visits: 8 - Answers: Total Score: 13 Risk of Readmission: High Risk Care Management Discharge Reason for Hospitalization: Suicidal Ideation Discharge Plan: Joe was treated for an infection in her hands due to frostbite. She was screened by [facility] on 10/01/18 as she was reporting SI to staff. [facility] met with Joe and she denied SI. met with Joe after [facility], and she was future thinking and planning for an appt with [facility] tomorrow 10/02. Joe states that she wants to move to [place], and has a contact in [place] for housing. Joe will DC to [employer] services today and transport via [facility] in regards to housing. Patient/Family Education Needs: Review DC instructions, any limitations, and discuss 'Ask Me Three' Services Needed at Discharge: Transportation (RCT)
--- NOTE | 2018-10-01 14:23 | CMDISCH_ITS ---
- If Service Date Differs Date of service: 10/01/18 Time of Service: 14:13 LACE Index Scoring Tool - Questions: Length of Stay (in days): 4 - 6 Acuity (Admit via E.D.?): Yes Comorbidities: Chronic Pulmonary Disease E.D. Visits: 8 - Answers: Total Score: 13 Risk of Readmission: High Risk Care Management Discharge Reason for Hospitalization: Suicidal Ideation Discharge Plan: Joe was treated for an infection in her hands due to frostbite. She was screened by [facility] on 10/01/18 as she was reporting SI to staff. [facility] met with Joe and she denied SI. met with Joe after [facility], and she was future thinking and planning for an appt with [facility] tomorrow 10/02. Joe states that she wants to move to [place], and has a contact in [place] for housing. Joe will DC to [employer] services today and transport via [facility] in regards to housing. Patient/Family Education Needs: Review DC instructions, any limitations, and discuss 'Ask Me Three' Services Needed at Discharge: Transportation (RCT)
--- NOTE | 2018-10-01 14:38 | DSE_ITS ---
Date of service: 10/01/18 Time of Service: 14:37 DS: Diagnosis Discharge Diagnosis (1) Cellulitis and abscess of hand: Status: Acute (2) Abscess of right hand: Status: Acute (3) Frostbite of both hands: Status: Acute (4) Bipolar disorder: Status: Chronic (5) Psychogenic nonepileptic seizure: Status: Chronic (6) On stimulant medication: Status: Chronic Discharge Plan Disposition Patient Disposition: HOME Condition: Stable Discharge Details Reason For Visit: DEPRESSION, SUICIDALITY, HYPERCALCEMIA Admit Date/Time: 09/27/18 08:46 Admit Provider: Angel Luis Rajan Attending Provider: Angel Luis Rajan Primary Care Provider: DebbiSujata dietrich [facility] Hospital Course: Joe Peña is a 53-year-old female with a past medical history significant for anxiety, bipolar disorder, mood disorder, psychogenic nonepileptic seizures, hepatitis C, endocarditis, tobacco abuse, who originally presented to the emergency department on 09/25/2018 with depression and expressing suicidal ideation. She reported that her plan was to either take a drug overdose or slit her wrists. She does have a history of previous suicide attempt by drug overdose. She was admitted to the med/surg floor and followed by mental health as they attempted to seek placement at a psychiatric facility. However, she was noted to have a mild leukocytosis and reported increased pain in her fingers on bilateral hands which were recently treated at [facility] for frostbite. Upon examination, she was found to have a visible fluid collection on the right hand and her fingers appeared more edematous and erythematous. Her transfer to a psychiatric facility was placed on hold pending treatment of her presumed cellulitis of bilateral hands and abscess of the right hand. She was seen by Dr. Merlos, orthopedics, who performed an incision and drainage of the abscess of the right hand. She was initially started on vancomycin and Zosyn IV. Her wound cultures grew MSSA, her antibiotics were changed at that time to IV cefazolin. The erythema and edema continued to improve. She was followed by orthopedics who agreed to transition to oral antibiotics with Keflex the day prior to her discharge. She continues to have erythema of bilateral fingers extending just into the distal aspect of her palms bilaterally. She has mild edema of the fingers on bilateral hands left greater than right. Her hands, however, appear markedly improved and pictures taken prior. She continues to report significant pain in bilateral hands. She will be discharged home with a prescription for pain medication to get her through until her follow-up appointment with her PCP. Unfortunately, Dr. Merlos has expressed concern that she may need to have partial amputation of some fingertips. This would be on an elective basis, he will follow up with her as an outpatient. Of note, she was found to have neutropenia the day prior to her discharge with an ANC of 440. She was placed on protective precautions. Her ANC improved to 1490 the following day. She has a long history of leukopenia and intermittent neutropenia. She is followed by Hematology at [facility], where there has been discussion about bone marrow biopsy. She is scheduled to follow up with Hematology as an outpatient. On 09/27/2018, 2 days after her initial presentation she was again seen by mental health. At that time, she denied suicidal ideation and was removed from suicide precautions. On the day of discharge, she began to again verbalize thoughts of self-harm. Another mental health consult was placed. She continued to deny suicidal ideation and mental health did not feel that she was at risk for self harm. She is discharged home with close mental health follow up in place. She will see a provider at [facility] in [place] the day following discharge, she was provided with enough Clonazepam and Adderall to get her through to her appointment tomorrow. Of note, Joe has a history of psychogenic nonepileptic seizures. She had 2 reported seizures while here at the hospital that were treated with Ativan. At the conclusion of the seizures, she had full recollection of the events that had occurred immediately after, she had no loss of urine or bowel or any other findings to suggest an epileptic seizure. She has been scheduled to follow up with Dr. Merlos, orthopedics, her PCP, mental health and hematology. Home Meds and New Rx's Prescriptions: New clonazepam 1 mg Tablet 1 mg PO BID Qty: 2 RF: 0 hydroxyzine HCl 50 mg Tablet 100 mg PO TID Qty: 12 RF: 0 tramadol 50 mg Tablet 50 mg PO Q6H PRN PRNQty: 12 RF: 0 dextroamphetamine-amphetamine [Adderall XR] 20 mg Capsule,Extended Release 24hr 20 mg PO TID@0600,1200,1800 Qty: 3 RF: 0 cephalexin 500 mg Capsule 1,000 mg PO TID Qty: 34 RF: 0 ibuprofen 400 mg Tablet 400 mg PO Q4H PRN PRNQty: 0 RF: 0 gabapentin 300 mg Capsule 300 mg PO BID Qty: 14 RF: 0 Asmanex Twisthaler 220 mcg (14 doses) Aerosol Powdr Breath Activated 2 puff Inhalation BID PRN PRNQty: 0 RF: 0 Continued acetaminophen [Arthritis Pain Relief (acetam)] 650 MG tablet extended release 650 mg PO Q8H PRN RF: 0 lansoprazole 30 MG capsule,delayed release(DR/EC) 30 mg PO DAILY Qty: 90 RF: 3 dextroamphetamine-amphetamine [Adderall XR] 20 MG capsule,extended release 24hr 15 mg PO BID RF: 0 SHERIN Ankle Brace 1 EACH misc 1 ea Miscellaneous DAILY Qty: 1 RF: 0 promethazine 25 MG tablet 25 mg PO TID PRNQty: 90 RF: 11 spironolactone 25 MG tablet 25 mg PO DAILY Qty: 90 RF: 3 nabumetone 500 MG tablet 500 mg PO DAILY Qty: 90 RF: 3 cholecalciferol (vitamin D3) 1,000 UNIT tablet 1,000 unit PO DAILY Qty: 90 RF: 3 short walking boot 1 u Miscellaneous ONCE Qty: 1 RF: 0 cetirizine 10 MG tablet 10 mg PO BID Qty: 180 RF: 3 Lyrica 100 MG capsule 100 mg PO BID Qty: 56 RF: 5 furosemide 40 MG tablet 40 mg PO DAILY Qty: 90 RF: 1 ProAir HFA 8.5 GM HFA aerosol inhaler 2 puff Inhalation Q4H PRN Qty: 5 RF: 0 Flovent HFA 12 GM HFA aerosol inhaler 110 mcg Inhalation prn bid Qty: 5 RF: 0 Multi 1 EACH tablet 1 ea PO DAILY Qty: 90 RF: 1 Boost 237 ML liquid 237 ml PO AC & HS PRNQty: 120 RF: 3 polyethylene glycol 3350 [Miralax] 17 gram Powder In Packet 17 g PO DAILY PRNRF: 0 calcium carbonate 600 mg calcium (1,500 mg) Tablet 600 mg PO BID RF: 0 diclofenac potassium 50 mg Tablet 1 tab PO BID RF: 0 Discontinued clonazepam [Klonopin] 1 mg Tablet 1 mg PO BID RF: 0 Discharge Instructions Instructions: Frostbite (DC) Additional Instructions: Take you antibiotics until they are gone. We have provided you with medication to get you through to your appointments. Follow up with Hematology as scheduled. Follow up with Dr. Merlos for your fingers. Follow up with [facility] as scheduled. Follow up with your PCP. Take care! Stand Alone Forms: Nursing Discharge Form Referrals: Sujata Werner [Primary Care Provider] - 10/03/18 11:25 am Steve Walters [ [facility] STAFF PHYSICIAN] - 10/10/18 1:15 pm (Sales Team Manager 3K for lab work then an appointment with Dr. Walters at 2:30) Pio Merlos MD [ [facility] STAFF PHYSICIAN] - 10/22/18 1:15 pm Activity:: Activity as Tolerated Equipment/Supplies:: No Equipment Needed Diet:: As Tolerated Discharge Orders Discharge Orders: Discharge Order (Routine); Ordered 10/01/18 Ordered By: Nadiya Davis Discharge Data Discharge Date/Time-TO BE ENTERED AT DEPARTURE: 10/01/18 15:31 Exam Narrative Exam Narrative: General: Thin, chronically ill-appearing female, alert and orie nted x3. HEENT: Normocephalic, atraumatic, poor dentition, mucous membranes moist. Pupils equal and round. Neck: Supple, no JVD. Respiratory: Respirations even and unlabored, lung sounds clear to auscultation throughout, no rales or wheeze. Cardioascular: Heart has regular rate and rhythm, no murmur appreciated. Abdomen: Normoactive bowel sounds, soft, nontender on palpation. Extremities: Bilateral hands with edematous, erythematous fingers, left hand with more swelling then the right. Erythema extends across the distal aspect of the palm bilaterally. DuoDERM's on fingertips. Fingers appropriately warm to touch. She is able to make a fist, she is lacking only the terminal 5-10 degrees. Right lower extremity with trace edema. Pedal pulses palpable bilaterally. Psychiatric: Appears tearful at times, anxious, talking incessantly, moving from subject to subject with flight of ideas, labile mood. DS: Data Vitals/I&O Vitals and I&O: Vital Signs Temperature 36.7 C 10/01/18 07:45 Temperature Source Tympanic 10/01/18 07:45 Pulse 91 H 10/01/18 07:45 Pulse Rhythm Regular 10/01/18 10:00 Pulse 104 H 09/25/18 16:31 Respiratory Rate 20 10/01/18 07:45 Respiratory Effort Non-Labored 10/01/18 10:00 Respiratory Depth Normal 10/01/18 10:00 Respiratory Pattern Normal 10/01/18 10:00 Blood Pressure 118/69 10/01/18 07:45 Blood Pressure Mean 73 09/25/18 16:31 Pulse Oximetry 98 10/01/18 07:45 Oxygen Delivery Method Room Air 10/01/18 07:45 Oxygen Flow Rate 0 10/01/18 07:45 Pain Level 10 10/01/18 13:27 Comment 10/01/18 05:14 Intake & Output 09/30/18 10/01/18 10/01/18 23:59 11:59 23:59 Intake Total 500 / 870 330 / 330 Balance 500 / 870 330 / 330 Intake: IV 20 / 140 30 / 30 Oral 480 / 730 300 / 300 Other: Comment pt gets up AD NORM to void. pt voiding independenty in the toilet Voiding Methods Toilet Toilet Completed studies during hospitalization [Text1]: 09/26/18: PORTABLE AP CHEST: Note is made of proximal humeral deformity on the right as noted on previous examinations. The heart is not enlarged. The lungs are clear with changes of COPD and scarring. CONCLUSION: No evidence of acute disease. Labs on day of discharge: Labs from last 24 hours 10/01/18 10/01/18 09:55 09:55 WBC 2.98 L D RBC 4.25 Hgb 12.9 Hct 38.7 MCV 91.1 MCH 30.4 MCHC 33.3 RDW 13.9 Plt Count 123 L MPV 10.5 Immature Gran % 0.0 Neutrophils % 50.1 Lymphocytes % 43.3 Monocytes % 5.0 Eosinophils % 1.3 Basophils % 0.3 Absolute Neutrophils 1.49 Absolute Lymphocytes 1.29 Absolute Monocytes 0.15 Absolute Eosinophils 0.04 Absolute Basophils 0.01 Differential Comment Diff reviewed RBC Morphology Normal Sodium 138 Potassium 5.0 D Chloride 104 Carbon Dioxide 27.5 Anion Gap 6.5 BUN 25 H Creatinine 1.04 H Estimated GFR/1.73 m2 55.87 Glucose 93 Calcium 9.0 Magnesium 1.8 PFSH Medical History Tobacco dependence syndrome (Chronic) Inactive tuberculosis (Inactive) Drug abuse (Inactive) Alcohol abuse (Inactive) Chronic hepatitis (Chronic) Bipolar disorder (Chronic) Endocarditis (Resolved) Methicillin resistant Staphylococcus aureus infection (Resolved) Cervical spondylosis (Chronic) Lichen simplex chronicus (Resolved) Hepatitis C (Chronic) Gastroesophageal reflux disease (Chronic) Asthma (Chronic) Osteomyelitis (Resolved) Thrombocytopenia (Resolved 08/23/16) Staphylococcal infection of skin (Resolved 11/07/16) Sleep disturbance (Resolved 08/23/16) Psychogenic nonepileptic seizure (Chronic 11/27/16) Paresthesia (Chronic 08/23/16) Osteomyelitis (Resolved 07/09/14) On stimulant medication (Chronic 08/20/17) Mood disorder (Chronic 08/23/16) MRSA (methicillin resistant Staphylococcus aureus) (Resolved 07/09/14) Lichen simplex chronicus (Resolved 07/16/14) History of intravenous drug use in remission (Resolved 07/09/14) History of endocarditis (Resolved 07/09/14) GERD (gastroesophageal reflux disease) (Chronic 07/09/14) Depression (Chronic 08/23/16) Congenital connective tissue disorder (Chronic) Cirrhosis of liver without ascites (Chronic 11/27/16) Chronic pain syndrome (Chronic 10/03/16) Chronic nausea (Chronic 07/09/14) Cervical spondylosis (Chronic 07/09/14) COPD (chronic obstructive pulmonary disease) (Chronic 08/23/16) Attention deficit disorder (ADD) in adult (Chronic) Alcohol abuse (Resolved 07/09/14) Adjustment disorder with mixed anxiety and depressed mood (Chronic 08/27/17) Acute allergic rhinitis due to pollen (Chronic 05/29/17) Polysubstance dependence including opioid type drug with complication, continuous use (Resolved) Chronic osteomyelitis of right shoulder region (Chronic) Endometriosis (Resolved) Surgical History Colonoscopy - MAC (Resolved) Debridement, Bone (Resolved) Abdominal hysterectomy (Resolved 05/05/03) Diagnostic Laproscopy (Resolved) EGD - MAC (Resolved ~2001) Family History Mother Diabetes Brother Diabetes Other Neoplasm Social History Smoking and Tabacco status: Current-Occasional
--- NOTE | 2018-10-01 15:36 | PT.INDS ---
Date of service: 10/01/18 Time of Service: 15:36 PT Notes Date: 10/01/18 Referring Doctor: Dianne Peck NP PT Orders: PT CONSULT: weakness, hand infection Precautions: Fall, standard Treatment Dates: 09/29/18 - 10/01/18 NON-TREATMENT NOTE. THIS DOCUMENT SERVES A SUMMARY OF CARE. Patient Profile/Admitting Diagnosis: Patient admitted 09/26/2018 for psychiatric disorder. She was also found to have cellulitis of the right hand secondary to frostbite; she underwent I&D performed by Dr. Merlos on 09/26. She suffered a fall in her hospital room 224, and PT consult was requested to assess mobility. She was seen for 3 PT sessions over the course of 3 days, with limited participation due to levels of anxiety and need for redirection. PMHX: Tobacco dependence syndrome (Chronic) Inactive tuberculosis (Inactive) Drug abuse (Inactive) Alcohol abuse (Inactive) Chronic hepatitis (Chronic) Bipolar disorder (Chronic) Endocarditis (Resolved) Methicillin resistant Staphylococcus aureus infection (Resolved) Cervical spondylosis (Chronic) Lichen simplex chronicus (Resolved) Hepatitis C (Chronic) Gastroesophageal reflux disease (Chronic) Asthma (Chronic) Osteomyelitis (Resolved) Thrombocytopenia (Resolved 08/23/16) Staphylococcal infection of skin (Resolved 11/07/16) Sleep disturbance (Resolved 08/23/16) Psychogenic nonepileptic seizure (Chronic 11/27/16) Paresthesia (Chronic 08/23/16) Osteomyelitis (Resolved 07/09/14) On stimulant medication (Chronic 08/20/17) Mood disorder (Chronic 08/23/16) MRSA (methicillin resistant Staphylococcus aureus) (Resolved 07/09/14) Lichen simplex chronicus (Resolved 07/16/14) History of intravenous drug use in remission (Resolved 07/09/14) History of endocarditis (Resolved 07/09/14) GERD (gastroesophageal reflux disease) (Chronic 07/09/14) Depression (Chronic 08/23/16) Congenital connective tissue disorder (Chronic) Cirrhosis of liver without ascites (Chronic 11/27/16) Chronic pain syndrome (Chronic 10/03/16) Chronic nausea (Chronic 07/09/14) Cervical spondylosis (Chronic 07/09/14) COPD (chronic obstructive pulmonary disease) (Chronic 08/23/16) Attention deficit disorder (ADD) in adult (Chronic) Alcohol abuse (Resolved 07/09/14) Adjustment disorder with mixed anxiety and depressed mood (Chronic 08/27/17) Acute allergic rhinitis due to pollen (Chronic 05/29/17) Polysubstance dependence including opioid type drug with complication, continuous use (Resolved) Chronic osteomyelitis of right shoulder region (Chronic) Endometriosis (Resolved) Social History/Home Situation: Patient has been discharged with assistance from local social secretary, who will assist her with temporary housing. Equipment Owned/DME: None Subjective: None obtained, as patient has been discharged at time of documentation Objective: ROM: Right Upper Extremity: Shoulder flexion allows 140 degrees. Elbow motion grossly within normal limits. Hand motion allows only partial tire mold engraver. Left Upper Extremity: Shoulder flexion allows 120 degrees. Elbow motion grossly within normal limits. Hand motion allows only partial tire mold engraver. Right Lower Extremity: WFL Left Lower Extremity: WFL Strength: Right Upper Extremity: Shoulder flexion grossly 3-/5. Left Upper Extremity: Shoulder flexion grossly 3-/5. Right Lower Extremity: hip Flexion 3+/5. Quads 3+/5. Ankle dorsiflexion 3/5 Left Lower Extremity: hip Flexion 3+/5. Quads 4/5. Ankle dorsiflexion 3/5 Sensation: Diminished through plantar aspect of both feet Bed Mobility/Transfers: Supine to sit: Supervision Sit to supine: Supervision Sit to stand: Supervision Stand to sit: Supervision Bed to chair: FW W, CG Gait: Patient able to ambulate 20 feet with FW W and contact-guard. She demonstrates poor safety awareness, with loss of balance x2, requiring assistance for recovery. She has positive antalgia, with right knee buckling on various occasions during ambulation. Balance: Static Sitting: Good Dynamic Sitting: Good Static Standing: Fair Dynamic Standing: poor Assessment: Patient is a 53 year old female referred to physical therapy services with the diagnosis of weakness, hand infection. Patient presented with clinical signs and symptoms consistent with chronic mobility issues, exacerbated by recent hospitalization to address psychiatric disorder and cellulitis of the right hand. Patient has a long history of falls, as well as a complicated medical history, placing her at high risk for future falls. She has lower extremity weakness and balance deficits, on top of limitations in safety awareness. She has demonstrated improved safety with use of FWW, and will require FWW for ambulation in the community. On the bed bug exterminator, she'd benefit from evaluation for power wheelchair due to her history of falls, multiple musculoskeletal issues, and inability to self-propel due to ongoing skin integrity issues with her hands. Goals: Goals X1 week 1. Supine-Sit: Supervision (MET) 2. Sit-Supine : Supervision(MET) 3. Sit-Stand: Supervision(MET) 4. Stand-Sit : Supervision(MET) 5. Bed-Chair: Supervision(NOT MET) 6. Chair-Bed: Supervision(NOT MET) 7. Gait: Supervision with FWW x 50' (NOT MET) Plan of Care/Treatment Plan: D/C from PT services in acute care setting. DISCHARGE RECOMMENDATIONS: Patient will be discharged to the community with social secretary. She will require FWW and recommend outpatient evaluation for power chair. TREATMENT CODE/TIME: Non-treatment note. No charge.
--- NOTE | 2018-10-01 15:45 | INDS_ITS ---
Date of service: 10/01/18 Time of Service: 15:36 PT Notes Date: 10/01/18 Referring Doctor: Dianne Peck NP PT Orders: PT CONSULT: weakness, hand infection Precautions: Fall, standard Treatment Dates: 09/29/18 - 10/01/18 NON-TREATMENT NOTE. THIS DOCUMENT SERVES A SUMMARY OF CARE. Patient Profile/Admitting Diagnosis: Patient admitted 09/26/2018 for psychiatric disorder. She was also found to have cellulitis of the right hand secondary to frostbite; she underwent I&D performed by Dr. Merlos on 09/26. She suffered a fall in her hospital room 224, and PT consult was requested to assess mobility. She was seen for 3 PT sessions over the course of 3 days, with limited participation due to levels of anxiety and need for redirection. PMHX: Tobacco dependence syndrome (Chronic) Inactive tuberculosis (Inactive) Drug abuse (Inactive) Alcohol abuse (Inactive) Chronic hepatitis (Chronic) Bipolar disorder (Chronic) Endocarditis (Resolved) Methicillin resistant Staphylococcus aureus infection (Resolved) Cervical spondylosis (Chronic) Lichen simplex chronicus (Resolved) Hepatitis C (Chronic) Gastroesophageal reflux disease (Chronic) Asthma (Chronic) Osteomyelitis (Resolved) Thrombocytopenia (Resolved 08/23/16) Staphylococcal infection of skin (Resolved 11/07/16) Sleep disturbance (Resolved 08/23/16) Psychogenic nonepileptic seizure (Chronic 11/27/16) Paresthesia (Chronic 08/23/16) Osteomyelitis (Resolved 07/09/14) On stimulant medication (Chronic 08/20/17) Mood disorder (Chronic 08/23/16) MRSA (methicillin resistant Staphylococcus aureus) (Resolved 07/09/14) Lichen simplex chronicus (Resolved 07/16/14) History of intravenous drug use in remission (Resolved 07/09/14) History of endocarditis (Resolved 07/09/14) GERD (gastroesophageal reflux disease) (Chronic 07/09/14) Depression (Chronic 08/23/16) Congenital connective tissue disorder (Chronic) Cirrhosis of liver without ascites (Chronic 11/27/16) Chronic pain syndrome (Chronic 10/03/16) Chronic nausea (Chronic 07/09/14) Cervical spondylosis (Chronic 07/09/14) COPD (chronic obstructive pulmonary disease) (Chronic 08/23/16) Attention deficit disorder (ADD) in adult (Chronic) Alcohol abuse (Resolved 07/09/14) Adjustment disorder with mixed anxiety and depressed mood (Chronic 08/27/17) Acute allergic rhinitis due to pollen (Chronic 05/29/17) Polysubstance dependence including opioid type drug with complication, continuous use (Resolved) Chronic osteomyelitis of right shoulder region (Chronic) Endometriosis (Resolved) Social History/Home Situation: Patient has been discharged with assistance from local aids social worker, who will assist her with temporary housing. Equipment Owned/DME: None Subjective: None obtained, as patient has been discharged at time of documentation Objective: ROM: Right Upper Extremity: Shoulder flexion allows 140 degrees. Elbow motion grossly within normal limits. Hand motion allows only partial engraver jewelry. Left Upper Extremity: Shoulder flexion allows 120 degrees. Elbow motion grossly within normal limits. Hand motion allows only partial engraver jewelry. Right Lower Extremity: WFL Left Lower Extremity: WFL Strength: Right Upper Extremity: Shoulder flexion grossly 3-/5. Left Upper Extremity: Shoulder flexion grossly 3-/5. Right Lower Extremity: hip Flexion 3+/5. Quads 3+/5. Ankle dorsiflexion 3/5 Left Lower Extremity: hip Flexion 3+/5. Quads 4/5. Ankle dorsiflexion 3/5 Sensation: Diminished through plantar aspect of both feet Bed Mobility/Transfers: Supine to sit: Supervision Sit to supine: Supervision Sit to stand: Supervision Stand to sit: Supervision Bed to chair: FW W, CG Gait: Patient able to ambulate 20 feet with FW W and contact-guard. She demonstrates poor safety awareness, with loss of balance x2, requiring assistance for recovery. She has positive antalgia, with right knee buckling on various occasions during ambulation. Balance: Static Sitting: Good Dynamic Sitting: Good Static Standing: Fair Dynamic Standing: poor Assessment: Patient is a 53 year old female referred to physical therapy services with the diagnosis of weakness, hand infection. Patient presented with clinical signs and symptoms consistent with chronic mobility issues, exacerbated by recent hospitalization to address psychiatric disorder and cellulitis of the right hand. Patient has a long history of falls, as well as a complicated medical history, placing her at high risk for future falls. She has lower extremity weakness and balance deficits, on top of limitations in safety awareness. She has demonstrated improved safety with use of FWW, and will require FWW for ambulation in the community. On the scrap baller, she'd benefit from evaluation for power wheelchair due to her history of falls, multiple musculoskeletal issues, and inability to self-propel due to ongoing skin integrity issues with her hands. Goals: Goals X1 week 1. Supine-Sit: Supervision (MET) 2. Sit-Supine : Supervision(MET) 3. Sit-Stand: Supervision(MET) 4. Stand-Sit : Supervision(MET) 5. Bed-Chair: Supervision(NOT MET) 6. Chair-Bed: Supervision(NOT MET) 7. Gait: Supervision with FWW x 50' (NOT MET) Plan of Care/Treatment Plan: D/C from PT services in acute care setting. DISCHARGE RECOMMENDATIONS: Patient will be discharged to the community with aids social worker. She will require FWW and recommend outpatient evaluation for power chair. TREATMENT CODE/TIME: Non-treatment note. No charge.
--- NOTE | 2018-10-01 17:21 | PDOC.CMPRO ---
- If Service Date Differs Date of service: 10/01/18 Time of Service: 17:21 Care Management Progress Note CM contacted economic services and faxed forms required to be placed in emergency care home. HARISH spoke with Devin at [facility] and arranged hotel for one night. Joe will need to return to [facility] in the morning to complete care home forms to obtain ongoing care home. Joe was able to schedule RCT ride for Provider appointment at [facility] in [place], [place]. She has an appointment on 10/02/18 at 2:30 with Nadiya Larios APRN. Joe states she was able to pear picker her medications at the pharmacy she was unable to obtain ADHD medication as it was to early. Joe did have a FWW at time of discharge through [facility] at the request of Pt and recommended by PT>
--- NOTE | 2018-10-01 17:25 | CMPROGNOTE_ITS ---
- If Service Date Differs Date of service: 10/01/18 Time of Service: 17:21 Care Management Progress Note CM contacted economic services and faxed forms required to be placed in emergency [facility]. HARISH spoke with Devin at [facility] and arranged hotel for one night. Joe will need to return to [facility] in the morning to complete m[facility]p forms to obtain ongoing mcfp. Joe was able to schedule RCT ride for Provider appointment at [facility] in [place], [place]. She has an appointment on 10/02/18 at 2:30 with Nadiya Larios APRN. 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 Joe did have a FWW at time of discharge through [facility] at the request of Pt and recommended by PT>
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
== END 2018-10-01 15:31 | disposition home or self-care (01) | DRG 881 ==
LOC: ER 16:29 → MS 09-26 10:26 → ER 09-27 08:47
PROVIDERS: Internal Medicine; Nurse Practitioner; Nurse Practitioner Family; Admitting Provider Family Medicine; Emergency Provider Student in an Organized Health Care Education/Training Program; PCP Family Medicine; Visit Provider Internal Medicine
DX: F32.9 Major depressive disorder, single episode, unspecified (principal); T34.531A Frostbite with tissue necrosis of right finger(s), initial encounter; T33.531A Superficial frostbite of right finger(s), initial encounter; T33.532A Superficial frostbite of left finger(s), initial encounter; R45.851 Suicidal ideations; L02.511 Cutaneous abscess of right hand; L03.113 Cellulitis of right upper limb; L03.114 Cellulitis of left upper limb; F17.213 Nicotine dependence, cigarettes, with withdrawal; Z91.5 Personal history of self-harm; F31.9 Bipolar disorder, unspecified; B18.2 Chronic viral hepatitis C; Z86.14 Personal history of Methicillin resistant Staphylococcus aureus infection; F44.5 Conversion disorder with seizures or convulsions; B95.61 Methicillin susceptible Staphylococcus aureus infection as the cause of diseases classified elsewhere; X31.XXXA Exposure to excessive natural cold, initial encounter; F90.9 Attention-deficit hyperactivity disorder, unspecified type; D70.9 Neutropenia, unspecified; F19.21 Other psychoactive substance dependence, in remission; Z71.3 Dietary counseling and surveillance; R29.6 Repeated falls
CPT/HCPCS: 36415; 80048; 80053; 80307; 85027; 87077; 93005; 94640; 96361; 96372; 96374; 97110; 97163; 97167; 97535; 99220; 99232; 99233; 99239; 99253; 99285; J1650; 71045; 80202; 80320; 80329; 81003; 83735; 84443; 85025; 87070; 87186; 87205; 93010; G0378; J0690; J1885; J2060; J2270; J2543; J3490

== ENCOUNTER 2018-10-08 13:25 | Emergency (ER) | payer MEDICAID, SELFPAY ==
[2018-10-08 13:30] VITALS: BP 158/98; PULSE 121; RESP 22; TEMP 37.3; O2SAT 95
[2018-10-08 13:42] VITALS: RESP 16
--- NOTE | 2018-10-08 13:59 | DI.CT_ITS ---
SYMPTOMS/DIAGNOSIS: TRAUMA S/P FALL 1 MO AGO, MOSTLY RIGHT-SIDED PAIN CT BRAIN: A noncontrast cranial CT was performed. The ventricular system is normal in appearance. There is no evidence of an intracranial mass lesion. There is no evidence of a subdural or epidural hematoma. No focal areas of decreased attenuation are seen. CONCLUSION: Normal noncontrast cranial CT. CT SCAN OF THE CERVICAL SPINE: Multiple contiguous axial images of the cervical spine were obtained. Sagittal and coronal reformatted images were evaluated on the Siemens workstation. Comparison examination is 04/29/18. There is again seen ankylosis of the C5, 6 and 7 vertebral bodies. There is also acute kyphosis seen centered at the C4-5 level. No acute fractures or subluxations are seen. The alignment of the cervical spine is stable. There are degenerative changes present throughout the cervical spine. No significant prevertebral soft tissue swelling is present. IMPRESSION: No acute fracture or subluxation in the cervical spine. Chronic changes of the cervical spine as described above. CT SCAN OF THE FACE: Multiple contiguous axial images of the face were obtained. Sagittal and coronal reformatted images were evaluated. No evidence of a facial fracture is seen. The orbits and retroorbital soft tissues are grossly unremarkable. The visualized paranasal sinuses are clear. No fluid levels are seen. The mastoid air cells are well pneumatized. IMPRESSION: No evidence of a facial fracture. The findings were discussed with Dr. Kim of the Emergency Department on the date of the examination.
--- NOTE | 2018-10-08 13:59 | DI.RAD_ITS ---
SYMPTOMS/DIAGNOSIS: TRAUMA S/P FALL 1 MO AGO, MOSTLY RIGHT-SIDED PAIN LEFT ANKLE: Three views. No acute fracture or dislocation is identified.
--- NOTE | 2018-10-08 14:05 | ED.GENADUL_ITS ---
Discharge Plan Disposition Patient Disposition: HOME Condition: Good Discharge Details Chief Complaint: GenMedical Clinical Impression: Frostbite of both hands, Contusion of face, Frequent falls Primary Care Provider: Sujata Werner ED Provider: Rafael Kim [employer] Meds and New Rx's Prescriptions: Continued acetaminophen [Arthritis Pain Relief (acetam)] 650 MG tablet extended release 650 mg PO Q8H PRN RF: 0 lansoprazole 30 MG capsule,delayed release(DR/EC) 30 mg PO DAILY Qty: 90 RF: 3 SHERIN Ankle Brace 1 EACH misc 1 ea Miscellaneous DAILY Qty: 1 RF: 0 promethazine 25 MG tablet 25 mg PO TID PRNQty: 90 RF: 11 spironolactone 25 MG tablet 25 mg PO DAILY Qty: 90 RF: 3 cholecalciferol (vitamin D3) 1,000 UNIT tablet 1,000 unit PO DAILY Qty: 90 RF: 3 cetirizine 10 MG tablet 10 mg PO BID Qty: 180 RF: 3 Lyrica 100 MG capsule 100 mg PO BID Qty: 56 RF: 5 furosemide 40 MG tablet 40 mg PO DAILY Qty: 90 RF: 1 albuterol sulfate [ProAir HFA] 8.5 GM HFA aerosol inhaler 2 puff Inhalation Q4H PRN Qty: 5 RF: 0 Flovent HFA 12 GM HFA aerosol inhaler 110 mcg Inhalation prn bid Qty: 5 RF: 0 Multi 1 EACH tablet 1 ea PO DAILY Qty: 90 RF: 1 Boost 237 ML liquid 237 ml PO AC & HS PRNQty: 120 RF: 3 polyethylene glycol 3350 [Miralax] 17 gram Powder In Packet 17 g PO DAILY PRNRF: 0 calcium carbonate 600 mg calcium (1,500 mg) Tablet 600 mg PO BID RF: 0 clonazepam 1 mg Tablet 1 mg PO BID Qty: 2 RF: 0 hydroxyzine HCl 50 mg Tablet 100 mg PO TID Qty: 12 RF: 0 dextroamphetamine-amphetamine [Adderall XR] 20 mg Capsule,Extended Release 24 hr 20 mg PO TID@0600,1200,1800 Qty: 3 RF: 0 cephalexin 500 mg Capsule 1,000 mg PO TID Qty: 34 RF: 0 ibuprofen 400 mg Tablet 400 mg PO Q4H PRN PRNQty: 0 RF: 0 gabapentin 300 mg Capsule 300 mg PO BID Qty: 14 RF: 0 Asmanex Twisthaler 220 mcg (14 doses) Aerosol Powdr Breath Activated 2 puff Inhalation BID PRN PRNQty: 0 RF: 0 Discontinued dextroamphetamine-amphetamine [Adderall XR] 20 MG capsule,extended release 24hr 15 mg PO BID RF: 0 nabumetone 500 MG tablet 500 mg PO DAILY Qty: 90 RF: 3 short walking boot 1 u Miscellaneous ONCE Qty: 1 RF: 0 diclofenac potassium 50 mg Tablet 1 tab PO BID RF: 0 tramadol 50 mg Tablet 50 mg PO Q6H PRN PRNQty: 12 RF: 0 naproxen sodium [Aleve] 220 mg Tablet 2 RF: 0 Discharge Instructions Additional Instructions: You will need to follow-up with primary care and continue to work on placement in assisted living. Keep your appointment with Dr. Merlos as previously scheduled. Return to the emergency department if fever, worsening hand pain swelling, confusion, significant trauma from falls, other concerns. Referrals: Sujata Werner [Primary Care Provider] - Pio Merlos MD [ [facility] STAFF PHYSICIAN] - Medical Decision Making Patient's hands look like residual frostbite injury. I do not think she has another infection. I did speak with Dr. Merlos who has seen the patient while she was in the hospital. He agrees but will come and see her after clinic to be sure there is no evidence of recurrent infection for which she was admitted for previously. Because of her falls, she will get imaging of the head/face/C-spine as well as right ankle x-ray. I do not see any indication for lab. CT scans are negative for acute injury. Right ankle negative for acute injury. Patient was seen by Dr. Merlos who agrees no infection and residual injury from frostbite. Patient will follow up with him as planned. She is in the process of getting into assisted living but this can continue to be managed outpatient. She is safe for discharge back home at this point. Medical Records Medical records reviewed: Yes I reviewed the patient's medical records. HPI General Mode of arrival: ambulatory . Date/Time Provider Initiated Documentation: 10/08/18 13:39 . Limitations to Documentation: no limitations . Information obtained by: patient and old records reviewed . HPI Narrative: Patient presents with multiple complaints. She was just discharged from the hospital 1 week ago after an admission for both mental health as well as hand abscess. She spent time at [facility] status post frostbite injury to the hands. She reports that her hands do not seem to be getting any better despite oral antibiotics. She reports that she continues to have falls. She reports falling and hitting her head the other day. She complains of head and face and neck pain. She also complains of worsening ankle pain since a fall. Falling is a chronic issue with her. She is depressed but denies being suicidal or homicidal. Her biggest complaint is that of hand pain and swelling which has been present since discharge. Related Data Home Medications Medication Instructions Recorded Confirmed acetaminophen [Arthritis Pain 650 mg PO Q8H PRN 12/25/16 10/08/18 Relief (acetam)] lansoprazole 30 mg PO DAILY #90 tab-cap 02/11/17 10/08/18 SHERIN Ankle Brace #1 ea 03/05/17 09/07/18 promethazine 25 mg PO TID PRN #90 tab-cap 05/15/17 10/08/18 spironolactone 25 mg PO DAILY #90 tab-cap 05/23/17 10/08/18 cholecalciferol (vitamin D3) 1,000 unit PO DAILY #90 tab-cap 06/18/17 10/08/18 cetirizine 10 mg PO BID #180 tab-cap 07/16/17 09/25/18 Lyrica 100 mg PO BID #56 tab-cap 08/20/17 10/08/18 Boost 237 ml PO AC & HS PRN #120 bottle 08/27/17 10/08/18 Flovent HFA 110 mcg INHALATION prn bid #5 08/27/17 10/08/18 inhaler Multi 1 ea PO DAILY #90 tab 08/27/17 10/08/18 albuterol sulfate [ProAir HFA] 2 puff INHALATION Q4H PRN #5 08/27/17 10/08/18 inhaler furosemide 40 mg PO DAILY #90 tab-cap 08/27/17 10/08/18 calcium carbonate 600 mg PO BID 09/25/18 09/25/18 polyethylene glycol 3350 [Miralax] 17 g PO DAILY PRN 09/25/18 10/08/18 cephalexin 1,000 mg PO TID #34 cap 10/01/18 clonazepam 1 mg PO BID #2 tab 10/01/18 10/08/18 dextroamphetamine-amphetamine 20 mg PO TID@0600,1200,1800 #3 cap 10/01/18 10/08/18 [Adderall XR] gabapentin 300 mg PO BID #14 cap 10/01/18 10/08/18 hydroxyzine HCl 100 mg PO TID #12 tab 10/01/18 10/08/18 ibuprofen 400 mg PO Q4H PRN PRN #0 tab 10/01/18 10/08/18 mometasone [Asmanex Twisthaler] 2 puff INHALATION BID PRN PRN #0 ea 10/01/18 10/08/18 Previous Rx's Medication Instructions Recorded spironolactone 25 mg PO DAILY #90 tab-cap 05/23/17 cholecalciferol (vitamin D3) 1,000 unit PO DAILY #90 tab-cap 06/18/17 cetirizine 10 mg PO BID #180 tab-cap 07/16/17 Lyrica 100 mg PO BID #56 tab-cap 08/20/17 Flovent HFA 110 mcg INHALATION prn bid #5 08/27/17 inhaler Multi 1 ea PO DAILY #90 tab 08/27/17 albuterol sulfate [ProAir HFA] 2 puff INHALATION Q4H PRN #5 08/27/17 inhaler furosemide 40 mg PO DAILY #90 tab-cap 08/27/17 cephalexin 1,000 mg PO TID #34 cap 10/01/18 clonazepam 1 mg PO BID #2 tab 10/01/18 dextroamphetamine-amphetamine 20 mg PO TID@0600,1200,1800 #3 cap 10/01/18 [Adderall XR] gabapentin 300 mg PO BID #14 cap 10/01/18 hydroxyzine HCl 100 mg PO TID #12 tab 10/01/18 ibuprofen 400 mg PO Q4H PRN PRN #0 tab 10/01/18 mometasone [Asmanex Twisthaler] 2 puff INHALATION BID PRN PRN #0 ea 10/01/18 Allergies Allergy/AdvReac Type Severity Reaction Status Date / Time codeine Allergy Severe THROAT Unverified 10/08/18 13:46 SWELLING adhesive Allergy Itching Unverified 10/08/18 13:46 cat dander Allergy Unverified 10/08/18 13:46 pollen extracts Allergy Unverified 10/08/18 13:46 DANDER DUST Allergy Mild Uncoded 10/08/18 13:46 LOTIONS Allergy Unknown Uncoded 10/08/18 13:46 General Stated Complaint: GenMedical MAXI: 3 Review of Systems Constitutional Denies chills, Denies fever(s), Reports frequent falls, Reports headache(s) and Reports weakness ENT Reports facial pain, Reports headache(s), Denies epistaxis and Reports neck pain Cardiovascular Denies chest pain, Denies syncope and Denies dyspnea Respiratory Denies cough and Denies dyspnea Gastrointestinal Denies abdominal pain, Denies nausea and Denies vomiting Musculoskeletal Denies back pain, Reports neck pain and Reports tingling Comments: hand pain Integumentary/Breasts Reports erythema Neurologic Denies syncope, Reports frequent falls, Reports headache(s), Reports tingling, Reports paresthesias and Reports weakness Psychiatric Reports depression, Denies homicidal ideation and Denies suicidal ideation [facility] Medical History Tobacco dependence syndrome (Chronic) Inactive tuberculosis (Inactive) Drug abuse (Inactive) Alcohol abuse (Inactive) Chronic hepatitis (Chronic) Bipolar disorder (Chronic) Endocarditis (Resolved) Methicillin resistant Staphylococcus aureus infection (Resolved) Cervical spondylosis (Chronic) Lichen simplex chronicus (Resolved) Hepatitis C (Chronic) Gastroesophageal reflux disease (Chronic) Asthma (Chronic) Osteomyelitis (Resolved) Thrombocytopenia (Resolved 08/23/16) Staphylococcal infection of skin (Resolved 11/07/16) Sleep disturbance (Resolved 08/23/16) Psychogenic nonepileptic seizure (Chronic 11/27/16) Paresthesia (Chronic 08/23/16) Osteomyelitis (Resolved 07/09/14) On stimulant medication (Chronic 08/20/17) Mood disorder (Chronic 08/23/16) MRSA (methicillin resistant Staphylococcus aureus) (Resolved 07/09/14) Lichen simplex chronicus (Resolved 07/16/14) History of intravenous drug use in remission (Resolved 07/09/14) History of endocarditis (Resolved 07/09/14) GERD (gastroesophageal reflux disease) (Chronic 07/09/14) Depression (Chronic 08/23/16) Congenital connective tissue disorder (Chronic) Cirrhosis of liver without ascites (Chronic 11/27/16) Chronic pain syndrome (Chronic 10/03/16) Chronic nausea (Chronic 07/09/14) Cervical spondylosis (Chronic 07/09/14) COPD (chronic obstructive pulmonary disease) (Chronic 08/23/16) Attention deficit disorder (ADD) in adult (Chronic) Alcohol abuse (Resolved 07/09/14) Adjustment disorder with mixed anxiety and depressed mood (Chronic 08/27/17) Acute allergic rhinitis due to pollen (Chronic 05/29/17) Polysubstance dependence including opioid type drug with complication, continuous use (Resolved) Chronic osteomyelitis of right shoulder region (Chronic) Endometriosis (Resolved) Surgical History Colonoscopy - MAC (Resolved) Debridement, Bone (Resolved) Abdominal hysterectomy (Resolved 05/05/03) Diagnostic Laproscopy (Resolved) EGD - MAC (Resolved ~2001) Social History Smoking and Tabacco status: Current-Occasional Exam Const General: no acute distress Orientation: alert and oriented x3 HENMT Head: normocephalic and atraumatic General nose exam: no epistaxis Face and sinus: tenderness (Right side of cheek and bridge of nose.) Neck Neck: full ROM and trachea midline Resp Effort & Inspection: normal respiratory effort Auscultation: clear to auscultation bilaterally Cardio Rate: regular rate Rhythm: regular rhythm Heart Sounds: S1 normal and S2 normal Pulses: radial pulses present Back/Spine/Pelvis Cervical Spine: cervical ROM normal and No cervical spinal tenderness Thoracic/Lumbar Spine: No thoracic spinal tenderness and No lumbar spinal tenderness Skin General skin exam: erythema (Erythema to all fingers) Neuro General: alert, oriented x3, no focal motor deficits and CN's II-XI intact bilaterally Speech: speech normal Sensory Exam: other (Decrease in sensation of the fingers) Extrem Other: Patient has swelling and erythema to all of her fingers. She has eschar and tissue to the right index tip. She is able to flex and extend. Upper extremities otherwise unremarkable. Lower extremities with good range of motion. Appears to have chronic deformity of the right ankle. Psych Mental Status: mental status grossly normal Speech and Movement: speech and movement normal Attitude: cooperative Thought Content: no homicidality and suicidality Course Vital Signs Temperature 99.1 F 10/08/18 13:30 Pulse 121 H 10/08/18 13:30 Respiratory Rate 22 10/08/18 13:30 Blood Pressure 158/98 H 10/08/18 13:30 Pulse Oximetry 95 10/08/18 13:30 Temperature 99.1 F 10/08/18 13:30 Temperature Source Temporal Artery Scan 10/08/18 13:30 Pulse 121 H 10/08/18 13:30 Respiratory Rate 16 10/08/18 13:42 Respiratory Effort 10/08/18 13:42 Respiratory Depth Normal 10/08/18 13:42 Respiratory Pattern Normal 10/08/18 13:42 Blood Pressure 158/98 H 10/08/18 13:30 Blood Pressure Position Sitting 10/08/18 13:30 Pulse Oximetry 95 10/08/18 13:30 Oxygen Delivery Method Room Air 10/08/18 13:30 Oxygen Flow Rate 0 10/08/18 13:30 Pain Level 8 10/08/18 13:30
[2018-10-08 16:33] VITALS: BP 126/78; PULSE 98; RESP 16; TEMP 37.3; O2SAT 100
[2018-10-08 17:35] VITALS: PULSE 88; RESP 16; TEMP 37; O2SAT 99
== END 2018-10-08 18:45 | disposition home or self-care (01) ==
PROVIDERS: Emergency Provider Emergency Medicine; PCP Family Medicine
DX: S00.83XA Contusion of other part of head, initial encounter (principal); T33.521D Superficial frostbite of right hand, subsequent encounter; T33.522D Superficial frostbite of left hand, subsequent encounter; R51 Headache; M54.2 Cervicalgia; M25.571 Pain in right ankle and joints of right foot; W01.0XXA Fall on same level from slipping, tripping and stumbling without subsequent striking against object, initial encounter; R29.6 Repeated falls
CPT/HCPCS: 99284; 70450; 70486; 72125; 73610

== ENCOUNTER 2018-11-05 18:00 | Emergency (ER) | payer MEDICAID, SELFPAY ==
[2018-11-05 18:04] VITALS: BP 164/94; RESP 22; TEMP 37.3; O2SAT 96
--- NOTE | 2018-11-05 18:11 | W.ED.GENAD ---
Discharge Plan Disposition Patient Disposition: HOME Condition: Stable Discharge Details Chief Complaint: Seizure Clinical Impression: Evaluation by medical service required, Headache Primary Care Provider: Sujata Werner ED Provider: David Caldera Home Meds and New Rx's Prescriptions: No Action acetaminophen [Arthritis Pain Relief (acetam)] 650 MG tablet extended release 650 mg PO Q8H PRN RF: 0 lansoprazole 30 MG capsule,delayed release(DR/EC) 30 mg PO DAILY Qty: 90 RF: 3 SHERIN Ankle Brace 1 EACH misc 1 ea Miscellaneous DAILY Qty: 1 RF: 0 promethazine 25 MG tablet 25 mg PO TID PRNQty: 90 RF: 11 spironolactone 25 MG tablet 25 mg PO DAILY Qty: 90 RF: 3 cholecalciferol (vitamin D3) 1,000 UNIT tablet 1,000 unit PO DAILY Qty: 90 RF: 3 cetirizine 10 MG tablet 10 mg PO BID Qty: 180 RF: 3 Lyrica 100 MG capsule 100 mg PO BID Qty: 56 RF: 5 furosemide 40 MG tablet 40 mg PO DAILY Qty: 90 RF: 1 albuterol sulfate [ProAir HFA] 8.5 GM HFA aerosol inhaler 2 puff Inhalation Q4H PRN Qty: 5 RF: 0 Flovent HFA 12 GM HFA aerosol inhaler 110 mcg Inhalation prn bid Qty: 5 RF: 0 Multi 1 EACH tablet 1 ea PO DAILY Qty: 90 RF: 1 Boost 237 ML liquid 237 ml PO AC & HS PRNQty: 120 RF: 3 polyethylene glycol 3350 [Miralax] 17 gram Powder In Packet 17 g PO DAILY PRNRF: 0 calcium carbonate 600 mg calcium (1,500 mg) Tablet 600 mg PO BID RF: 0 clonazepam 1 mg Tablet 1 mg PO BID Qty: 2 RF: 0 hydroxyzine HCl 50 mg Tablet 100 mg PO TID Qty: 12 RF: 0 dextroamphetamine-amphetamine [Adderall XR] 20 mg Capsule,Extended Release 24hr 20 mg PO TID@0600,1200,1800 Qty: 3 RF: 0 cephalexin 500 mg Capsule 1,000 mg PO TID Qty: 34 RF: 0 ibuprofen 400 mg Tablet 400 mg PO Q4H PRN PRNQty: 0 RF: 0 gabapentin 300 mg Capsule 300 mg PO BID Qty: 14 RF: 0 Asmanex Twisthaler 220 mcg (14 doses) Aerosol Powdr Breath Activated 2 puff Inhalation BID PRN PRNQty: 0 RF: 0 Discharge Instructions Instructions: General Headache (ED) Additional Instructions: If you notice any worsening of your symptoms, or any new symptoms such as vomiting, diarrhea, fever, chills, shortness of breath, chest pain, numbness, weakness, or fainting , please return immediately to the emergency department for reevaluation. Please follow up with your primary care provider as soon as possible for reassessment and reevaluation. As always, it was a pleasure participating in your medical care today. Medical Decision Making This is a pleasant 53-year-old female with multiple medical problems including psychogenic nonepileptic seizure. Patient was brought in by state police under police custody for evaluation of seizure. She was placed under arrest earlier today, when she was in the cruiser being told she was going to go to halfway she had a tremor like movement past throughout her body. Immediately after the event she began talking conversing normally with a police dispatcher. He then brought her to the ER for further evaluation. Here in the ER she demonstrates no concerning red flags of fever, nuchal tenderness or rigidity, neurologic deficit, bowel or bladder incontinence, or tongue biting lesions. She is acting and conversing at her baseline here in the ED, with no hint of neurologic deficit, postictal phase, or other abnormality. She denies any current IV or illicit drug use or other illicit substance use. With a benign neurologic exam, did not unremarkable physical exam otherwise, I feel that she can be safely discharged home if she shows no history or exam that is clinically consistent with a life-threatening neurologic abnormality at this time. Feel that the patient's episode in the car may have likely been a psychogenic nonepileptic seizure at most, more likely a stress reaction in general. Patient will be discharged to police custody. She has been given Tylenol for complaint of her mild headache. I have extensively reviewed the treatment plan and discharge instructions with the patient. I have addressed all patient concerns at this time. The patient was made aware of what symptoms to monitor for that would warrant a return to the emergency department. Discussed the plan with the patient, they demonstrate verbal understanding and agreement with our assessment and plan at this time. HPI General Date/Time Provider Initiated Documentation: 11/05/18 18:01. HPI Narrative: This is a 53-year-old female with a past medical history of bipolar disease, hepatitis, illicit drug abuse, recent frostbite of her fingers secondary to exposure, and psychogenic nonepileptic seizures. She presents today for evaluation of seizure. She is brought in under police custody by the state police. Police state that she was found in a location which was incongruent with the current rules and guidelines set out by her almond roaster. Patient was handcuffed and then put in the police cruiser. When the officer told her that she would be going to halfway she started shaking over her entire body. This lasted just for a few seconds, she immediately began having normal conversation after this. Because of this episode she was brought in for evaluation of seizure. Patient has a history of nonepileptic psychogenic seizures. She had no bowel or bladder incontinence, no tongue biting, she denies any chest pain, shortness of breath, vomiting, diarrhea, numbness tingling or weakness. She denies any visual changes, weakness, or other complaint. She does admit to a very mild headache. Patient is most focused on significant repetition that she has innocent, and should not be going to halfway. I informed her that my goal was to evaluate her medically, and I had no say or influence on the legalities component of her current custody situation. The patient denies any other acute complaints. Related Data Home Medications Medication Instructions Recorded Confirmed acetaminophen [Arthritis Pain 650 mg PO Q8H PRN 12/25/16 10/08/18 Relief (acetam)] lansoprazole 30 mg PO DAILY #90 tab-cap 02/11/17 10/08/18 SHERIN Ankle Brace #1 ea 03/05/17 09/07/18 promethazine 25 mg PO TID PRN #90 tab-cap 05/15/17 10/08/18 spironolactone 25 mg PO DAILY #90 tab-cap 05/23/17 10/08/18 cholecalciferol (vitamin D3) 1,000 unit PO DAILY #90 tab-cap 06/18/17 10/08/18 cetirizine 10 mg PO BID #180 tab-cap 07/16/17 09/25/18 Lyrica 100 mg PO BID #56 tab-cap 08/20/17 10/08/18 Boost 237 ml PO AC & HS PRN #120 bottle 08/27/17 10/08/18 Flovent HFA 110 mcg INHALATION prn bid #5 08/27/17 10/08/18 inhaler Multi 1 ea PO DAILY #90 tab 08/27/17 10/08/18 albuterol sulfate [ProAir HFA] 2 puff INHALATION Q4H PRN #5 08/27/17 10/08/18 inhaler furosemide 40 mg PO DAILY #90 tab-cap 08/27/17 10/08/18 calcium carbonate 600 mg PO BID 09/25/18 09/25/18 polyethylene glycol 3350 [Miralax] 17 g PO DAILY PRN 09/25/18 10/08/18 cephalexin 1,000 mg PO TID #34 cap 10/01/18 clonazepam 1 mg PO BID #2 tab 10/01/18 10/08/18 dextroamphetamine-amphetamine 20 mg PO TID@0600,1200,1800 #3 cap 10/01/18 10/08/18 [Adderall XR] gabapentin 300 mg PO BID #14 cap 10/01/18 10/08/18 hydroxyzine HCl 100 mg PO TID #12 tab 10/01/18 10/08/18 ibuprofen 400 mg PO Q4H PRN PRN #0 tab 10/01/18 10/08/18 mometasone [Asmanex Twisthaler] 2 puff INHALATION BID PRN PRN #0 ea 10/01/18 10/08/18 Previous Rx's Medication Instructions Recorded spironolactone 25 mg PO DAILY #90 tab-cap 05/23/17 cholecalciferol (vitamin D3) 1,000 unit PO DAILY #90 tab-cap 06/18/17 cetirizine 10 mg PO BID #180 tab-cap 07/16/17 Lyrica 100 mg PO BID #56 tab-cap 08/20/17 Flovent HFA 110 mcg INHALATION prn bid #5 08/27/17 inhaler Multi 1 ea PO DAILY #90 tab 08/27/17 albuterol sulfate [ProAir HFA] 2 puff INHALATION Q4H PRN #5 08/27/17 inhaler furosemide 40 mg PO DAILY #90 tab-cap 08/27/17 cephalexin 1,000 mg PO TID #34 cap 10/01/18 clonazepam 1 mg PO BID #2 tab 10/01/18 dextroamphetamine-amphetamine 20 mg PO TID@0600,1200,1800 #3 cap 10/01/18 [Adderall XR] gabapentin 300 mg PO BID #14 cap 10/01/18 hydroxyzine HCl 100 mg PO TID #12 tab 10/01/18 ibuprofen 400 mg PO Q4H PRN PRN #0 tab 10/01/18 mometasone [Asmanex Twisthaler] 2 puff INHALATION BID PRN PRN #0 ea 10/01/18 Allergies Allergy/AdvReac Type Severity Reaction Status Date / Time codeine Allergy Severe THROAT Unverified 10/08/18 13:46 SWELLING adhesive Allergy Itching Unverified 10/08/18 13:46 cat dander Allergy Unverified 10/08/18 13:46 pollen extracts Allergy Unverified 10/08/18 13:46 DANDER DUST Allergy Mild Uncoded 10/08/18 13:46 LOTIONS Allergy Unknown Uncoded 10/08/18 13:46 General Stated Complaint: Seizure MAXI: 3 Review of Systems Review of Systems All systems reviewed & are unremarkable except as noted in HPI and below PFSH Social History Smoking/Tobacco Use Status: Current-Occasional Alcohol Intake: never Drug use: Current Sobriety Do you feel safe at home: Yes Do you feel safe in your relationship?: Yes Exam Narrative Exam Narrative: 1.Const: Well-nourished, Well-developed, appearing stated age 2.Eyes: PERRL, no conjunctival injection, and symmetrical lids. 3.ENT: Atraumatic external nose and ears. Notably dry MM. Neck: Symmetric, trachea midline, No thyromegaly. No evidence of tongue biting lesion. 4.CVS: +S1/S2, No murmurs or gallops. Peripheral pulses 2+ and equal in all extremities. Brisk capillary refill in all extremities. 5.RESP: Unlabored respiratory effort. Clear to auscultation bilaterally. No wheezes rales or rhonchi 6.GI: Soft, Nontender/Nondistended, No hepatosplenomegaly. No guarding or rebound. No evidence of bowel or bladder incontinence 7.MSK: Normocephalic/Atraumatic, Extremities w/o deformity or ttp No cyanosis or clubbing, Normal movement of all extremities 8.Skin: Warm, Dry. No rashes or lesions. 9.Neuro: residential driver II-XII grossly intact. Sensation grossly intact, no focal neurologic deficits. All 6 cardinal planes of vision are fully intact. No evidence of rotatory or vertical nystagmus. The patient demonstrated a normal [id number], good dexterity. There was no evidence of dysdiadochokinesia. Patient was able to ambulate without difficulty. There was no wide-based gait. Romberg, and [id number] are both normal on testing. Sensation was intact bilaterally as well as muscle strength bilaterally for all extremities. Patient was able to verbalize butter cup with no slurring, or miss pronunciation. 10.Psych: (AAO) x3. Appropriate mood and affect Course Vital Signs Temperature 37.3 C 11/05/18 18:04 Respiratory Rate 22 11/05/18 18:04 Blood Pressure 164/94 H 11/05/18 18:04 Pulse Oximetry 96 11/05/18 18:04 Temperature 37.3 C 11/05/18 18:04 Temperature Source Temporal Artery Scan 11/05/18 18:04 Respiratory Rate 22 11/05/18 18:04 Respiratory Effort Non-Labored 11/05/18 18:10 Blood Pressure 164/94 H 11/05/18 18:04 Blood Pressure Position Sitting 11/05/18 18:04 Pulse Oximetry 96 11/05/18 18:04 Oxygen Delivery Method Room Air 11/05/18 18:04 Oxygen Flow Rate 0 11/05/18 18:04
[2018-11-05] MEDS: Acetaminophen 500 MG TAB 1000 MG PO (18:22)
--- NOTE | 2018-11-05 18:25 | ED.GENADUL_ITS ---
Discharge Plan Disposition Patient Disposition: HOME Condition: Stable Discharge Details Chief Complaint: Seizure Clinical Impression: Evaluation by medical service required, Headache Primary Care Provider: Sujata Werner ED Provider: David Caldera Home Meds and New Rx's Prescriptions: No Action acetaminophen [Arthritis Pain Relief (acetam)] 650 MG tablet extended release 650 mg PO Q8H PRN RF: 0 lansoprazole 30 MG capsule,delayed release(DR/EC) 30 mg PO DAILY Qty: 90 RF: 3 SHERIN Ankle Brace 1 EACH misc 1 ea Miscellaneous DAILY Qty: 1 RF: 0 promethazine 25 MG tablet 25 mg PO TID PRNQty: 90 RF: 11 spironolactone 25 MG tablet 25 mg PO DAILY Qty: 90 RF: 3 cholecalciferol (vitamin D3) 1,000 UNIT tablet 1,000 unit PO DAILY Qty: 90 RF: 3 cetirizine 10 MG tablet 10 mg PO BID Qty: 180 RF: 3 Lyrica 100 MG capsule 100 mg PO BID Qty: 56 RF: 5 furosemide 40 MG tablet 40 mg PO DAILY Qty: 90 RF: 1 albuterol sulfate [ProAir HFA] 8.5 GM HFA aerosol inhaler 2 puff Inhalation Q4H PRN Qty: 5 RF: 0 Flovent HFA 12 GM HFA aerosol inhaler 110 mcg Inhalation prn bid Qty: 5 RF: 0 Multi 1 EACH tablet 1 ea PO DAILY Qty: 90 RF: 1 Boost 237 ML liquid 237 ml PO AC & HS PRNQty: 120 RF: 3 polyethylene glycol 3350 [Miralax] 17 gram Powder In Packet 17 g PO DAILY PRNRF: 0 calcium carbonate 600 mg calcium (1,500 mg) Tablet 600 mg PO BID RF: 0 clonazepam 1 mg Tablet 1 mg PO BID Qty: 2 RF: 0 hydroxyzine HCl 50 mg Tablet 100 mg PO TID Qty: 12 RF: 0 dextroamphetamine-amphetamine [Adderall XR] 20 mg Capsule,Extended Release 24hr 20 mg PO TID@0600,1200,1800 Qty: 3 RF: 0 cephalexin 500 mg Capsule 1,000 mg PO TID Qty: 34 RF: 0 ibuprofen 400 mg Tablet 400 mg PO Q4H PRN PRNQty: 0 RF: 0 gabapentin 300 mg Capsule 300 mg PO BID Qty: 14 RF: 0 Asmanex Twisthaler 220 mcg (14 doses) Aerosol Powdr Breath Activated 2 puff Inhalation BID PRN PRNQty: 0 RF: 0 Discharge Instructions Instructions: General Headache (ED) Additional Instructions: If you notice any worsening of your symptoms, or any new symptoms such as vomiting, diarrhea, fever, chills, shortness of breath, chest pain, numbness, weakness, or fainting , please return immediately to the emergency department for reevaluation. Please follow up with your primary care provider as soon as possible for reassessment and reevaluation. As always, it was a pleasure participating in your medical care today. Medical Decision Making This is a pleasant 53-year-old female with multiple medical problems including psychogenic nonepileptic seizure. Patient was brought in by state police under police custody for evaluation of seizure. She was placed under arrest earlier today, when she was in the cruiser being told she was going to go to longterm she had a tremor like movement past throughout her body. Immediately after the event she began talking conversing normally with a [place] police officer. He then brought her to the ER for further evaluation. Here in the ER she demonstrates no concerning red flags of fever, nuchal tenderness or rigidity, neurologic deficit, bowel or bladder incontinence, or tongue biting lesions. She is acting and conversing at her baseline here in the ED, with no hint of neurologic deficit, postictal phase, or other abnormality. She denies any current IV or illicit drug use or other illicit substance use. With a benign neurologic exam, did not unremarkable physical exam otherwise, I feel that she can be safely discharged home if she shows no history or exam that is clinically consistent with a life-threatening neurologic abnormality at this time. Feel that the patient's episode in the car may have likely been a psychogenic nonepileptic seizure at most, more likely a stress reaction in general. Patient will be discharged to police custody. She has been given Tylenol for complaint of her mild headache. I have extensively reviewed the treatment plan and jon ruiz instructions with the patient. I have addressed all patient concerns at this time. The patient was made aware of what symptoms to monitor for that would warrant a return to the emergency department. Discussed the plan with the patient, they demonstrate verbal understanding and agreement with our assessment and plan at this time. HPI General Date/Time Provider Initiated Documentation: 11/05/18 18:01 . HPI Narrative: This is a 53-year-old female with a past medical history of bipolar disease, hepatitis, illicit drug abuse, recent frostbite of her fingers secondary to exposure, and psychogenic nonepileptic seizures. She presents today for evaluation of seizure. She is brought in under police custody by the state police. Police state that she was found in a location which was incongruent with the current rules and guidelines set out by her data collection interviewer. Patient was handcuffed and then put in the police cruiser. When the officer told her that she would be going to longterm she started shaking over her entire body. This lasted just for a few seconds, she immediately began having normal conversation after this. Because of this episode she was brought in for evaluation of seizure. Patient has a history of nonepileptic psychogenic seizures. She had no bowel or bladder incontinence, no tongue biting, she denies any chest pain, shortness of breath, vomiting, diarrhea, numbness tingling or weakness. She denies any visual changes, weakness, or other complaint. She does admit to a very mild headache. Patient is most focused on significant repetition that she has innocent, and should not be going to longterm. I informed her that my goal was to evaluate her medically, and I had no say or influence on the legalities component of her current custody situation. The patient denies any other acute complaints. Related Data Home Medications Medication Instructions Recorded Confirmed acetaminophen [Arthritis Pain 650 mg PO Q8H PRN 12/25/16 10/08/18 Relief (acetam)] lansoprazole 30 mg PO DAILY #90 tab-cap 02/11/17 10/08/18 SHERIN Ankle Brace #1 ea 03/05/17 09/07/18 promethazine 25 mg PO TID PRN #90 tab-cap 05/15/17 10/08/18 spironolactone 25 mg PO DAILY #90 tab-cap 05/23/17 10/08/18 cholecalciferol (vitamin D3) 1,000 unit PO DAILY #90 tab-cap 06/18/17 10/08/18 cetirizine 10 mg PO BID #180 tab-cap 07/16/17 09/25/18 Lyrica 100 mg PO BID #56 tab-cap 08/20/17 10/08/18 Boost 237 ml PO AC & HS PRN #120 bottle 08/27/17 10/08/18 Flovent HFA 110 mcg INHALATION prn bid #5 08/27/17 10/08/18 inhaler Multi 1 ea PO DAILY #90 tab 08/27/17 10/08/18 albuterol sulfate [ProAir HFA] 2 puff INHALATION Q4H PRN #5 08/27/17 10/08/18 inhaler furosemide 40 mg PO DAILY #90 tab-cap 08/27/17 10/08/18 calcium carbonate 600 mg PO BID 09/25/18 09/25/18 polyethylene glycol 3350 [Miralax] 17 g PO DAILY PRN 09/25/18 10/08/18 cephalexin 1,000 mg PO TID #34 cap 10/01/18 clonazepam 1 mg PO BID #2 tab 10/01/18 10/08/18 dextroamphetamine-amphetamine 20 mg PO TID@0600,1200,1800 #3 cap 10/01/18 10/08/18 [Adderall XR] gabapentin 300 mg PO BID #14 cap 10/01/18 10/08/18 hydroxyzine HCl 100 mg PO TID #12 tab 10/01/18 10/08/18 ibuprofen 400 mg PO Q4H PRN PRN #0 tab 10/01/18 10/08/18 mometasone [Asmanex Twisthaler] 2 puff INHALATION BID PRN PRN #0 ea 10/01/18 10/08/18 Previous Rx's Medication Instructions Recorded spironolactone 25 mg PO DAILY #90 tab-cap 05/23/17 cholecalciferol (vitamin D3) 1,000 unit PO DAILY #90 tab-cap 06/18/17 cetirizine 10 mg PO BID #180 tab-cap 07/16/17 Lyrica 100 mg PO BID #56 tab-cap 08/20/17 Flovent HFA 110 mcg INHALATION prn bid #5 08/27/17 inhaler Multi 1 ea PO DAILY #90 tab 08/27/17 albuterol sulfate [ProAir HFA] 2 puff INHALATION Q4H PRN #5 08/27/17 inhaler furosemide 40 mg PO DAILY #90 tab-cap 08/27/17 cephalexin 1,000 mg PO TID #34 cap 10/01/18 clonazepam 1 mg PO BID #2 tab 10/01/18 dextroamphetamine-amphetamine 20 mg PO TID@0600,1200,1800 #3 cap 10/01/18 [Adderall XR] gabapentin 300 mg PO BID #14 cap 10/01/18 hydroxyzine HCl 100 mg PO TID #12 tab 10/01/18 ibuprofen 400 mg PO Q4H PRN PRN #0 tab 10/01/18 mometasone [Asmanex Twisthaler] 2 puff INHALATION BID PRN PRN #0 ea 10/01/18 Allergies Allergy/AdvReac Type Severity Reaction Status Date / Time codeine Allergy Severe THROAT Unverified 10/08/18 13:46 SWELLING adhesive Allergy Itching Unverified 10/08/18 13:46 cat dander Allergy Unverified 10/08/18 13:46 pollen extracts Allergy Unverified 10/08/18 13:46 DANDER DUST Allergy Mild Uncoded 10/08/18 13:46 LOTIONS Allergy Unknown Uncoded 10/08/18 13:46 General Stated Complaint: Seizure MAXI: 3 Review of Systems Review of Systems All systems reviewed & are unremarkable except as noted in HPI and below PFSH Social History Smoking/Tobacco Use Status: Current-Occasional Alcohol Intake: never Drug use: Current Sobriety Do you feel safe at home: Yes Do you feel safe in your relationship?: Yes Exam Narrative Exam Narrative: 1.Const: Well-nourished, Well-developed, appearing stated age 2.Eyes: PERRL, no conjunctival injection, and symmetrical lids. 3.ENT: Atraumatic external nose and ears. Notably dry MM. Neck: Symmetric, trachea midline, No thyromegaly. No evidence of tongue biting lesion. 4.CVS: +S1/S2, No murmurs or gallops. Peripheral pulses 2+ and equal in all extremities. Brisk capillary refill in all extremities. 5.RESP: Unlabored respiratory effort. Clear to auscultation bilaterally. No wheezes rales or rhonchi 6.GI: Soft, Nontender/Nondistended, No hepatosplenomegaly. No guarding or rebound. No evidence of bowel or bladder incontinence 7.MSK: Normocephalic/Atraumatic, Extremities w/o deformity or ttp No cyanosis or clubbing, Normal movement of all extremities 8.Skin: Warm, Dry. No rashes or lesions. 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 Sensation grossly intact, no focal neurologic deficits. All 6 cardinal planes of vision are fully intact. No evidence of rotatory or vertical nystagmus. The patient demonstrated a normal [id number], good dexterity. There was no evidence of dysdiadochokinesia. Patient was able to ambulate without difficulty. There was no wide-based gait. R omberg, and [id number] are both normal on testing. Sensation was intact bilaterally as well as muscle strength bilaterally for all extremities. Patient was able to verbalize butter cup with no slurring, or miss pronunciation. 10.Psych: (AAO) x3. Appropriate mood and affect Course Vital Signs Temperature 37.3 C 11/05/18 18:04 Respiratory Rate 22 11/05/18 18:04 Blood Pressure 164/94 H 11/05/18 18:04 Pulse Oximetry 96 11/05/18 18:04 Temperature 37.3 C 11/05/18 18:04 Temperature Source Temporal Artery Scan 11/05/18 18:04 Respiratory Rate 22 11/05/18 18:04 Respiratory Effort Non-Labored 11/05/18 18:10 Blood Pressure 164/94 H 11/05/18 18:04 Blood Pressure Position Sitting 11/05/18 18:04 Pulse Oximetry 96 11/05/18 18:04 Oxygen Delivery Method Room Air 11/05/18 18:04 Oxygen Flow Rate 0 11/05/18 18:04
== END 2018-11-05 18:21 | disposition home or self-care (01) ==
PROVIDERS: Emergency Provider Student in an Organized Health Care Education/Training Program; PCP Family Medicine
DX: R51 Headache (principal)
CPT/HCPCS: 99285; 99282

== ENCOUNTER 2019-11-17 17:05 | Emergency (ER) | payer MEDICAID, SELFPAY ==
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
[2019-11-17 17:09] VITALS: BP 96/70; PULSE 115; RESP 22; O2SAT 99
[2019-11-17] MEDS: Silver Nitrate Stick 1 EACH (17:29)
[2019-11-17] MEDS: Tranexamic Acid 1,000 MG/10 ML VIAL 1000 MG (17:29)
[2019-11-17] MEDS: Normal Saline 1,000 ML 1000 ML IV (17:30)
[2019-11-17 17:42] LABS: Abs Immature Grans 0.01 k/cumm (0.0-0.09); Absolute Basophil Count 0.01 k/cumm (0.0-0.2); Absolute Eosinophil Count 0.06 k/cumm (0.0-0.7); Absolute Lymphocyte Count 1.01 k/cumm (1.2-3.4); Absolute Neutrophil Count 1.62 k/cumm (1.2-6.7); Basophils % 0.3; HCT 37.8 % (36.0-46.0); HGB 12.6 g/dL (12.0-15.5); Immature Grans % 0.3 %; Lymphocytes % 33.6; Mean Corp. HGB Concentration 33.3 g/dL (32.0-36.0); Mean Corpuscular Hemoglobin 31.1 pg (27.0-33.0); Mean Corpuscular Volume 93.3 fL (80-95); Mean Platelet Volume 9.6 fL (8.0-11.0); Neutrophils % 53.8; Platelet Count 142 x1000/uL (130-400); RBC 4.05 m/cumm (4.00-5.20); White Blood Cell Count 3.01 k/cumm (4.4-10.8)
[2019-11-17 17:56] LABS: ALT 121 U/L (14-59); AST 60 U/L (15-37); Albumin 3.3 g/dL (3.4-5.0); Alkaline Phosphatase 68 U/L (46-116); Anion Gap 7.9 mmol/L (3-11); BUN 8 mg/dL (7-18); Bilirubin, Total 0.7 mg/dL (0.2-1.0); CO2 29.1 mmol/L (21.0-32.0); CREATININE 0.71 mg/dL (0.55-1.02); Calcium 8.7 mg/dL (8.5-10.1); Chloride 102 mmol/L (98-107); Glucose 109 mg/dL (74-106); Potassium 3.4 mmol/L (3.5-5.1); Sodium 139 mmol/L (136-145); Total Protein 7.4 g/dL (6.4-8.2)
--- NOTE | 2019-11-17 18:00 | DI.RAD_ITS ---
EXAM: XR KNEE RT 4V AP,LAT,DOREEN,PAT CLINICAL HISTORY: fall. TECHNIQUE: 2D digital imaging was performed. COMPARISON: CHEST 2 VIEWS PA,LAT from 08/19/2017 FINDINGS: BONES: No acute fracture is present. No bony destructive lesion is seen. JOINTS: The knee is normally aligned. There may be a small suprapatellar joint effusion. SOFT TISSUE: Normal. IMPRESSION: No definite acute fracture or dislocation. Follow-up as clinically appropriate. Small suprapatellar joint effusion. DATA REPOSITORY: RADIATION DOSE DELIVERED:
[2019-11-17 18:10] LABS: INR 1.1 (0.9-1.1); PTT Activated 19.8 sec (21.0-31.4); Prothrombin Time 10.9 sec (9.3-11.0)
[2019-11-17] MEDS: Cephalexin 500 MG CAP PO (18:23)
--- NOTE | 2019-11-17 19:09 | DI.VRAD_ITS ---
PROCEDURE INFORMATION: Exam: XR Left Knee Exam date and time: 11/17/2019 6:38 PM Age: 54 years old Clinical indication: Other: Fall TECHNIQUE: Imaging protocol: XR Left knee. Views: 4 or more views. COMPARISON: No relevant prior studies available. FINDINGS: Bones/joints: Bony demineralization is evident. Cortical irregularity is seen along the anterior margin of the patella on the sunrise view without discrete fracture line. Medial, lateral and patellofemoral compartment joint spaces are preserved and there is no other evidence of fracture. Soft tissues: Possible trace fluid in the suprapatellar bursa on the lateral view. IMPRESSION: Bony demineralization with cortical irregularity along the anterior patella without discrete fracture line. Anterior patellar impaction injury is not excluded and correlation with clinical data is requested. Dictated and Authenticated by: Jalil Meadows MD. Ordering:KELLI Villalobos MD
[2019-11-17] MEDS: Doxycycline Hyclate 100 MG CAP PO (19:30)
--- NOTE | 2019-11-17 19:50 | NUR.NOTE ---
Nursing Note:right ear cleansed with NS and h202. Pt given remainder of bottle to clean blood from hair once home. right knee wrapped with flor bandage. RCT notified of need for transportation.
[2019-11-17 19:53] VITALS: BP 110/72; PULSE 91; RESP 16; TEMP 36.7; O2SAT 98
== END 2019-11-21 04:37 | disposition home or self-care (01) ==
LOC: ER 21:27
PROVIDERS: Emergency Provider Physician Assistant; PCP Family Medicine
DX: S01.331A Puncture wound without foreign body of right ear, initial encounter (principal); S00.431A Contusion of right ear, initial encounter; W19.XXXA Unspecified fall, initial encounter; M25.561 Pain in right knee; L03.114 Cellulitis of left upper limb; L03.115 Cellulitis of right lower limb; F42.4 Excoriation (skin-picking) disorder; J44.9 Chronic obstructive pulmonary disease, unspecified; F17.210 Nicotine dependence, cigarettes, uncomplicated; Z86.14 Personal history of Methicillin resistant Staphylococcus aureus infection; F41.9 Anxiety disorder, unspecified
CPT/HCPCS: 80053; 86850; 86900; 86901; 96360; 99284; 73564; 85025; 85610; 85730

== ENCOUNTER 2020-01-09 13:21 | Emergency (ER) | payer MEDICAID, SELFPAY ==
[2020-01-09 13:36] VITALS: BP 127/78; PULSE 114; TEMP 37.9; O2SAT 96
--- NOTE | 2020-01-09 13:41 | W.ED.GENAD ---
Discharge Plan Disposition Patient Disposition: HOME Condition: Stable Discharge Details Chief Complaint: Cellulitis Clinical Impression: Cellulitis of left leg, Contusion of toe, Cellulitis of auricle of ear Primary Care Provider: Sujata Werner ED Provider: Kelly Welsh Home Meds and New Rx's Prescriptions: New amoxicillin-pot clavulanate [Augmentin] 875-125 mg tablet 1 tab PO BID Qty: 20 RF: 0 mupirocin 2 % ointment 1 applic TP TID Qty: 15 RF: 0 Continued acetaminophen [Arthritis Pain Relief (acetam)] 650 MG tablet extended release 650 mg PO Q8H PRN RF: 0 lansoprazole 30 MG capsule,delayed release(DR/EC) 30 mg PO DAILY Qty: 90 RF: 3 (DME) SHERIN Ankle Brace 1 EACH misc 1 ea Miscellaneous DAILY Qty: 1 RF: 0 promethazine 25 MG tablet 25 mg PO TID PRNQty: 90 RF: 11 spironolactone 25 MG tablet 25 mg PO DAILY Qty: 90 RF: 3 cholecalciferol (vitamin D3) 1,000 UNIT tablet 1,000 unit PO DAILY Qty: 90 RF: 3 cetirizine 10 MG tablet 10 mg PO BID Qty: 180 RF: 3 pregabalin [Lyrica] 100 MG capsule 100 mg PO BID Qty: 56 RF: 5 furosemide 40 MG tablet 40 mg PO DAILY Qty: 90 RF: 1 albuterol sulfate [ProAir HFA] 8.5 GM HFA aerosol inhaler 2 puff Inhalation Q4H PRN Qty: 5 RF: 0 Flovent HFA 12 GM HFA aerosol inhaler 110 mcg Inhalation prn bid Qty: 5 RF: 0 Multi 1 EACH tablet 1 ea PO DAILY Qty: 90 RF: 1 Boost 237 ML liquid 237 ml PO AC & HS PRNQty: 120 RF: 3 polyethylene glycol 3350 [Miralax] 17 gram Powder In Packet 17 g PO DAILY PRNRF: 0 calcium carbonate 600 mg calcium (1,500 mg) Tablet 600 mg PO BID RF: 0 clonazepam 1 mg Tablet 1 mg PO BID Qty: 2 RF: 0 hydroxyzine HCl 50 mg Tablet 100 mg PO TID Qty: 12 RF: 0 dextroamphetamine-amphetamine [Adderall XR] 20 mg Capsule,Extended Release 24hr 20 mg PO TID@0600,1200,1800 Qty: 3 RF: 0 ibuprofen 400 mg Tablet 400 mg PO Q4H PRN PRNQty: 0 RF: 0 gabapentin 300 mg Capsule 300 mg PO BID Qty: 14 RF: 0 Asmanex Twisthaler 220 mcg (14 doses) Aerosol Powdr Breath Activated 2 puff Inhalation BID PRN PRNQty: 0 RF: 0 Discontinued cephalexin [Keflex] 500 mg capsule 500 mg PO QID Qty: 20 RF: 0 doxycycline hyclate 100 mg capsule 100 mg PO BID Qty: 10 RF: 0 cephalexin 500 mg Capsule 1,000 mg PO TID Qty: 34 RF: 0 Discharge Instructions Instructions: Cellulitis (ED), Foot Contusion (ED) Additional Instructions: Wash wounds with soap and water once or twice daily. Applied topical antibiotic ointment prescribed 3 times daily. Use antibiotics as prescribed by mouth. Rest activities as tolerated. Please have prompt follow-up with primary care doctor for reevaluation. Have outpatient Covid test in the tent tomorrow. Return for any worsening, concerns or alarming symptoms sooner if needed Discharge Data Discharge Date/Time-TO BE ENTERED AT DEPARTURE: 01/09/20 19:33 Medical Decision Making <SG Schmidt - Last Filed: 01/10/20 10:45> Patient 54-year-old female, well-known to myself, with chief complaint of cellulitis. Patient does have a multitude of complaints and is unclear which are active in which are inactive at this time. Patient is very dramatic, yelling, rambling, flailing her extremities. I have seen the patient historically and this does seem to be baseline. She is alert and oriented x3. Past medical history significant for anxiety, and active TB, drug abuse, alcohol abuse, chronic hepatitis, bipolar, endocarditis, GERD, osteomyelitis, MRSA, depression, chronic pain syndrome, COPD, ADD. Her primary concern at this time seems to be pain in the left great toe. She reports that yesterday she kicked a chair accidentally and believes that she fractured the great toe and second and third digits. She is noted redness, swelling and pain in these areas. States this began after trauma yesterday. Patient also reports that she burned herself a few days ago when she fell asleep on a heating pad on the left lateral thigh. Is noted surrounding erythema and increased discomfort. No discharge. She also reports she believes the cellulitis that have been fairly chronic on the right lower extremity may have come back. Patient also reports her [id number]'s erythema with streaking on the right upper arm. Patient also has chronic swelling and discomfort of the right ear. She denies any chest pain, shortness of breath, nausea/vomiting, no change in bowel or bladder habits. On exam, patient is rambling, anxious, difficult to obtain history and exam from. She does appear to be at her baseline however. Exam of the right ear shows a pink, swollen ear. I did see her for this approximately 2 months ago. The ear is still swollen and pink, it does appear fairly baseline for the patient. Is not warm to the touch, no discharge, no pain with palpation. Exam of the right upper extremity does not reveal any erythema or streaking as had been reportedly concerned by the patient's family. Exam the left lower extremity is significant for circular areas of erythema surrounding 2 small lama consistent with the patient's history. She does report that this has been expanding. This is tender to palpation and warm. I am concerned for possible cellulitis in this area. Exam of the patient's left foot shows swollen, erythematous great toe and second toe. This is quite tender for the patient. I not see any evidence of trauma patient does report that the erythema secondary to trauma rather than infection. States she did injure this 3 days ago. She is 2+ distal pulses, sensation is intact. Patient will not range toe secondary to pain. Exam of the right lower extremity reveals chronic darkening of the skin, do not appreciate any evidence of acute infection. 2+ distal pulses. At this time, patient has multitude of complaints. My primary concern is potential fracture the left foot as well as cellulitis to the left lateral thigh. Patient is febrile with a temp of 37.9, tachycardic with a heart rate of 114. Will hydrate the patient, give IV antibiotics for presumed cellulitis, obtain baseline labs and obtain imaging of the patient's left foot. Patient's overall appearance and my clinical gestalt is limited secondary to the patient's baseline dramatic appearance. Will give Tylenol to help with discomfort and fever. Multiple attempts were made by nursing staff, myself as well as Dr. Pickard for IV access. Patient is an ex-drug user and having difficulty obtaining. Requested OCCUPATIONAL THERAPY PROFESSOR, and to place access. At the end of my shift, patient has just gone over for imaging. Labs are still pending. Care was transitioned to Awilda Pena PA-C. <SG Fowler - Last Filed: 01/10/20 21:41> 54-year-old patient signed out pending lab results as well as ultimate disposition after receiving dose of IV antibiotics. Patient presents with right ear auricle wounds and nape of her neck wound. Patient reports mild weeping from these wounds. Patient also reports left thigh wounds which have surrounding redness which is mildly expanding. No sign of abscess at this site. Patient has a foot contusion she sustained when stubbing her toe 3 days ago. X-ray of the left foot reveals no acute abnormality. Nothing to indicate bony erosions. Patient's labs reveal no leukocytosis. Very minimal elevation of sed rate. C-reactive protein is noted to be elevated. Patient is noted to have a fever which likely is due to her cellulitis at this time. Will consider Covid as a possible source and offer patient outpatient Covid testing. Patient denies dry cough at this time or respiratory symptoms. I find It unlikely however will pursue testing due to fever. Patient is jittery, anxious, intermittently agitated. We discussed her plan of care. Patient does agree with this plan of care. Did recommend close follow-up with PCP. Patient was put on care management specialist list for follow-up with PCP. The patient was stable and requested discharge. Prior to discharge, my usual and customary return precautions were reviewed with the patient - this included follow-up instructions and reasons to return to the Emergency Department if conditions worsens, does not improve as expected, or other new concerns arise. HPI <SG Schmidt - Last Filed: 01/10/20 10:45> General Mode of arrival: ambulatory. Date/Time Provider Initiated Documentation: 01/09/20 13:21. Limitations to Documentation: no limitations. Information obtained by: patient and RN notes reviewed. HPI Narrative: Patient is a 54-year-old female, well-known to the department, with multiple chief complaints. She is area of largest concern is her left foot. She reports that she broke 3 toes last night. She reports that she accidentally kicked a chair and since that time is been having discomfort in the great toe, second and third toes. She denies other injuries in the incident. No fall. Since that time, has noted that the great toe in particular has been erythematous and that she is been having difficulty with ambulation. Patient also reports that she has cellulitis of the right lower extremity. She has had cellulitis in this area multiple times historically. Chronically has swelling of the bilateral lower extremities and associates this with not using her Lasix as frequently as she used to. States she noticed discoloration few days ago. Patient also reports erythema with streaking on the right upper extremity. Patient has not actually seen this but reports that her [id number] noticed it. She also reports a burn to the left lateral thigh. Reports that 2 days ago she fell asleep on a heating pad. Suffered 2 areas of burn. She is noted surrounding erythema, increased pain to this area. Denies any chest pain, shortness of breath, cough. No GI upset. Related Data Home Medications Medication Instructions Recorded Confirmed acetaminophen [Arthritis Pain 650 mg PO Q8H PRN 12/25/16 11/17/19 Relief (acetam)] lansoprazole 30 mg PO DAILY #90 tab-cap 02/11/17 11/17/19 SHERIN Ankle Brace #1 ea 03/05/17 11/17/19 promethazine 25 mg PO TID PRN #90 tab-cap 05/15/17 11/17/19 spironolactone 25 mg PO DAILY #90 tab-cap 05/23/17 11/17/19 cholecalciferol (vitamin D3) 1,000 unit PO DAILY #90 tab-cap 06/18/17 11/17/19 cetirizine 10 mg PO BID #180 tab-cap 07/16/17 11/17/19 pregabalin [Lyrica] 100 mg PO BID #56 tab-cap 08/20/17 11/17/19 Boost 237 ml PO AC & HS PRN #120 bottle 08/27/17 11/17/19 Flovent HFA 110 mcg INHALATION prn bid #5 08/27/17 11/17/19 inhaler Multi 1 ea PO DAILY #90 tab 08/27/17 11/17/19 albuterol sulfate [ProAir HFA] 2 puff INHALATION Q4H PRN #5 08/27/17 11/17/19 inhaler furosemide 40 mg PO DAILY #90 tab-cap 08/27/17 11/17/19 calcium carbonate 600 mg PO BID 09/25/18 11/17/19 polyethylene glycol 3350 [Miralax] 17 g PO DAILY PRN 09/25/18 11/17/19 Asmanex Twisthaler 2 puff INHALATION BID PRN PRN #0 ea 10/01/18 11/17/19 clonazepam 1 mg PO BID #2 tab 10/01/18 11/17/19 dextroamphetamine-amphetamine 20 mg PO TID@0600,1200,1800 #3 cap 10/01/18 11/17/19 [Adderall XR] gabapentin 300 mg PO BID #14 cap 10/01/18 11/17/19 hydroxyzine HCl 100 mg PO TID #12 tab 10/01/18 11/17/19 ibuprofen 400 mg PO Q4H PRN PRN #0 tab 10/01/18 11/17/19 amoxicillin-pot clavulanate 1 tab PO BID #20 tab 01/09/20 [Augmentin] mupirocin 1 applic TP TID #15 gm 01/09/20 Previous Rx's Medication Instructions Recorded spironolactone 25 mg PO DAILY #90 tab-cap 05/23/17 cholecalciferol (vitamin D3) 1,000 unit PO DAILY #90 tab-cap 06/18/17 cetirizine 10 mg PO BID #180 tab-cap 07/16/17 pregabalin [Lyrica] 100 mg PO BID #56 tab-cap 08/20/17 Flovent HFA 110 mcg INHALATION prn bid #5 08/27/17 inhaler Multi 1 ea PO DAILY #90 tab 08/27/17 albuterol sulfate [ProAir HFA] 2 puff INHALATION Q4H PRN #5 08/27/17 inhaler furosemide 40 mg PO DAILY #90 tab-cap 08/27/17 Asmanex Twisthaler 2 puff INHALATION BID PRN PRN #0 ea 10/01/18 clonazepam 1 mg PO BID #2 tab 10/01/18 dextroamphetamine-amphetamine 20 mg PO TID@0600,1200,1800 #3 cap 10/01/18 [Adderall XR] gabapentin 300 mg PO BID #14 cap 10/01/18 hydroxyzine HCl 100 mg PO TID #12 tab 10/01/18 ibuprofen 400 mg PO Q4H PRN PRN #0 tab 10/01/18 amoxicillin-pot clavulanate 1 tab PO BID #20 tab 01/09/20 [Augmentin] mupirocin 1 applic TP TID #15 gm 01/09/20 Allergies Allergy/AdvReac Type Severity Reaction Status Date / Time codeine Allergy Severe THROAT Unverified 01/09/20 13:41 SWELLING adhesive Allergy Itching Unverified 01/09/20 13:41 cat dander Allergy Unverified 01/09/20 13:41 pollen extracts Allergy Unverified 01/09/20 13:41 DANDER DUST Allergy Mild Uncoded 01/09/20 13:41 LOTIONS Allergy Unknown Uncoded 01/09/20 13:41 General Stated Complaint: Cellulitis MAXI: 3 Review of Systems <SG Schmidt - Last Filed: 01/10/20 10:45> Constitutional Constitutional: Reports as per HPI, Denies chills, Reports fever(s), Denies headache(s), Denies lethargy and Denies poor appetite Eyes Eyes: Denies change in vision ENT Ears, Nose, Mouth, and Throat: Denies dizziness and Denies headache(s) Cardiovascular Cardiovascular: Reports as per HPI, Denies dyspnea and Denies dyspnea on exertion Respiratory Respiratory: Reports as per HPI, Denies chest congestion, Denies cough, Denies pain on inspiration, Denies pain with cough, Denies dyspnea, Denies dyspnea on exertion and Denies wheezing Gastrointestinal Gastrointestinal: Reports as per HPI, Denies abdominal pain, Denies diarrhea, Denies nausea and Denies vomiting Musculoskeletal Musculoskeletal: Reports as per HPI and Denies back pain Integumentary/Breasts Skin/Breast: Reports as per HPI Neurologic Neurologic: Reports as per HPI, Denies dizziness and Denies headache(s) Allergic/Immunologic Allergic/Immunologic: Denies wheezing PFSH <SG Schmidt - Last Filed: 01/10/20 10:45> Medical History Acute allergic rhinitis due to pollen (Chronic 05/29/17) Adjustment disorder with mixed anxiety and depressed mood (Chronic 01/23/18) Alcohol abuse (Inactive) Alcohol abuse (Resolved 07/09/14) Asthma (Chronic) Attention deficit disorder (ADD) in adult (Chronic) Bipolar disorder (Chronic) Cervical spondylosis (Chronic) Cervical spondylosis (Chronic 07/09/14) Chronic hepatitis (Chronic) Chronic nausea (Chronic 07/09/14) Chronic osteomyelitis of right shoulder region (Chronic) Chronic pain syndrome (Chronic 10/03/16) Cirrhosis of liver without ascites (Chronic 11/27/16) Congenital connective tissue disorder (Chronic) Daughter with severe Lucille Danlos confirmed by labs. Patient with joint deformities and premature joint destruction. Lab studies to confirm not done-- per pt what difference would it make? COPD (chronic obstructive pulmonary disease) (Chronic 08/23/16) Shoulder CT [facility] 07/2016: emphysema in visualized lung Depression (Chronic 08/23/16) Drug abuse (Inactive) Endocarditis (Resolved) Endometriosis (Resolved) Gastroesophageal reflux disease (Chronic) GERD (gastroesophageal reflux disease) (Chronic 07/09/14) Hepatitis C (Chronic) History of endocarditis (Resolved 07/09/14) requires SBE prophylaxis History of intravenous drug use in remission (Resolved 07/09/14) Inactive tuberculosis (Inactive) treated 1991 Lichen simplex chronicus (Resolved) on bx of lesion on mons pubis. no Rx given. Lichen simplex chronicus (Resolved 07/16/14) on bx of lesion on mons pubis. no rx given since lesion spontaneously regressing. 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) Unremarkable EEG's [facility] 11/2016 and [facility] [place] 12/2016; inpatient Neurology service [facility] [place] 12/2016 Sleep disturbance (Resolved 08/23/16) Staphylococcal infection of skin (Resolved 11/07/16) Thrombocytopenia (Resolved 08/23/16) Tobacco dependence syndrome (Chronic) Social History Smoking/Tobacco Use Status: Current every day Tobacco Type: cigarettes Alcohol Intake: never Drug use: Current Sobriety Do you feel safe at home: Yes Do you feel safe in your relationship?: Yes Exam <SG Schmidt - Last Filed: 01/10/20 10:45> Const General: in distress (rambling, nonlinear thought, flailing her arms), anxious, disheveled and ill appearing chronically Nutritional Appearance: average body habitus and well nourished Orientation: alert, awake and oriented x3 HENMT Head: normal to inspection Ears: hearing grossly normal bilaterally Mouth: mucous membranes dry (appears dry) Chest Chest: normal inspection of the chest, normal palpation of entire chest wall and no crepitus Resp Effort & Inspection: normal respiratory effort, able to speak in complete sentences and no respiratory distress Cardio Rate: regular rate Rhythm: regular rhythm GI Inspection: normal to inspection, no edema and non-distended Palpation: soft, no hepatosplenomegaly, not firm, no guarding, not rigid and nontender Back/Spine/Pelvis Back: no CVA tenderness Thoracic/Lumbar Spine: thoracic and lumbar spine normal to inspection Skin General skin exam: no rashes or lesions noted Neuro General: patient alert, patient awake and patient oriented x3 Cognition: normal cognition Speech: speech normal Gait: normal gait Extrem General: normal to inspection, capillary refill normal, no calf tenderness, normal gait, pedal edema bilaterally (Small amount of edema, right slightly greater than left, chronic skin discoloration as above) and other (Patient is 2+ distal pulses equal bilaterally in all extremities.) Psych Appearance: grossly normal and well kempt Mental Status: mental status grossly normal Speech and Movement: speech and movement normal Course <SG Schmidt - Last Filed: 01/10/20 10:45> Vital Signs Vital signs: Vital Signs Temperature 37.9 C H 01/09/20 13:36 Pulse 114 H 01/09/20 13:36 Blood Pressure 127/78 01/09/20 13:36 Pulse Oximetry 96 01/09/20 13:36 Temperature 37.9 C H 01/09/20 13:36 Temperature Source Temporal Artery Scan 01/09/20 13:36 Pulse 114 H 01/09/20 13:36 Respiratory Effort Non-Labored 01/09/20 13:38 Blood Pressure 127/78 06/06/20 13:36 Blood Pressure Position Supine 01/09/20 13:36 Pulse Oximetry 96 01/09/20 13:36 Oxygen Delivery Method Room Air 01/09/20 13:36 Oxygen Flow Rate 0 01/09/20 13:36 Pain Level 10 01/09/20 13:36 Sign Out <SG Schmidt - Last Filed: 01/10/20 10:45> Sign Out Data: Sign Out Comment: Care transition to Awilda Pena PA-C, with labs and imaging pending. There is a delay in results as patient is uncooperative and difficult to gain access on. She has received oral Tylenol. Concern for cellulitis left thigh and trauma to left great toe. Last updated by Griselda Birch PA at 01/09/20 16:43
[2020-01-09 16:10] VITALS: TEMP 37.9
[2020-01-09] MEDS: Acetaminophen 500 MG TAB 1000 MG PO (16:10)
[2020-01-09 16:11] LABS: Bilirubin Negative (Negative); Blood Trace-intact (Negative); Clarity Clear (Clear); Glucose Negative (Negative); Ketones Negative (Negative); Leukocyte Esterase Negative (Negative); Nitrite Negative (Negative); Specific Gravity 1.015 (1.005-1.025); Urobilinogen 0.2 EU/dL (Up TO 0.2)
[2020-01-09 16:21] LABS: Bacteria Negative HPF (Negative); C & S Indicated? No; Casts Negative LPF (Negative); Crystals Negative HPF (Negative); Epithelial Cells Negative HPF (Negative); Mucus Negative (Negative); Other Cells Negative (Negative); WBC 0-2 HPF (0-5)
[2020-01-09 17:16] LABS: Lactate 0.7 mmol/L (0.6-1.4)
[2020-01-09 17:18] LABS: Abs Immature Grans 0.01 k/cumm (0.0-0.09); Absolute Basophil Count 0.01 k/cumm (0.0-0.2); Absolute Eosinophil Count 0.05 k/cumm (0.0-0.7); Absolute Lymphocyte Count 2.29 k/cumm (1.2-3.4); Absolute Monocyte Count 0.62 k/cumm (0.11-0.7); Absolute Neutrophil Count 4.25 k/cumm (1.2-6.7); Basophils % 0.1; Eosinophils % 0.7; HCT 35.4 % (36.0-46.0); HGB 12.1 g/dL (12.0-15.5); Immature Grans % 0.1 %; Lymphocytes % 31.7; Mean Corp. HGB Concentration 34.2 g/dL (32.0-36.0); Mean Corpuscular Hemoglobin 31.1 pg (27.0-33.0); Mean Platelet Volume 10.3 fL (8.0-11.0); Monocytes % 8.6; Neutrophils % 58.8; Platelet Count 117 x1000/uL (130-400); RBC 3.89 m/cumm (4.00-5.20); RBC Distribution Width 12.6 % (11.7-14.6); White Blood Cell Count 7.23 k/cumm (4.4-10.8)
[2020-01-09 17:25] LABS: ALT 34 U/L (14-59); AST 43 U/L (15-37); Albumin 3.8 g/dL (3.4-5.0); Alkaline Phosphatase 70 U/L (46-116); Anion Gap 11.6 mmol/L (3-11); BUN 14 mg/dL (7-18); Bilirubin, Total 0.9 mg/dL (0.2-1.0); C-Reactive Protein 6.17 mg/dL (0.0-0.3); CO2 25.4 mmol/L (21.0-32.0); CREATININE 1.04 mg/dL (0.55-1.02); Calcium 8.7 mg/dL (8.5-10.1); Chloride 102 mmol/L (98-107); Estimated GFR 55.65 (mL/min/1.73m2); Glucose 100 mg/dL (74-106); Potassium 3.3 mmol/L (3.5-5.1); Sodium 139 mmol/L (136-145); Total Protein 7.6 g/dL (6.4-8.2)
[2020-01-09 17:56] LABS: ESR 36 mm/hr (0-30)
--- NOTE | 2020-01-09 18:10 | DI.RAD_ITS ---
EXAM: XR FOOT LT COMPLETE CLINICAL HISTORY: injury toes 1,2,3. TECHNIQUE: 2D digital imaging was performed. COMPARISON: No exams were available for comparison FINDINGS: BONES: No acute fracture is present. No bony destructive lesion is seen. JOINTS: No dislocation present. SOFT TISSUE: Normal. IMPRESSION: Unremarkable radiographs of the left foot. DATA REPOSITORY: RADIATION DOSE DELIVERED:
[2020-01-09] MEDS: cefTRIAXone 2 GM/50 ML BAG IVPB (18:11)
[2020-01-09] MEDS: LORazepam 2 MG/ML VIAL 1 MG IVP (18:13)
--- NOTE | 2020-01-09 18:14 | DI.VRAD_ITS ---
PROCEDURE INFORMATION: Exam: XR Left Foot Complete Exam date and time: 01/09/2020 5:57 PM Age: 54 years old Clinical indication: Other: Injury toes 1,2,3 TECHNIQUE: Imaging protocol: XR Left foot. Views: 3 or more views. COMPARISON: CR LEFT FOOT COMPLETE 07/10/2017 11:12 AM FINDINGS: Bones/joints: Normal. Soft tissues: Normal. IMPRESSION: No acute findings. Dictated and Authenticated by: Yesika Tomas MD. Ordering:KELLI Villalobos MD
--- NOTE | 2020-01-09 18:14 | ANES_ITS ---
Anesthesia Note Called in acute care nurse practitioner for Intravenous access in ED. Multiple attempts had been made with and without ultrasound by ED staff. Pt is extremely anxious and uncooper ative. Using ultrasound and clean technique, a 20 guage IV catheter was placed in the left Antecubital space in one attempt. The catheter was secured with a tegaderm and tape with an IV extension tubing in place. Report to Dr. Pickard.
[2020-01-09] MEDS: Normal Saline 1,000 ML 1000 ML IV (18:22)
== END 2020-01-09 19:33 | disposition home or self-care (01) ==
PROVIDERS: Physician Assistant; Emergency Provider Physician Assistant; PCP Family Medicine
DX: S90.112A Contusion of left great toe without damage to nail, initial encounter (principal); W22.03XA Walked into furniture, initial encounter; T24.012A Burn of unspecified degree of left thigh, initial encounter; X19.XXXA Contact with other heat and hot substances, initial encounter; L03.116 Cellulitis of left lower limb; H60.11 Cellulitis of right external ear; R50.9 Fever, unspecified; F41.8 Other specified anxiety disorders; F31.9 Bipolar disorder, unspecified; J44.9 Chronic obstructive pulmonary disease, unspecified; F17.210 Nicotine dependence, cigarettes, uncomplicated; F11.21 Opioid dependence, in remission
CPT/HCPCS: 29515; 36415; 80053; 85652; 87040; 96361; 96365; 96375; 99284; 73630; 81003; 81015; 83605; 85025; 86140; J2060

== ENCOUNTER 2020-03-21 18:45 | Observation (INO) | payer MEDICAID, SELFPAY ==
[2020-03-21 18:45] VITALS: BP 126/94; PULSE 117; RESP 18; TEMP 36.6; O2SAT 98
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
[2020-03-21 19:46] LABS: Abs Immature Grans 0.01 10^3/uL (0.0-0.06); Absolute Basophil Count 0.02 10^3/uL (0.0-0.2); Absolute Eosinophil Count 0.04 10^3/uL (0.0-0.7); Absolute Lymphocyte Count 1.36 10^3/uL (1.2-3.4); Absolute Monocyte Count 0.48 10^3/uL (0.1-0.8); Absolute Neutrophil Count 2.93 10^3/uL (1.2-6.7); Basophils % 0.4; Eosinophils % 0.8; HCT 39.8 % (36.0-46.0); HGB 13.1 g/dL (11.2-15.7); Immature Grans % 0.2; Lymphocytes % 28.1; MCH 29.6 pg (27.0-33.0); MCHC 32.9 % (32.0-36.0); MPV 9.6 fL (8.0-11.0); Monocytes % 9.9; Neutrophils % 60.6; Nucleated RBC 0 %; Platelet Count 189 10^3/uL (130-400); RBC 4.42 10^6/uL (3.93-5.22); RDW 13.1 % (11.7-14.6); RDW-SD 42.8 fL; WBC 4.84 10^3/uL (4.4-10.8)
[2020-03-21 20:02] LABS: ALT 28 U/L (14-59); AST 24 U/L (15-37); Albumin 3.7 g/dL (3.4-5.0); Alkaline Phosphatase 78 U/L (46-116); Anion Gap 12.7 mmol/L (3-11); BUN 21 mg/dL (7-18); Bilirubin, Total 0.4 mg/dL (0.2-1.0); CO2 27.3 mmol/L (21.0-32.0); CREATININE 1.99 mg/dL (0.55-1.02); Calcium 8.9 mg/dL (8.5-10.1); Chloride 95 mmol/L (98-107); Estimated GFR 26.21 (mL/min/1.73m2); Glucose 103 mg/dL (74-106); Potassium 3.7 mmol/L (3.5-5.1); Sodium 135 mmol/L (136-145); Total Protein 8.4 g/dL (6.4-8.2)
[2020-03-21 20:20] LABS: ETHANOL BLOOD < 3.0 mg/dL (<3)
--- NOTE | 2020-03-21 20:21 | NUR.NOTE ---
Nursing Note: Patient reported I think I'm going to have a seizure. This RN in to assess patient, patient hyperventilating, talking in full sentences, crying. Stated I feel like I'm going to black out. Tech then reports patient seizing. Upon assessment of patient, noted to be flailing arms, eyes closed. Once bed moved away from wall patient opened eyes and immediately stated I'm sorry!. SG Birch at bedside for assessment. No post-ictal state noted.
[2020-03-21 20:24] VITALS: BP 173/105; PULSE 114; RESP 23; O2SAT 97
--- NOTE | 2020-03-21 20:35 | NUR.NOTE ---
Nursing Note: Open sore noted to right ear. Patient reports that is the ear infection. No antibiotics are helping it anymore.
[2020-03-21] MEDS: Ondansetron O.D.T. 4 MG TABEF (21:05)
--- NOTE | 2020-03-21 21:05 | NUR.NOTE ---
Nursing Note: Patient vomited. Has been hyperventilating and crying majority of stay so far. Medicated with ODT Zofran. Mental Health zoom interview starting. Will attempt IV access when that is completed to begin IV hydration.
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
[2020-03-21] MEDS: Normal Saline 1,000 ML 1000 ML IV (22:00)
[2020-03-21 22:05] VITALS: BP 139/97; PULSE 92; RESP 18; TEMP 37.1; O2SAT 100
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
[2020-03-21] MEDS: CLINDAMYCIN 600 MG/50 ML BAG 100 MG IVPB (22:08)
--- NOTE | 2020-03-21 22:25 | NUR.NOTE ---
Nursing Note: Patient has had numerous bouts of vomiting since arrival to ER. Awaiting Phenergan order. Will hold on oral Doxycycline until vomiting is under control.
--- NOTE | 2020-03-21 22:41 | NUR.NOTE ---
Nursing Note: Approximately 5 minutes after Clindamycin infusion, IV infiltrated. Patient continuously moving around. IV removed.
[2020-03-21] MEDS: Promethazine 25 MG SUPP PR (22:49)
--- NOTE | 2020-03-21 22:54 | NUR.NOTE ---
Nursing Note: Discussed with Dr Enriquez. As patient lost IV access will not attempt another at this time. Patient received approximately 400ml of Normal Saline and first dose of IV Clindamycin prior to IV infiltration. Provided patient with Phenergan Suppository which patient was able to place independently. Awaiting bed placement.
--- NOTE | 2020-03-21 23:10 | NUR.NOTE ---
Nursing Note: Per patient's request, update on plan of care provided to patient's daughter Joshua.
[2020-03-21 23:25] VITALS: BP 128/68; PULSE 103; RESP 20; O2SAT 98
[2020-03-21 23:47] VITALS: BP 128/68; PULSE 103; RESP 20; O2SAT 98
[2020-03-22] MEDS: Acetaminophen 325 MG TAB 650 MG PO (00:27)
[2020-03-22] MEDS: clonazePAM 1 MG TAB PO ×3 (01:10→18:41)
[2020-03-22 01:29] LABS: Bilirubin Negative (Negative); Blood Negative (Negative); Clarity Clear (Clear); Glucose Negative (Negative); Ketones Negative (Negative); Leukocyte Esterase Negative (Negative); Nitrite Negative (Negative); Urobilinogen 0.2 EU/dL (Up TO 0.2); pH 5.5 (5-8)
[2020-03-22 01:41] LABS: *AMPHETAMINES SCREEN URINE Negative (Negative); *BARBITURATES SCREEN URINE Negative (Negative); *BENZODIAZEPINES SCREEN URINE Negative (Negative); Cannabinoids THC POSITIVE (Negative); Cocaine Screen,Urine Negative (Negative); METHADONE URINE SCREEN POSITIVE (Negative); OPIATES URINE SCREEN Negative (Negative)
[2020-03-22 01:45] LABS: Tricyclic Antidepressants POSITIVE (Negative)
--- NOTE | 2020-03-22 08:51 | CMSP_ITS ---
- If Service Date Differs Date of service: 03/22/20 Time of Service: 08:51 Care Management Safety Plan VOLUNTARY FOR INPATIENT PSYCHIATRIC STABILIZATION. Patient is appropriate in all interactions since arriving at [facility]; Patient has demonstrated appropriate coping and communication skills, has articulated her needs and concerns and is fully engaged during staff interactions. Joe has requested she be able to contact her daughter in [place] and would like her cell phone. CM has hudd led with the care team and agreed to the updates in the safety plan. Safety plan has been established with patient, and care team, to adhere to patient goals, identify restrictions based on behavioral status, address nutrition, and determine allowed personal belongings, tools for hygiene and personal care. Determine level of activity including ambulation, level of supervision, visitors, and determine privileges based on behaviors and level of engagement by patient. Huddle: Manager Client Service, Nadiya, RN, Priya, Primary RN, Dr. Marc at [phone]. Mental health huddle with [facility] prior to the huddle SAFETY PLAN: 1. Will remain on suicide precautions and in paper clothes. 2. Will remain in room under direct supervision of one-on-one staff at all times provided by CPS; MORTEZA, MODEL DRESSER dental laboratory worker. 3. May have paper cups, plates, finger foods as well as a metal spoon to be accounted for after her meal. 4. Follow [facility] Management of the Admitted Behavioral Health Patient policy. 5. Comfort bath system only while in the ED. If moved to med/surg, Joe will be allowed to shower with supervision. 6.Personal belongings at the discretion of staff. 7. Visitors-No visitors at this time. 8. Activities: Joe may have her cell phone for activities it will need to be charged outside the room. She may have television, reading material,coloring and crayons 9. Bathroom privileges: While in the ED, must be accompanied by staff. Can use bathroom in her room without supervision if moved to med/surg. 10. Phone: Joe may have her self phone, and understand if at any time she becomes agitated or unsafe the phone will be removed until she is able to regroup and engage with staff. 11. Due to VOLUNTARY status, if patient wishes to leave [facility], the [facility] roller shop utility worker must be contacted to re-evaluate patient prior to patient exiting the building. Referrals sent by [facility] to all facilities in [place] including [facility] in [place]. Patient is currently voluntarily at [facility] and seeking inpatient admission when a bed becomes available. [facility] Frontline Draw Machine Operator will continue seeking placement. Please contact the Booking Supervisor Utility Bagger ([phone]) and [facility] Draw Machine Operator ([phone]) for any needed changes in the Safety Plan. Safety plan has been provided to interdepartmental care team.
[2020-03-22] MEDS: Doxycycline Hyclate 100 MG CAP PO (10:16)
[2020-03-22] MEDS: Lansoprazole 30 MG CAPCR PO (10:16)
[2020-03-22] MEDS: Pregabalin 100 MG CAP PO ×2 (10:17→21:57)
[2020-03-22 10:37] LABS: Anion Gap 6.4 mmol/L (3-11); BUN 22 mg/dL (7-18); CO2 33.6 mmol/L (21.0-32.0); CREATININE 1.23 mg/dL (0.55-1.02); Calcium 8.5 mg/dL (8.5-10.1); Chloride 98 mmol/L (98-107); Estimated GFR 45.67 (mL/min/1.73m2); Glucose 103 mg/dL (74-106); Potassium 3.2 mmol/L (3.5-5.1); Sodium 138 mmol/L (136-145)
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
[2020-03-22] MEDS: Cetirizine 10 MG TAB PO (13:30)
[2020-03-22] MEDS: CLINDAMYCIN 600 MG/50 ML BAG 100 MG IVPB (14:23)
[2020-03-22 14:26] LABS: COVID-19 RT-PCR UVMMC Result Negative (Negative)
--- NOTE | 2020-03-22 15:28 | PGE_ITS ---
Date of Service Date of service: 03/22/20 Time of Service: 15:29 Assessment and Plan Assessment and plan (1) Suicidal ideation: Status: Acute Assessment and plan: One on One. Waiting for placement in psychiatric facility (2) Bipolar disorder: Status: Chronic Assessment and plan: Cont Remeron nightly, clonazepam 1mg BID. (3) Ulcer of external ear: Status: Acute Assessment and plan: Questionable whether there is an active infection or not. Give another IV dose of clindamycin then change to po. Needs bx to r/o malignancy; outpt referral to ENT will be needed. Subjective Subjective Patient reports: no new complaints Interval history since last seen: Still has SI but no plan. Very concerned about the R ear lesion; states she needs IV antibiotics. Exam Const General: cooperative Nutritional Appearance: overweight HENMT Outer ear/TM images: 1. ulceration with exposed cartilage. No purulent drainage or surrounding erythema. Resp Effort & Inspection: normal respiratory effort Auscultation: clear to auscultation bilaterally Cardio Rate: regular rate Rhythm: regular rhythm Heart Sounds: S1 normal and S2 normal Extrem General: no clubbing, cyanosis or edema Psych Appearance: disheveled Speech and Movement: pressured speech Mood: anxious mood Affect: animated and anxious affect Attitude: cooperative Objective Objective Clinical Data: Abnormal lab results 03/21/20 03/22/20 03/22/20 Range/Units 19:35 01:20 10:20 Sodium 135 L (136-145) mmol/L Potassium 3.2 L (3.5-5.1) mmol/L Chloride 95 L (98-107) mmol/L Carbon Dioxide 33.6 H (21.0-32.0) mmol/L Anion Gap 12.7 H (3-11) mmol/L BUN 21 H 22 H (7-18) mg/dL Creatinine 1.99 H 1.23 H D (0.55-1.02) mg/dL Total Protein 8.4 H (6.4-8.2) g/dL Urine Methadone Screen Positive A (Negative) Ur Tricyclics Screen Positive A (Negative) Ur THC Screen Positive A (Negative) Vital Signs Temperature 37.1 C 03/21/20 22:05 Temperature Source Temporal Artery Scan 03/21/20 22:05 Pulse 103 H 03/21/20 23:47 Pulse Rhythm Regular 03/22/20 00:30 Respiratory Rate 20 08/17/20 23:47 Respiratory Effort Non-Labored 03/22/20 00:30 Respiratory Depth Normal 03/22/20 00:30 Respiratory Pattern Normal 03/22/20 00:30 Blood Pressure 128/68 03/21/20 23:47 Blood Pressure Position Sitting 03/21/20 18:45 Pulse Oximetry 98 03/21/20 23:47 Oxygen Delivery Method Room Air 03/21/20 23:47 Oxygen Flow Rate 0 03/21/20 23:47 Pain Level 10 03/21/20 23:25 Intake & Output 03/21/20 03/22/20 03/22/20 23:59 11:59 23:59 Intake Total 450 / 450 480 / 480 Balance 450 / 450 480 / 480 Weight 63.503 kg 63.503 kg Intake: IV 450 / 450 Oral 480 / 480 Other: Voiding Methods Toilet Laboratory Results WBC 4.84 10^3/uL (4.4-10.8) 03/21/20 19:35 RBC 4.42 10^6/uL (3.93-5.22) 03/21/20 19:35 Hgb 13.1 g/dL (11.2-15.7) 03/21/20 19:35 Hct 39.8 % (36.0-46.0) 03/21/20 19:35 MCV 90.0 fL (80-95) 03/21/20 19:35 MCH 29.6 pg (27.0-33.0) 03/21/20 19:35 MCHC 32.9 % (32.0-36.0) 03/21/20 19:35 RDW 13.1 % (11.7-14.6) 03/21/20 19:35 Plt Count 189 10^3/uL (130-400) 03/21/20 19:35 MPV 9.6 fL (8.0-11.0) 03/21/20 19:35 Immature Gran % 0.2 03/21/20 19:35 Neutrophils % 60.6 03/21/20 19:35 Lymphocytes % 28.1 03/21/20 19:35 Monocytes % 9.9 03/21/20 19:35 Eosinophils % 0.8 03/21/20 19:35 Basophils % 0.4 08/17/20 19:35 Absolute Neutrophils 2.93 10^3/uL (1.2-6.7) 03/21/20 19:35 Absolute Lymphocytes 1.36 10^3/uL (1.2-3.4) 03/21/20 19:35 Absolute Monocytes 0.48 10^3/uL (0.1-0.8) 03/21/20 19:35 Absolute Eosinophils 0.04 10^3/uL (0.0-0.7) 03/21/20 19:35 Absolute Basophils 0.02 10^3/uL (0.0-0.2) 03/21/20 19:35 Sodium 138 mmol/L (136-145) 03/22/20 10:20 Potassium 3.2 mmol/L (3.5-5.1) L 03/22/20 10:20 Chloride 98 mmol/L (98-107) 03/22/20 10:20 Carbon Dioxide 33.6 mmol/L (21.0-32.0) H 03/22/20 10:20 Anion Gap 6.4 mmol/L (3-11) 03/22/20 10:20 BUN 22 mg/dL (7-18) H 03/22/20 10:20 Creatinine 1.23 mg/dL (0.55-1.02) H D 03/22/20 10:20 Estimated GFR/1.73 m2 45.67 (mL/min/1.73m2) 03/22/20 10:20 Glucose 103 mg/dL (74-106) 03/22/20 10:20 Calcium 8.5 mg/dL (8.5-10.1) 03/22/20 10:20 Total Bilirubin 0.4 mg/dL (0.2-1.0) 03/21/20 19:35 AST 24 U/L (15-37) 03/21/20 19:35 ALT 28 U/L (14-59) 03/21/20 19:35 Alkaline Phosphatase 78 U/L (46-116) 03/21/20 19:35 Total Protein 8.4 g/dL (6.4-8.2) H 03/21/20 19:35 Albumin 3.7 g/dL (3.4-5.0) 03/21/20 19:35 Urine Color Yellow (Yellow) 03/22/20 01:20 Urine Clarity Clear (Clear) 03/22/20 01:20 Urine pH 5.5 (5-8) 03/22/20 01:20 Ur Specific [place] 1.020 (1.005-1.025) 03/22/20 01:20 Urine Protein Negative mg/dL (Negative) 03/22/20 01:20 Urine Ketones Negative mg/dL (Negative) 03/22/20 01:20 Urine Blood Negative (Negative) 03/22/20 01:20 Urine Nitrite Negative (Negative) 03/22/20 01:20 Urine Bilirubin Negative (Negative) 03/22/20 01:20 Urine Urobilinogen 0.2 EU/dL (Up TO 0.2) 03/22/20 01:20 Ur Leukocyte Esterase Negative (Negative) 03/22/20 01:20 Urine Glucose Negative mg/dL (Negative) 03/22/20 01:20 Urine Opiates Screen Negative (Negative) 03/22/20 01:20 Urine Methadone Screen Positive (Negative) A 03/22/20 01:20 Ur Barbiturates Screen Negative (Negative) 03/22/20 01:20 Ur Tricyclics Screen Positive (Negative) A 03/22/20 01:20 Ur Amphetamines Screen Negative (Negative) 03/22/20 01:20 U Benzodiazepines Scrn Negative (Negative) 03/22/20 01:20 Urine Cocaine Screen Negative (Negative) 03/22/20 01:20 Ur THC Screen Positive (Negative) A 03/22/20 01:20 Ethyl Alcohol < 3.0 mg/dL (<3) 03/21/20 19:35 COVID-19 PCR Negative (Negative) 03/21/20 22:30 Nasopharyn COVID-19 PCR Not Applicable 03/21/20 22:30 Ref Test Perform Site [place] 03/21/20 22:30
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
[2020-03-22] MEDS: Cyclobenzaprine 10 MG TAB PO ×2 (17:14→22:04)
[2020-03-22] MEDS: Ibuprofen 600 MG TAB PO (17:14)
[2020-03-22] MEDS: Pregabalin 100 MG CAP (17:18)
--- NOTE | 2020-03-22 17:24 | PHA.REVIEW ---
Pharmacy Admission Review - Admission Clinical Review (Last Reviewed 03/21/20 @ 21:53 by Aureliano Tong MD) Ulcer of external ear (Acute) Suicidal ideation (Acute) Chronic infection of right external ear (Acute) Cellulitis of external ear (Acute) Vomiting (Acute) codeine Allergy (Severe, Unverified 03/21/20 18:49) THROAT SWELLING adhesive Allergy (Unverified 03/21/20 18:49) Itching cat dander Allergy (Unverified 03/21/20 18:49) pollen extracts Allergy (Unverified 03/21/20 18:49) DANDER DUST Allergy (Mild, Uncoded 03/21/20 18:49) LOTIONS Allergy (Unknown, Uncoded 03/21/20 18:49) Height 4 ft 11 in Weight 63.503 kg - Renal Dosing Renal Dosing: BUN 22 mg/dL (7-18) H 03/22/20 10:20 Creatinine 1.23 mg/dL (0.55-1.02) H D 03/22/20 10:20 Medications needing adjustments: Reviewed (Crcl ~37.9 mL/min. ibuprofen-use caution, not recommedned in pts with intercurrent disease that increases risk of LEWIS) List of meds needing interventions: multiple meds will need adjustment if Crcl drops below 30 mL/min - Anticoagulation Anticoagulation: Hgb 13.1 g/dL (11.2-15.7) 03/21/20 19:35 Hct 39.8 % (36.0-46.0) 03/21/20 19:35 Plt Count 189 10^3/uL (130-400) 03/21/20 19:35 Creatinine 1.23 mg/dL (0.55-1.02) H D 03/22/20 10:20 DVT Prohphylaxis: N/A - Opiate Usage Evaluate Pain Scale/Pains Meds: N/A - Relevant Labs Sodium 138 mmol/L (136-145) 03/22/20 10:20 Potassium 3.2 mmol/L (3.5-5.1) L 03/22/20 10:20 Chloride 98 mmol/L (98-107) 03/22/20 10:20 Electrolytes, C-Reactive P, ESR: Intervened (no replacement ordered, overnight provider made aware. Plan is to recheck tomorrow and check a mag level as well. Spironolactone may help this (pt received decreased dose this morning before home med list was updated)) - DM Control DM Control: Glucose 103 mg/dL (74-106) 03/22/20 10:20 Insulin Dosing: N/A - Heart Failure/MO EF%, SHERIN's, B-Blockers, Diuretics: N/A - BP Control If elevated: Reviewed (HR- 103 yesterday, BP within normal limits yesterday. No labs so far today.) - Qtc Review If Elevated: N/A - IV to PO Switch IV Medications: N/A - Home Meds Home Med List reviewed: Intervened (updated home med list based on 2 pcp's list (in the middle of transitioning providers), unable to confirm some OTC meds. Separate admin of calcium and multivitamin. Ibuprofen may diminish the therapeutic effect of furosemide; furosemide may increase the nephrotoxic effect of ibuprofen.) Relevent Home Meds Not ordered & why?: calcium, cholecalciferol, furosemide, multivitamin, miralax, promethazine - Current meds Current Medication Order Review: Intervened (adderall xr ordered TID, often held in suicidal pts, made provider aware was discontinued then ordered once daily. Updated provider once home med list was updates so current med orders could be updated. Adjusted timing of lansoprazole basd on med administration timing policy.) - Comments Comments/Follow Ups: Watch mag, K+, Crcl, and for med changes (possible K+ replacement tomorrow, possible renal dosing adjustements). Antibiotic Activity - Pharmacy Antibiotic Review Pharmacy Antibiotic Activity: IV to PO (doxycycline changed to IV clindamycin X1 dose then to PO clindamycin)
[2020-03-22] MEDS: LORazepam 1 MG TAB PO (18:42)
[2020-03-22 18:55] VITALS: BP 131/72; PULSE 110; RESP 18; TEMP 36.7; O2SAT 98
--- NOTE | 2020-03-22 19:07 | CMPROGNOTE_ITS ---
- If Service Date Differs Date of service: 03/22/20 Time of Service: 19:07 Care Management Progress Note HARISH was paged to meet with Joe, as she was asking to leave AMA. HARISH paged [facility] trade union official collar worker, Chiara, and coordinated a zoom meeting. HARISH met with Joe who was very upset and stating that she was going to leave. She denies SI/HI, stating that she is very depressed and needs help with housing. She reports being very concerned with her ear infection. Zoom meeting was held between [facility] and Chiara, HARISH was also involved in the call. Per Chiara, she does not meet criteria to be held involuntarily. Joe agreed to stay at [facility] while her ear is being treated, and she is taking her meds. Joe requested to speak with HARISH Rooney tomorrow to make a discharge plan. Will re evaluate in the morning. HARISH will continue to follow.
--- NOTE | 2020-03-22 19:11 | W.INMHPGNOTE ---
Date of service: 03/22/20 Time of Service: 19:11 Mental Health Crisis Note Presenting Issue How did you arrive at the ED and why did you come: Client arrived at the ED last night with SI. Precipitating Factors Client had agreed to stay voluntarily for inpatient treatment. Client was reporting to hospital staff that she wanted to leave. This typewriter mechanic spoke with client and she was reporting that she will not hurt herself and is willing to stay. Disposition BEHAVIOR: Client was agitated when this typewriter mechanic tried to talk to her, she eventually calmed down enough to speak with this typewriter mechanic. During the time this typewriter mechanic spoke with client, she was hysterically crying and it was difficult at times to understand her. EYE CONTACT: eye MOOD: sad and depressed AFFECT: Normal APPETITE: not reported SLEEP(trouble falling/staying asleep: not reported Plan This typewriter mechanic spoke with Elayne the career portals teacher and it was agreed that as long as client is willing to stay voluntarily, she will stay. Client is not reporting any SI or HI and if she wants to leave, she will be free to do so. Signature Clinician's Name/Title: Gwen Shaffer [facility] Emergency Clinician
[2020-03-22] MEDS: Mirtazapine 15 MG TAB PO (21:57)
[2020-03-22] MEDS: Clindamycin 300 MG CAP PO (21:58)
[2020-03-23] MEDS: LORazepam 1 MG TAB PO ×4 (00:13→14:22)
[2020-03-23 04:41] VITALS: BP 129/74; PULSE 105; RESP 19; TEMP 36.8; O2SAT 96
[2020-03-23] MEDS: clonazePAM 1 MG TAB PO (08:28)
[2020-03-23] MEDS: Pregabalin 100 MG CAP PO ×2 (08:28→13:46)
[2020-03-23] MEDS: Spironolactone 50 MG TAB PO (08:28)
[2020-03-23] MEDS: Lansoprazole 30 MG CAPCR PO (08:28)
[2020-03-23] MEDS: Clindamycin 300 MG CAP PO ×2 (08:29→13:46)
[2020-03-23] MEDS: Cetirizine 10 MG TAB PO (08:29)
[2020-03-23 08:45] VITALS: TEMP 38
--- NOTE | 2020-03-23 09:14 | CMSP_ITS ---
- If Service Date Differs Date of service: 03/23/20 Time of Service: 09:15 Care Management Safety Plan VOLUNTARY FOR INPATIENT PSYCHIATRIC STABILIZATION. Patient is appropriate in all interactions since arriving at [facility]; Patient has demonstrated appropriate coping and communication skills, has articulated her needs and concerns and is fully engaged during staff interactions. Joe has requested she be able to contact her daughter in [place] and would like her cell phone. CM has hudd led with the care team and agreed to the updates in the safety plan. Safety plan has been established with patient, and care team, to adhere to patient goals, identify restrictions based on behavioral status, address nutrition, and determine allowed personal belongings, tools for hygiene and personal care. Determine level of activity including ambulation, level of supervision, visitors, and determine privileges based on behaviors and level of engagement by patient. Huddle: SAFETY PLAN: 1. Will remain on suicide precautions and in paper clothes. 2. Will remain in room under direct supervision of one-on-one staff at all times provided by CPS; MORTEZA, DISTRIBUTION AGENT quality assurance calibrator. 3. May have paper cups, plates, finger foods as well as a metal spoon to be accounted for after her meal. 4. Follow [facility] Management of the Admitted Behavioral Health Patient policy. 5. Comfort bath system only while in the ED. If moved to med/surg, Joe will be allowed to shower with supervision. 6.Personal belongings at the discretion of staff. 7. Visitors-No visitors at this time. 8. Activities: Joe may have her cell phone for activities it will need to be charged outside the room. She may have television, reading material,coloring and crayons 9. Bathroom privileges: While in the ED, must be accompanied by staff. Can use bathroom in her room without supervision if moved to med/surg. 10. Phone: Joe may have her self phone, and understand if at any time she becomes agitated or unsafe the phone will be removed until she is able to regroup and engage with staff. 11. Due to VOLUNTARY status, if patient wishes to leave [facility], the [facility] clay worker must be contacted to re-evaluate patient prior to patient exiting the building. Referrals sent by HARISH to all facilities [place] [facility] [place] Malgorzata has requested BNP, TSH, EKG, ENT consult, Urine dip and UDS. HARISH has requested orders from and contacted and placed the referral. He will contact directly. Patient is currently voluntarily at [facility] and seeking inpatient admission when a bed becomes available. [facility] Frontline Residential Carpenter will continue seeking placement. Please contact the Embroidery Specialist Extension Supervisor ([phone]) and [facility] Residential Carpenter ([phone]) for any needed changes in the Safety Plan. Safety plan has been provided to interdepartmental care team.
[2020-03-23 09:59] VITALS: BP 111/73; PULSE 103; RESP 20; TEMP 37.8; O2SAT 98
[2020-03-23 10:17] LABS: NT-proBNP 31 pg/mL (<300); TSH (W/Ref FT4) 1.03 uIU/mL (0.36-3.74)
[2020-03-23] MEDS: Cyclobenzaprine 10 MG TAB PO (11:46)
[2020-03-23 12:27] LABS: Bilirubin Negative (Negative); Blood Trace-intact (Negative); Clarity Clear (Clear); Glucose Negative (Negative); Ketones Negative (Negative); Leukocyte Esterase Negative (Negative); Nitrite Negative (Negative); Urobilinogen 0.2 EU/dL (Up TO 0.2)
[2020-03-23 12:39] LABS: WBC 0-2 HPF (0-5)
[2020-03-23 12:40] LABS: *AMPHETAMINES SCREEN URINE POSITIVE (Negative); *BARBITURATES SCREEN URINE Negative (Negative); *BENZODIAZEPINES SCREEN URINE Negative (Negative); Bacteria Rare HPF (Negative); C & S Indicated? No; Cannabinoids THC POSITIVE (Negative); Casts Negative LPF (Negative); Cocaine Screen,Urine Negative (Negative); Crystals Negative HPF (Negative); Epithelial Cells Moderate HPF (Negative); METHADONE URINE SCREEN POSITIVE (Negative); Mucus Negative (Negative); OPIATES URINE SCREEN Negative (Negative)
[2020-03-23 12:42] LABS: Tricyclic Antidepressants POSITIVE (Negative)
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
--- NOTE | 2020-03-23 14:21 | W.PM.PROGNOT ---
Date of Service Date of service: 03/23/20 Time of Service: 14:21 Assessment and Plan Assessment and plan (1) Ulcer of external ear: Status: Acute Assessment and plan: Planning outpt eval with ENT for bx. Cont Clindamycin 300mg po TID Qualifiers: Non-pressure ulcer stage: with fat layer exposed Qualified Code(s): L98.492 - Non-pressure chronic ulcer of skin of other sites with fat layer exposed (2) Suicidal ideation: Status: Acute Assessment and plan: No longer endorses SI. Planning d/c. ancillary services manager therapy involved with arranging outpt resources and f/u. (3) Bipolar disorder: Status: Chronic Assessment and plan: Cont current meds. High anxiety state with hypomania. Subjective Subjective Patient reports: no new complaints Interval history since last seen: Continues to be anxious. + pseudoseizure like activity this afternoon. Exam Const General: cooperative Nutritional Appearance: average body habitus Orientation: alert HENMT Outer ear/TM images: 1. ulceration with exposed cartilage. No purulent drainage. Resp Effort & Inspection: normal respiratory effort Auscultation: clear to auscultation bilaterally Cardio Rate: regular rate Rhythm: regular rhythm Heart Sounds: S1 normal and S2 normal Psych Appearance: grossly normal Speech and Movement: pressured speech Mood: anxious mood Affect: labile affect Attitude: cooperative Thought Process: tangential Objective Objective Clinical Data: Abnormal lab results 03/23/20 03/23/20 Range/Units 12:15 12:15 Urine Blood Trace-intact H (Negative) Urine RBC 5-10 H (0-2) HPF Urine Methadone Screen Positive A (Negative) Ur Tricyclics Screen Positive A (Negative) Ur Amphetamines Screen Positive A (Negative) Ur THC Screen Positive A (Negative) Vital Signs Temperature 37.8 C H 03/23/20 09:59 Temperature Source Tympanic 03/23/20 08:45 Pulse 103 H 03/23/20 09:59 Pulse Rhythm Regular 03/23/20 09:31 Respiratory Rate 20 03/23/20 09:59 Respiratory Effort Non-Labored 03/23/20 09:31 Respiratory Depth Normal 03/23/20 09:31 Respiratory Pattern Normal 03/23/20 09:31 Blood Pressure 111/73 03/23/20 09:59 Blood Pressure Position Sitting 03/21/20 18:45 Pulse Oximetry 98 03/23/20 09:59 Oxygen Delivery Method Room Air 03/23/20 09:59 Oxygen Flow Rate 0 03/23/20 09:59 Pain Level 0 03/22/20 18:55 Comment 03/23/20 08:45 Intake & Output 03/22/20 03/23/20 03/23/20 23:59 11:59 23:59 Intake Total 1250 / 1250 Balance 1250 / 1250 Intake: Oral 1250 / 1250 Other: Comment voids independently in the bathroom. No issues raised Voiding Methods Toilet Toilet Laboratory Results WBC 4.84 10^3/uL (4.4-10.8) 03/21/20 19:35 RBC 4.42 10^6/uL (3.93-5.22) 03/21/20 19:35 Hgb 13.1 g/dL (11.2-15.7) 03/21/20 19:35 Hct 39.8 % (36.0-46.0) 03/21/20 19:35 MCV 90.0 fL (80-95) 03/21/20 19:35 MCH 29.6 pg (27.0-33.0) 03/21/20 19:35 MCHC 32.9 % (32.0-36.0) 03/21/20 19:35 RDW 13.1 % (11.7-14.6) 03/21/20 19:35 Plt Count 189 10^3/uL (130-400) 03/21/20 19:35 MPV 9.6 fL (8.0-11.0) 03/21/20 19:35 Immature Gran % 0.2 03/21/20 19:35 Neutrophils % 60.6 03/21/20 19:35 Lymphocytes % 28.1 03/21/20 19:35 Monocytes % 9.9 03/21/20 19:35 Eosinophils % 0.8 03/21/20 19:35 Basophils % 0.4 03/21/20 19:35 Absolute Neutrophils 2.93 10^3/uL (1.2-6.7) 03/21/20 19:35 Absolute Lymphocytes 1.36 10^3/uL (1.2-3.4) 03/21/20 19:35 Absolute Monocytes 0.48 10^3/uL (0.1-0.8) 03/21/20 19:35 Absolute Eosinophils 0.04 10^3/uL (0.0-0.7) 03/21/20 19:35 Absolute Basophils 0.02 10^3/uL (0.0-0.2) 03/21/20 19:35 Sodium 138 mmol/L (136-145) 03/22/20 10:20 Potassium 3.2 mmol/L (3.5-5.1) L 03/22/20 10:20 Chloride 98 mmol/L (98-107) 03/22/20 10:20 Carbon Dioxide 33.6 mmol/L (21.0-32.0) H 03/22/20 10:20 Anion Gap 6.4 mmol/L (3-11) 03/22/20 10:20 BUN 22 mg/dL (7-18) H 03/22/20 10:20 Creatinine 1.23 mg/dL (0.55-1.02) H D 03/22/20 10:20 Estimated GFR/1.73 m2 45.67 (mL/min/1.73m2) 03/22/20 10:20 Glucose 103 mg/dL (74-106) 03/22/20 10:20 Calcium 8.5 mg/dL (8.5-10.1) 03/22/20 10:20 Total Bilirubin 0.4 mg/dL (0.2-1.0) 03/21/20 19:35 AST 24 U/L (15-37) 03/21/20 19:35 ALT 28 U/L (14-59) 03/21/20 19:35 Alkaline Phosphatase 78 U/L (46-116) 03/21/20 19:35 NT-Pro-B Natriuret Pep 31 pg/mL (<300) 03/22/20 10:20 Total Protein 8.4 g/dL (6.4-8.2) H 03/21/20 19:35 Albumin 3.7 g/dL (3.4-5.0) 03/21/20 19:35 TSH 1.03 uIU/mL (0.36-3.74) 03/22/20 10:20 Urine Color Yellow (Yellow) 03/23/20 12:15 Urine Clarity Clear (Clear) 03/23/20 12:15 Urine pH 6.0 (5-8) 03/23/20 12:15 Ur Specific Brandt 1.020 (1.005-1.025) 03/23/20 12:15 Urine Protein Negative mg/dL (Negative) 03/23/20 12:15 Urine Ketones Negative mg/dL (Negative) 03/23/20 12:15 Urine Blood Trace-intact (Negative) H 03/23/20 12:15 Urine Nitrite Negative (Negative) 03/23/20 12:15 Urine Bilirubin Negative (Negative) 03/23/20 12:15 Urine Urobilinogen 0.2 EU/dL (Up TO 0.2) 03/23/20 12:15 Ur Leukocyte Esterase Negative (Negative) 03/23/20 12:15 Urine RBC 5-10 HPF (0-2) H 03/23/20 12:15 Urine WBC 0-2 HPF (0-5) 03/23/20 12:15 Ur Epithelial Cells Moderate HPF (Negative) 03/23/20 12:15 Urine Crystals Negative HPF (Negative) 03/23/20 12:15 Urine Bacteria Rare HPF (Negative) 03/23/20 12:15 Urine Casts Negative LPF (Negative) 03/23/20 12:15 Urine Mucus Negative (Negative) 03/23/20 12:15 Ur Culture Indicated? No 03/23/20 12:15 Urine Glucose Negative mg/dL (Negative) 03/23/20 12:15 Urine Opiates Screen Negative (Negative) 03/23/20 12:15 Urine Methadone Screen Positive (Negative) A 03/23/20 12:15 Ur Barbiturates Screen Negative (Negative) 03/23/20 12:15 Ur Tricyclics Screen Positive (Negative) A 03/23/20 12:15 Ur Amphetamines Screen Positive (Negative) A 03/23/20 12:15 U Benzodiazepines Scrn Negative (Negative) 03/23/20 12:15 Urine Cocaine Screen Negative (Negative) 03/23/20 12:15 Ur THC Screen Positive (Negative) A 03/23/20 12:15 Ethyl Alcohol < 3.0 mg/dL (<3) 03/21/20 19:35 COVID-19 PCR Negative (Negative) 03/21/20 22:30 Nasopharyn COVID-19 PCR Not Applicable 03/21/20 22:30 Ref Test Perform Site [facility] 03/21/20 22:30
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
[2020-03-23 15:16] VITALS: PULSE 91; O2SAT 98
--- NOTE | 2020-03-23 17:12 | CMDISCH_ITS ---
- If Service Date Differs Date of service: 03/23/20 Time of Service: 17:12 LACE Index Scoring Tool - Questions: Length of Stay (in days): 3 Acuity (Admit via E.D.?): Yes Care Management Discharge Reason for Hospitalization: SI (resolved) Discharge Plan: Joe is up ambulating in the room she is alert and able to care for herself. She showered today, put her makeup on and was able to contact the resources CM provided. Joe is being discharged today she will go to a friends house after discharge and await for economic services to contact her with placement. CM contacted [facility] and [facility]. Joe will need to keep her appointment with ENT services follow up on her right ear, she will be on oral abx. A ride was coordianted through [facility]. CM faxed referral to [facility]. Patient/Family Education Needs: Discharge education, limitations and follow up plan of care including ask me three and self management. Services Needed at Discharge: Transportation - MH Services (Omit if N/A) Current MH Services: [facility]
== END 2020-03-23 16:33 | disposition home or self-care (01) ==
LOC: ER 22:35 → MS 23:36
PROVIDERS: Nurse Practitioner Acute Care; Admitting Provider General Practice; Emergency Provider Physician Assistant; PCP Family Medicine; Visit Provider General Practice
DX: F31.0 Bipolar disorder, current episode hypomanic (principal); R45.851 Suicidal ideations; H60.11 Cellulitis of right external ear; L98.492 Non-pressure chronic ulcer of skin of other sites with fat layer exposed; Z79.899 Other long term (current) drug therapy; J45.909 Unspecified asthma, uncomplicated; F98.8 Other specified behavioral and emotional disorders with onset usually occurring in childhood and adolescence; M47.812 Spondylosis without myelopathy or radiculopathy, cervical region; G89.4 Chronic pain syndrome; K74.60 Unspecified cirrhosis of liver; Z91.5 Personal history of self-harm; M35.9 Systemic involvement of connective tissue, unspecified; J44.9 Chronic obstructive pulmonary disease, unspecified; K21.9 Gastro-esophageal reflux disease without esophagitis; R00.0 Tachycardia, unspecified; B18.2 Chronic viral hepatitis C; F17.210 Nicotine dependence, cigarettes, uncomplicated; F11.11 Opioid abuse, in remission; R56.9 Unspecified convulsions; R11.2 Nausea with vomiting, unspecified
CPT/HCPCS: 36415; 36416; 80048; 80053; 80307; 82962; 87077; 96361; 96365; 99222; 99232; 99239; 99285; U0003; 80320; 81003; 81015; 83880; 84443; 85025; 87070; 87186; 99217; 99225; 99284; G0378

== ENCOUNTER 2020-03-28 14:35 | Emergency (ER) | payer MEDICAID, SELFPAY ==
[2020-03-28] VITALS (24 sets, daily range): BP systolic 112–136; BP diastolic 69–79; PULSE 76–106; RESP 8–23; TEMP 36.2; O2SAT 97–100
--- NOTE | 2020-03-28 14:45 | DI.RAD_ITS ---
EXAM: XR CHEST 1V IN DI DEPT CLINICAL HISTORY: Seizure activity TECHNIQUE: COMPARISON: CR RIGHT SHOULDER COMPLETE from 08/19/2017 CR XR PORTABLE CHEST AP from 09/26/2018 FINDINGS: Severe deformity of right humeral head and glenoid noted, presumably post-traumatic secondary degener ative change. Additional radiographs may be obtained if clinically indicated The heart is not enlarged and the lungs are clear and well expanded. IMPRESSION: No evidence of acute process. RADIATION DOSE DELIVERED: Total DLP
--- NOTE | 2020-03-28 14:45 | RT.EKG_ITS ---
APPROVED REPORT Exam: Resting ECG Patient Location: E HR:87 bpm ECG Measurements Heart Rate 87 AXIS WY 152 P 50 QRSd 88 QRS 82 QT 353 T 61 QTc 426 Conclusion Sinus rhythm...normal P axis, V-rate 60- 99
[2020-03-28] MEDS: Normal Saline 1,000 ML 1000 ML IV (15:15)
--- NOTE | 2020-03-28 15:15 | DI.CT_ITS ---
EXAM: CT HEAD CERVICAL SPINE WO CLINICAL HISTORY: Question of seizure, fall, injury, pain TECHNIQUE: COMPARISON: CT CT head cerv spine facial wo from 10/08/2018 FINDINGS: CT examination cervical spine was performed according to the usual protocol. There is a mid cervical kyphotic fusion which appears old. No evidence of acute fracture. No evidence of facet dislocation . Tracheolaryngeal structures appear intact. Right apical pulmonary bleb noted with emphysematous c hanges of the lungs. Noncontrast cranial CT was performed. Ventricular system is normal in appearance. There is no evide nce of acute intracranial hemorrhage, mass effect, or midline shift. The orbital and temporal bone s tructures appear intact. Visualized paranasal sinuses and mastoid air cells appear clear. IMPRESSION: No evidence of acute cervical spine injury. No evidence of acute intracranial injury. RADIATION DOSE DELIVERED: 927.93mGy.cm Total DLP
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
[2020-03-28 15:23] LABS: Bilirubin Negative (Negative); Blood Negative (Negative); Clarity Clear (Clear); Glucose Negative (Negative); Ketones Negative (Negative); Leukocyte Esterase Negative (Negative); Nitrite Negative (Negative)
[2020-03-28 15:34] LABS: INR 1.1 (0.9-1.1); PTT Activated 23.1 sec (21.0-31.4)
[2020-03-28 15:38] LABS: *AMPHETAMINES SCREEN URINE Negative (Negative); *BARBITURATES SCREEN URINE Negative (Negative); *BENZODIAZEPINES SCREEN URINE Negative (Negative); Cannabinoids THC POSITIVE (Negative); Cocaine Screen,Urine Negative (Negative); METHADONE URINE SCREEN Negative (Negative); OPIATES URINE SCREEN Negative (Negative)
[2020-03-28 15:40] LABS: Tricyclic Antidepressants POSITIVE (Negative)
[2020-03-28 15:43] LABS: ALT 30 U/L (14-59); AST 25 U/L (15-37); Albumin 3.8 g/dL (3.4-5.0); Alkaline Phosphatase 77 U/L (46-116); Anion Gap 8.7 mmol/L (3-11); BUN 21 mg/dL (7-18); Bilirubin, Total 0.6 mg/dL (0.2-1.0); CO2 27.3 mmol/L (21.0-32.0); CREATININE 0.83 mg/dL (0.55-1.02); Calcium 10.1 mg/dL (8.5-10.1); Chloride 103 mmol/L (98-107); Glucose 95 mg/dL (74-106); Lipase 152 U/L (73-393); Magnesium 1.9 mg/dL (1.8-2.4); Potassium 4.3 mmol/L (3.5-5.1); Sodium 139 mmol/L (136-145); TSH 0.91 uIU/mL (0.36-3.74); Total Protein 8.6 g/dL (6.4-8.2)
[2020-03-28 15:54] LABS: ETHANOL BLOOD < 3.0 mg/dL (<3)
[2020-03-28 16:25] LABS: Troponin I < 0.05 ng/mL (<0.06)
--- NOTE | 2020-03-28 16:45 | DI.VRAD_ITS ---
PROCEDURE INFORMATION: Exam: XR Chest, 1 View Exam date and time: 03/28/2020 4:29 PM Age: 55 years old Clinical indication: Other: Seizure activity TECHNIQUE: Imaging protocol: XR of the chest Views: 1 view. COMPARISON: CR XR PORTABLE CHEST AP 09/26/2018 11:02 AM FINDINGS: Lungs: Unremarkable. No consolidation. Pleural space: Unremarkable. No pleural effusion. No pneumothorax. Heart/Mediastinum: Unremarkable. No cardiomegaly. Bones/joints: Increasing sclerosis in the proximal right humeral head and neck IMPRESSION: No acute findings in the chest. Increasing sclerosis in the proximal right humeral head and neck. Recommend dedicated images of the right shoulder if clinically indicated Dictated and Authenticated by: Rivka Cam MD. Ordering:KAYLIE Wilson MD
--- NOTE | 2020-03-28 16:51 | DI.VRAD_ITS ---
PROCEDURE INFORMATION: Exam: CT Head Without Contrast Exam date and time: 03/28/2020 4:21 PM Age: 55 years old Clinical indication: Other: Question of seizure, fall, injury, pain TECHNIQUE: Imaging protocol: Computed tomography of the head without contrast. Radiation optimization: All CT scans at this facility use at least one of these dose optimization techniques: automated exposure control; mA and/or kV adjustment per patient size (includes targeted exams where dose is matched to clinical indication); or iterative reconstruction. COMPARISON: CT head cerv spine facial wo 10/08/2018 2:30 PM FINDINGS: Brain: Normal. No hemorrhage. Unremarkable white matter. No mass effect. Ventricles: Normal. No ventriculomegaly. Bones/joints: Unremarkable. No acute fracture. Sinuses: Visualized sinuses are unremarkable. No fluid levels. Mastoid air cells: Visualized mastoid air cells are well aerated. Soft tissues: Unremarkable. IMPRESSION: No acute intracranial abnormality. PROCEDURE INFORMATION: Exam: CT Cervical Spine Without Contrast Exam date and time: 03/28/2020 4:21 PM Age: 55 years old Clinical indication: Other: Question of seizure, fall, injury, pain TECHNIQUE: Imaging protocol: Computed tomography images of the cervical spine without contrast. Radiation optimization: All CT scans at this facility use at least one of these dose optimization techniques: automated exposure control; mA and/or kV adjustment per patient size (includes targeted exams where dose is matched to clinical indication); or iterative reconstruction. COMPARISON: CT head cerv spine facial wo 10/08/2018 2:30 PM FINDINGS: Vertebrae: Fusion of C5, C6 and C7 disc spaces. These 3 vertebral bodies appear wedged and fused simultaneously. This causes focal kyphosis of the cervical spine. Fusion of C5, C6 and C7 facets. No acute vertebral body compression. Discs/Spinal canal/Neural foramina: Facet arthrosis at C2-C3, C3-C4 and C4-C5. Moderate bulge at C3-C4 causing mild neural foraminal stenosis. Mild left disc osteophyte complex at C4-C5 causing mild left neural foraminal narrowing. No spinal canal stenosis. Soft tissues: Unremarkable. Lungs: Lung apices are normal. IMPRESSION: No acute finding. Paraseptal emphysematous changes in the right pulmonary apex. Dictated and Authenticated by: Yesika Tomas MD. Ordering:KAYLIE Wilson MD
[2020-03-28] MEDS: diphenhydrAMINE 50 MG/ML VIAL 25 MG IVP (17:08)
[2020-03-28] MEDS: Normal Saline 50 ML (17:09)
[2020-03-28] MEDS: Metoclopramide 10 MG/2 ML VIAL IVP (17:09)
== END 2020-03-28 18:45 | disposition home or self-care (01) ==
PROVIDERS: Physician Assistant; Emergency Provider Physician Assistant; PCP Family Medicine
DX: R51 Headache (principal); M54.2 Cervicalgia; F44.5 Conversion disorder with seizures or convulsions; F41.8 Other specified anxiety disorders; J44.9 Chronic obstructive pulmonary disease, unspecified; F17.210 Nicotine dependence, cigarettes, uncomplicated
CPT/HCPCS: 36415; 80053; 80307; 83690; 93005; 96361; 96374; 96375; 99285; 70450; 71045; 72125; 80320; 81003; 83735; 84443; 84484; 85610; 85730; 93010; J1200; J2765

== ENCOUNTER 2020-07-31 02:15 | Emergency (ER) | payer MEDICAID, SELFPAY ==
[2020-07-31 02:15] VITALS: BP 138/86; PULSE 112; RESP 16; TEMP 36.8; O2SAT 96
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
--- NOTE | 2020-07-31 02:55 | NUR.NOTE ---
Nursing Note: Patient speaking with Irina from [facility] for eval.
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
== END 2020-07-31 04:24 | disposition home or self-care (01) ==
LOC: ER 03:47
PROVIDERS: Emergency Provider Student in an Organized Health Care Education/Training Program; PCP Family Medicine
DX: F41.8 Other specified anxiety disorders (principal); Z63.79 Other stressful life events affecting family and household; J44.9 Chronic obstructive pulmonary disease, unspecified; F17.210 Nicotine dependence, cigarettes, uncomplicated
CPT/HCPCS: 80053; 80307; 99283; 80320; 80329; 84443; 85025

== ENCOUNTER 2025-02-09 01:50 | Outpatient (CLI) | payer MEDICAID, SELFPAY ==
--- NOTE | 2025-02-09 | DI.RAD_ITS ---
Exam(s) XR LUMBAR SPINE COMPLETE EXAM: XR LUMBAR SPINE COMPLETE CLINICAL HISTORY: ACUTE ON CHRONIC MIDLINE LOW BACK PAIN,M54.50,H/O FALL. TECHNIQUE: 2D digital imaging was performed. COMPARISON: No exams were available for comparison FINDINGS: Five views. There is a scoliosis convex right. There is variant anatomy here. There are only 4 non rib-bearing lumbar vertebrae. Fifth segment is sacralized. There is no evidence of fracture. There is grade 1 anterolisthesis L5 upon S1. No obvious pars defects. There is also significant disc space narrowing at this level. Other disc space levels appear relatively preserved in height. There facet arthropathy at L5-S1 level. Facet joints above this level appeared relatively unremarkable. Bone density normal. No osseous lesions. For, there is complete ankylosis of the sacroiliac joints. Incidentally noted is a interventional placed device in left side of the abdomen at upper L1 level. Possibly related to renal vessel. IMPRESSION: There is complete ankylosis of both sacroiliac joints. Suspicious for advanced chronic ankylosing spondylitis. However, there are no syndesmophytes evident in the lumbar spine. Other findings as above. DATA REPOSITORY: RADIATION DOSE DELIVERED:
--- NOTE | 2025-02-09 | DI.MAMMO_ITS ---
Exam(s) MAMMO SCREENING EXAM: MAMMO SCREENING CLINICAL HISTORY: SCREENING,Z12.31. TECHNIQUE: Bilateral full field digital CC and MLO mammographic images were obtained with 3D tomosynthesis and utilizing computer aided detection (CAD). COMPARISON: Prior mammograms were reviewed. FINDINGS: New findings in the right breast. In the left breast on the MLO view there is an asymmetric density-possible nodule measuring 8 by 4 mm located 7 cm in from the nipple above the midline. Spot compression recommended. There are no malignant-appearing microcalcification groups in this region or elsewhere in either breast. There is no significant architectural distortion nor skin thickening-retraction. IMPRESSION: 1. No radiographic evidence of malignancy in the right breast. 2. Asymmetric density-possible nodule left breast. Spot compression MLO view and breast ultrasound are recommended. BI-RADS Category 0 - Incomplete: Need additional imaging evaluation Breast Density - Category B - There are scattered areas of fibroglandular density. Breast density Category C or D implies that the patient has dense breast tissue. Dense breast tissue can make it harder to find cancer on a mammogram. Dense breast tissue is also associated with an increased risk of breast cancer. This information about the result of the mammogram report was provided to the patient to raise their awareness. Use this report when you speak with the patient about their risks for breast cancer, which includes their family history. At that time, you may recommend additional screening tests (Ultrasound or MRI) as these tests may add significant information. A negative radiographic report should not delay biopsy if a dominant or clinically suspicious mass is present. Up to ten percent of cancers are not identified on mammography. A negative report may reinforce clinical impression. Adenosis and dense breasts may obscure an underlying neoplasm. False positive reports average 6 to 10%. Patient will receive a letter notifying them of these results.
== END 2025-02-09 02:10 ==
PROVIDERS: PCP Family Medicine; Visit Provider Family Medicine
DX: Z12.31 Encounter for screening mammogram for malignant neoplasm of breast (principal); M46.1 Sacroiliitis, not elsewhere classified
CPT/HCPCS: 77063; 77067; 72110

== ENCOUNTER 2025-02-09 10:24 | Outpatient (CLI) | payer MEDICAID, SELFPAY ==
[2025-02-09 10:05] LABS: Abs Immature Grans 0.01 10^3/uL (0.0-0.06); HCT 40.5 % (36.0-46.0); HGB 13.3 g/dL (11.2-15.7); Immature Grans % 0.3 %; MCH 30.0 pg (27.0-33.0); MCHC 32.8 % (32.0-36.0); MCV 91 fL (80-95); MPV 10.5 fL (8.0-11.0); RBC 4.43 10^6/uL (3.93-5.22); RDW 13.2 % (11.7-14.6); RDW-SD 44.1 fL; WBC 3.71 10^3/uL (4.4-10.8)
[2025-02-09 10:20] LABS: Platelet Count 92 10^3/uL (130-400); RBC Morphology Normal
[2025-02-09 10:54] LABS: Hemoglobin A1C 4.8 % (<5.7)
[2025-02-09 11:07] LABS: ALT 53 U/L (14-59); AST 54 U/L (15-37); Albumin 3.5 g/dL (3.4-5.0); Alkaline Phosphatase 56 U/L (46-116); Anion Gap 5.9 mmol/L (3-11); BUN 18 mg/dL (7-18); Bilirubin, Total 0.5 mg/dL (0.2-1.0); CO2 28.1 mmol/L (21.0-32.0); Calcium 8.5 mg/dL (8.5-10.1); Calculated LDL 25 mg/dL (<100); Chloride 108 mmol/L (98-107); Cholesterol 75 mg/dL (<200); Estimated GFR 100.81 (mL/min/1.73m2); Glucose 102 mg/dL (74-106); HDL Cholesterol 43 mg/dL (>or=50); Potassium 4.4 mmol/L (3.5-5.1); Sodium 142 mmol/L (136-145); TSH 1.10 uIU/mL (0.36-3.74); Total Protein 7.4 g/dL (6.4-8.2); Triglyceride 36 mg/dL (<150); Vitamin B12 412 pg/mL (193-986)
[2025-02-09 11:18] LABS: Folate > 20.0 ng/mL (8.6-20.0)
== END 2025-02-09 10:25 | disposition home or self-care (01) ==
LOC: LBO 10:24
PROVIDERS: PCP Family Medicine; Visit Provider Family Medicine
DX: G40.909 Epilepsy, unspecified, not intractable, without status epilepticus (principal); R20.2 Paresthesia of skin; Z00.00 Encounter for general adult medical examination without abnormal findings
CPT/HCPCS: 36415; 80053; 80061; 82607; 82746; 83036; 84439; 84443; 85025

== ENCOUNTER 2025-02-16 02:49 | Outpatient (CLI) | payer MEDICAID, SELFPAY ==
--- NOTE | 2025-02-16 | DI.MAMMO_ITS ---
Exam(s) MAMMO SCREEN CALL BACK UNI EXAM: MAMMO SCREEN CALL BACK UNI CLINICAL HISTORY: 8 x 4 mm asymmetric density-possible nodule, Lt breast, 7 cm from nipple. TECHNIQUE: Mediolateral oblique Full Field Digital Mammography views of the left breast with Computer Aided Diagnosis. COMPARISON: Comparison is made with prior examinations. FINDINGS: Mammography/Tomosynthesis: Masses/Architectural Distortion: The area of concern does not persist on the additional views. No suspicious masses or areas of architectural distortion are present. Microcalcifictions: No suspicious pleomorphic-type are seen. Skin Thickening/Nipple Retraction: None. IMPRESSION: 1. No evidence of malignancy is noted. 2. Unless there is more urgent need, follow-up screening mammography is recommended, as per [place] [employer] guidelines. BI-RADS Category 1 - Negative Breast Density - Category B - There are scattered areas of fibroglandular density. Breast density Category C or D implies that the patient has dense breast tissue. Dense breast tissue can make it harder to find cancer on a mammogram. Dense breast tissue is also associated with an increased risk of breast cancer. This information about the result of the mammogram report was provided to the patient to raise their awareness. Use this report when you speak with the patient about their risks for breast cancer, which includes their family history. At that time, you may recommend additional screening tests (Ultrasound or MRI) as these tests may add significant information. A negative radiographic report should not delay biopsy if a dominant or clinically suspicious mass is present. Up to ten percent of cancers are not identified on mammography. A negative report may reinforce clinical impression. Adenosis and dense breasts may obscure an underlying neoplasm. False positive reports average 6 to 10%. Patient will receive a letter notifying them of these results.
== END 2025-02-16 03:09 ==
LOC: DI 02:49
PROVIDERS: PCP Family Medicine; Visit Provider Family Medicine
DX: Z12.31 Encounter for screening mammogram for malignant neoplasm of breast (principal); R92.323 Mammographic fibroglandular density, bilateral breasts
CPT/HCPCS: 77063; 77067

== ENCOUNTER 2025-02-16 09:33 | Outpatient (CLI) | payer MEDICAID, SELFPAY ==
--- NOTE | 2025-02-16 09:45 | RT.EKG_ITS ---
APPROVED REPORT Exam: Resting ECG Reason for Exam: HIGH RISK MEDICATION USE Patient Location: O HR:71 bpm ECG Measurements Heart Rate 71 AXIS AZ 156 P 71 QRSd 96 QRS 75 QT 415 T 19 QTc 451 Conclusion Sinus rhythm...normal P axis, V-rate 50- 99 Probable left atrial enlargement...P >50mS, <-0.10mV V1 Otherwise normal ECG
== END 2025-02-16 09:34 | disposition home or self-care (01) ==
PROVIDERS: PCP Family Medicine; Visit Provider Family Medicine
DX: Z79.899 Other long term (current) drug therapy (principal)
CPT/HCPCS: 93005; 93010

== ENCOUNTER 2025-03-18 16:44 | Outpatient (CLI) | payer MEDICAID, SELFPAY ==
[2025-03-18 17:02] LABS: ESR 15 mm/hr (0-30)
[2025-03-18 17:56] LABS: Lipase 36 U/L (<78)
[2025-03-18 18:04] LABS: C-Reactive Protein < 0.50 mg/dL (<or=0.5)
== END 2025-03-18 16:45 | disposition home or self-care (01) ==
LOC: LBO 16:45
PROVIDERS: PCP Family Medicine; Visit Provider Family Medicine
DX: M24.60 Ankylosis, unspecified joint (principal); R11.0 Nausea
CPT/HCPCS: 36415; 83690; 85652; 86812; 86038; 86140; 86431

== ENCOUNTER 2025-04-16 03:46 | Outpatient (CLI) | payer MEDICAID, SELFPAY ==
--- NOTE | 2025-04-16 11:14 | DI.RAD_ITS ---
Exam(s) XR HIP PELVIS ADULT BL EXAM: XR HIP PELVIS ADULT BL CLINICAL HISTORY: PAIN RT HIP M25.551 PAIN LT HIP M25.552 BILAT HIP PAIN +RA CHRONIC PAIN. TECHNIQUE: 2D digital imaging was performed. COMPARISON: No exams were available for comparison FINDINGS: 3 views No evidence of pelvic nor hip fracture. No osseous lesions. There is mild hip joint space narrowing noted bilaterally, slightly more so on the right side. There are no osteophytes evident. There are no obvious degenerative subarticular cysts. IMPRESSION: Mild degenerative changes in the hips, slightly more so on the right side. DATA REPOSITORY: RADIATION DOSE DELIVERED:
== END 2025-04-16 04:06 ==
LOC: DI 03:46
PROVIDERS: PCP Family Medicine; Visit Provider Family Medicine
DX: M25.552 Pain in left hip (principal); M25.551 Pain in right hip; M16.11 Unilateral primary osteoarthritis, right hip; M16.12 Unilateral primary osteoarthritis, left hip
CPT/HCPCS: 73521

== ENCOUNTER 2025-05-09 13:20 | Emergency (ER) | payer MEDICAID, SELFPAY ==
[2025-05-09 13:23] VITALS: BP 108/79; PULSE 87; RESP 14; TEMP 36.6; O2SAT 92
[2025-05-09 13:51] VITALS: BP 108/79; PULSE 87; RESP 14; TEMP 36.6; O2SAT 92
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
[2025-05-09] MEDS: Sulfameth/Trimeth DS TAB 1 TAB PO (13:57)
[2025-05-09] MEDS: Amoxicillin 875/Clav. 125 TAB PO (13:57)
--- NOTE | 2025-05-10 17:01 | NUR.NOTE ---
Access chart to determine if a referral had been put in on this patient. Nursing Note:
== END 2025-05-09 14:11 | disposition home or self-care (01) ==
PROVIDERS: Emergency Provider Emergency Medicine; PCP Family Medicine
DX: L03.115 Cellulitis of right lower limb (principal)
CPT/HCPCS: 99283; 99284

== ENCOUNTER 2025-06-01 00:58 | Outpatient (CLI) | payer MEDICAID, SELFPAY ==
--- NOTE | 2025-06-01 10:05 | DI.RAD_ITS ---
Exam(s) XR FOOT RT COMPLETE EXAM: XR FOOT RT COMPLETE CLINICAL HISTORY: right foot pain,m79.671. TECHNIQUE: 2D digital imaging was performed. COMPARISON: CR,XR XR FOOT LT COMPLETE from 01/09/2020 FINDINGS: 3 views No evidence of acute fracture. There are danced degenerative changes in the ankle-hindfoot. Moderate advanced degenerative changes in the great toe metatarsophalangeal joint. No acute fractures identified. There is some swelling over the lateral aspect of the head of the 5th metatarsal but no fracture of the head of the 5th metatarsal evident. IMPRESSION: No acute fractures evident in the right foot. DATA REPOSITORY: RADIATION DOSE DELIVERED:
--- NOTE | 2025-06-01 10:05 | DI.RAD_ITS ---
Exam(s) XR ANKLE RT COMPLETE EXAM: XR ANKLE RT COMPLETE CLINICAL HISTORY: Right ankle pain,m25.571. TECHNIQUE: 2D digital imaging was performed. COMPARISON: CR Ankle R from 10/08/2018 FINDINGS: 3 views Again noted are severe degenerative changes in the ankle tibiotalar joint but no evidence of acute fracture. No radiopaque foreign body. No osseous lesions evident. IMPRESSION: No acute fracture. Advanced severe osteoarthritic degenerative change. DATA REPOSITORY: RADIATION DOSE DELIVERED:
== END 2025-06-01 01:18 ==
LOC: DI 00:58
PROVIDERS: PCP Family Medicine; Visit Provider Podiatrist
DX: M25.571 Pain in right ankle and joints of right foot (principal); M79.671 Pain in right foot; M17.11 Unilateral primary osteoarthritis, right knee
CPT/HCPCS: 73610; 73630